=== PATIENT | male | born 1980 | race Caucasian/White ===

== ENCOUNTER → 2016-12-24 | Outpatient (REF) | payer OTHER ==
[2016-12-24 11:57] LABS: ALBUMIN 4.4 GM/DL (3.2-5.2); ALBUMIN/GLOBULIN RATIO 1.42 (1.00-1.93); ALKALINE PHOSPHATASE 85 U/L (45-117); ALT/SGPT 39 U/L (12-78); ANION GAP 9 MEQ/L (8-16); AST/SGOT 23 U/L (15-37); BILIRUBIN,TOTAL 0.4 MG/DL (0.2-1.0); BLOOD UREA NITROGEN 12 MG/DL (7-18); CALCIUM LEVEL 9.9 MG/DL (8.5-10.1); CARBON DIOXIDE LEVEL 24 MEQ/L (21-32); CHLORIDE LEVEL 108 MEQ/L (98-107); CHOLESTEROL LEVEL 161 MG/DL (<200); GLOMERULAR FILTRATION RATE > 60.0 (>60); GLUCOSE, FASTING 94 MG/DL (70-105); POTASSIUM SERUM 4.1 MEQ/L (3.5-5.1); SODIUM LEVEL 141 MEQ/L (136-145); TOTAL PROTEIN 7.5 GM/DL (6.4-8.2); TRIGLYCERIDES LEVEL 215 MG/DL (<150); URIC ACID 6.6 MG/DL (3.5-7.2)
== END ==
LOC: M SFHCPLAZ 09:52
PROVIDERS: ATTEND Family Medicine
DX: M1A.9XX0 Chronic gout, unspecified, without tophus (tophi) (principal); R55 Syncope and collapse; Z82.41 Family history of sudden cardiac death

== ENCOUNTER → 2017-03-24 | Outpatient (REF) | payer OTHER | LOC: M SFHCPLAZ 10:46 | PROVIDERS: ATTEND Family Medicine | DX: M1A.9XX0 Chronic gout, unspecified, without tophus (tophi) (principal); R42 Dizziness and giddiness ==

== ENCOUNTER → 2017-04-16 | Outpatient (CLI) | payer OTHER ==
[~2017-04-16] MED LIST: PROHANCE 279.3MG/ML 15ML VIAL (A9576) As Ordered ONE
--- NOTE | 2017-04-17 09:59 | REP ---
MRI BRAIN WITHOUT AND WITH CONTRAST: HISTORY: Vertigo. CONTRAST: ProHance 24 mL. There are no areas of abnormal signal intensity in the brain parenchyma. There is no intraparenchymal hemorrhage, infarct, mass or midline shift. There is no abnormal enhancement. 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 The ventricular system is normal in appearance. There is no extracerebral collection. There is no cerebellopontine angle mass. The inner ear structures are normal in appearance. The mastoid air cells and sinuses are clear. IMPRESSION: There is no intracranial lesion. Signed by Emiliano Cintron MD 04/17/2017 10:02 A
== END ==
LOC: M RAD 18:37
PROVIDERS: ATTEND Family Medicine
DX: R42 Dizziness and giddiness (principal)
CPT/HCPCS: 70553; A9576

== ENCOUNTER 2017-06-14 20:26 | Emergency (ER) | payer OTHER ==
[2017-06-14] MEDS: NORCO 5/325MG TABLET (BULK FOR ED) PO (21:49)
== END 2017-06-14 21:58 | disposition home or self-care (01) ==
LOC: M ED 20:26
DX: S92.001A Unspecified fracture of right calcaneus, initial encounter for closed fracture (principal); X58.XXXA Exposure to other specified factors, initial encounter; Y92.009 Unspecified place in unspecified non-institutional (private) residence as the place of occurrence of the external cause; Y93.89 Activity, other specified; Y99.8 Other external cause status; M10.9 Gout, unspecified; F17.210 Nicotine dependence, cigarettes, uncomplicated; Z79.899 Other long term (current) drug therapy; Z88.8 Allergy status to other drugs, medicaments and biological substances; Z91.048 Other nonmedicinal substance allergy status
CPT/HCPCS: 73630

== ENCOUNTER → 2017-07-25 | Outpatient (REF) | payer OTHER ==
[2017-07-25 12:46] LABS: BASO # 0.1 10^3/uL (0.0-0.2); BASO % 0.7 % (0.0-1.0); EOS # 0.3 10^3/uL (0.0-0.50); EOS % 3.1 % (0.0-3.0); HEMATOCRIT 47.8 % (42.0-52.0); HEMOGLOBIN 15.8 g/dl (14.0-18.0); IMMATURE GRANULOCYTE % 0.6 % (0-3.0); LYMPH # 3.1 10^3/uL (1.5-4.5); LYMPH % 34.1 % (24.0-44.0); MEAN CORPUSCULAR HEMOGLOBIN 27.9 pg (27.0-33.0); MEAN CORPUSCULAR HGB CONC 33.1 g/dl (32.0-36.5); MEAN CORPUSCULAR VOLUME 84.5 fl (80.0-96.0); MONO # 0.7 10^3/uL (0.0-0.8); MONO % 7.4 % (0.0-5.0); NEUTROPHILS # 4.9 10^3/uL (1.8-7.7); NEUTROPHILS % 54.1 % (36.0-66.0); PLATELET COUNT, AUTOMATED 225 10^3/uL (150-450); RED BLOOD COUNT 5.66 10^6/uL (4.30-6.10); RED CELL DISTRIBUTION WIDTH 13.1 % (11.5-14.5)
[2017-07-25 12:59] LABS: ALBUMIN 4.4 GM/DL (3.2-5.2); ALBUMIN/GLOBULIN RATIO 1.33 (1.00-1.93); ALKALINE PHOSPHATASE 82 U/L (45-117); ALT/SGPT 61 U/L (12-78); ANION GAP 9 MEQ/L (8-16); AST/SGOT 29 U/L (7-37); BILIRUBIN,TOTAL 0.6 MG/DL (0.2-1.0); BLOOD UREA NITROGEN 15 MG/DL (7-18); CALCIUM LEVEL 9.1 MG/DL (8.5-10.1); CARBON DIOXIDE LEVEL 27 MEQ/L (21-32); CHLORIDE LEVEL 106 MEQ/L (98-107); CREATININE FOR GFR 0.81 MG/DL (0.70-1.30); GLOMERULAR FILTRATION RATE > 60.0 (>60); GLUCOSE, FASTING 89 MG/DL (70-100); SODIUM LEVEL 142 MEQ/L (136-145); TOTAL PROTEIN 7.7 GM/DL (6.4-8.2)
== END ==
LOC: M LABNEURO 10:57
DX: G43.909 Migraine, unspecified, not intractable, without status migrainosus (principal)

== ENCOUNTER → 2017-12-15 | Outpatient (REF) | payer OTHER ==
[2017-12-15 16:08] LABS: ERYTHROCYTE SEDIMENTATION RATE 10 mm/hr (0-15)
[2017-12-15 16:10] LABS: C REACTIVE PROTEIN QUANTITATIV 0.96 MG/DL (0.00-0.30)
[2017-12-17 14:58] LABS: IgG P18 AB Absent (.); IgG P23 AB Absent (.); IgG P28 AB Absent (.); IgG P30 AB Absent (.); IgG P39 AB Absent (.); IgG P41 AB Absent (.); IgG P45 AB Absent (.); IgG P58 AB Absent (.); IgG P66 AB Absent (.); IgG P93 AB Absent (.); IgM P23 AB Present (.); IgM P39 AB Absent (.); IgM P41 AB Absent (.); LYME IgG WB INTERPRETATION Negative (.); LYME IgM WB INTERPRETATION Negative (.)
== END ==
LOC: M SFHCPLAZ 12:32
DX: R26.0 Ataxic gait (principal)
CPT/HCPCS: 86140

== ENCOUNTER → 2018-03-24 | Outpatient (CLI) | payer OTHER | LOC: M SLEEP HO 12:18 | DX: G47.33 Obstructive sleep apnea (adult) (pediatric) (principal) | CPT/HCPCS: G0399 ==

== ENCOUNTER → 2018-03-24 | Outpatient (CLI) | payer OTHER | LOC: M PAIN 10:00 | DX: G43.109 Migraine with aura, not intractable, without status migrainosus (principal); M50.20 Other cervical disc displacement, unspecified cervical region; M54.12 Radiculopathy, cervical region; F41.9 Anxiety disorder, unspecified; F32.9 Major depressive disorder, single episode, unspecified; F17.210 Nicotine dependence, cigarettes, uncomplicated; Z79.899 Other long term (current) drug therapy; Z91.09 Other allergy status, other than to drugs and biological substances; Z87.39 Personal history of other diseases of the musculoskeletal system and connective tissue; Z86.61 Personal history of infections of the central nervous system | CPT/HCPCS: G0463 ==

== ENCOUNTER → 2018-04-09 | Outpatient (CLI) | payer OTHER ==
[~2018-04-09] MED LIST changes: +ISOVUE-M 300 61% 15ML VIAL (Q9967) As Ordered; +LIDOCAINE 1% SDV INJ 30 ML VIAL As Ordered; -PROHANCE 279.3MG/ML 15ML VIAL (A9576) As Ordered ONE; +diazePAM 5 MG TAB As Ordered; +methylPREDNISolone SUSP 40 MG/ML (DEPO-medrol) VIAL (J1030) As Ordered; +oxyCODONE 5MG TAB As Ordered
== END ==
LOC: M PAIN 11:15
DX: G89.29 Other chronic pain (principal); M50.10 Cervical disc disorder with radiculopathy, unspecified cervical region; G43.909 Migraine, unspecified, not intractable, without status migrainosus; F32.9 Major depressive disorder, single episode, unspecified; F41.9 Anxiety disorder, unspecified; F17.210 Nicotine dependence, cigarettes, uncomplicated; Z79.899 Other long term (current) drug therapy; Z91.09 Other allergy status, other than to drugs and biological substances; Z87.39 Personal history of other diseases of the musculoskeletal system and connective tissue
CPT/HCPCS: J1030

== ENCOUNTER → 2018-05-12 | Outpatient (CLI) | payer OTHER | LOC: M PAIN 14:15 | DX: M50.20 Other cervical disc displacement, unspecified cervical region (principal); G43.909 Migraine, unspecified, not intractable, without status migrainosus; F41.9 Anxiety disorder, unspecified; F32.9 Major depressive disorder, single episode, unspecified; F17.210 Nicotine dependence, cigarettes, uncomplicated; Z91.09 Other allergy status, other than to drugs and biological substances; E66.01 Morbid (severe) obesity due to excess calories; Z68.36 Body mass index [BMI] 36.0-36.9, adult; Z79.899 Other long term (current) drug therapy; Z87.39 Personal history of other diseases of the musculoskeletal system and connective tissue; Z86.69 Personal history of other diseases of the nervous system and sense organs; Z86.61 Personal history of infections of the central nervous system | CPT/HCPCS: G0463 ==

== ENCOUNTER → 2018-06-15 | Outpatient (CLI) | payer OTHER ==
[~2018-06-15] MED LIST changes: +ALLO10TA PO; +AMIT25TA PO; +IMIT50TA PO; -ISOVUE-M 300 61% 15ML VIAL (Q9967) As Ordered; +ISOVUE-M 300 61% 15ML VIAL (Q9967) As Ordered ONE; -LIDOCAINE 1% SDV INJ 30 ML VIAL As Ordered; +LIDOCAINE 1% SDV INJ 30 ML VIAL As Ordered ONE; +NAPR1TAB86 PO; +NORCOTAB PO; +SING5CHW23 PO; -diazePAM 5 MG TAB As Ordered; +diazePAM 5 MG TAB As Ordered ONE; -methylPREDNISolone SUSP 40 MG/ML (DEPO-medrol) VIAL (J1030) As Ordered; +methylPREDNISolone SUSP 40 MG/ML (DEPO-medrol) VIAL (J1030) As Ordered ONE; -oxyCODONE 5MG TAB As Ordered; +oxyCODONE 5MG TAB As Ordered ONE
--- NOTE | 2018-06-15 11:06 | REP ---
Partial cervical spine series: Three views. History: Cervical epidural steroid injection for pain. 17 seconds of fluoroscopy time is reported. Findings: A sequence of three last image hold fluoroscopically obtained spot radiographs of the cervical thoracic junction document needle position and contrast injection associated with cervical injection procedure. Electronically Signed by Sonido Eubanks MD 06/15/2018 07:19 P
--- NOTE | 2018-07-01 01:23 | ECWPNPC ---
PATIENT NAME: ROBBY GATES : 1980 GENDER: MALE VISIT DATE: 06/15/2018 DISCHARGE DATE: 06/15/18 1051 VISIT LOCKED DATE TIME: PHYSICIAN: CINDY ESPINOSA MD RESOURCE: CINDY ESPINOSA MD REASON FOR APPOINTMENT 1. C7/T1 ZULEIMA HISTORY OF PRESENT ILLNESS HISTORY OF PRESENT ILLNESS: PAIN THE PATIENT DESCRIBES THE PAIN... FALL RISK SCREENING: SCREENING :NO FALLS IN THE PAST YEAR CURRENT MEDICATIONS TAKING IBU-200 200 MG TABLET 1 TABLET WITH FOOD OR MILK NEEDED ORALLY EVERY 6 HRS, NOTES: DAYS AGO TAKING AMITRIPTYLINE HCL 75 MG TABLET 1 TABLET ORALLY ONCE A DAY, NOTES: 06/14/182299 TAKING SINGULAIR 10 MG TABLET 1 TABLET IN THE EVENING ORALLY ONCE A DAY, NOTES: 06/14/182299 TAKING NASACORT ALLERGY 24HR 55 MCG/ACT AEROSOL 1 PUFF IN EACH NOSTRIL NASALLY ONCE A DAY, NOTES: 2 DAYS AGO TAKING TRIAMCINOLONE ACETONIDE 0.1 % CREAM 1 APPLICATION TO AFFECTED AREA EXTERNALLY TWICE A DAY, NOTES: MONTHS AGO TAKING MAY HAVE BOTOX DIRECTED TAKING VERAPAMIL HCL ER 180 MG TABLET EXTENDED RELEASE 1 TABLET ORALLY ONCE A DAY, NOTES: 06/14/182299 TAKING ALLOPURINOL 100 MG TABLETS 1/2 ORALLY DAILY, NOTES: 06/14/182299 TAKING EFFEXOR XR 37.5 MG CAPSULE EXTENDED RELEASE 24 HOUR 1 CAPSULE WITH FOOD ORALLY ONCE A DAY, NOTES: 06/14/182299 TAKING MELATONIN 3 MG TABLET 1 TABLET AT BEDTIME NEEDED WITH FOOD ORALLY ONCE A DAY, NOTES: 06/14/18 230 TAKING NAPROXEN SODIUM 220 MG TABLET 2 TABLETS WITH FOOD OR MILK NEEDED ORALLY EVERY 12 HRS, NOTES: 06/14/18 1100 NOT-TAKING MAGNESIUM OXIDE 500 MG TABLET 1 TABLET ORALLY ONCE A DAY NOT-TAKING TIZANIDINE HCL 2 MG TABLET 1 TABLET NEEDED ORALLY THREE TIMES A DAY MEDICATION LIST REVIEWED AND RECONCILED WITH THE PATIENT PAST MEDICAL HISTORY SYNCOPE ANXIETY WITH DEPRESSION GOUT NECK/SHOULDER PAIN MIGRAINES PINEAL GLAND CYST ALLERGIES METALS: RASH: ALLERGY SURGICAL HISTORY NO SURGICAL HISTORY DOCUMENTED. FAMILY HISTORY FATHER: , OF ?ANEURISM MOTHER: ALIVE, ALCOHOLISM, HEART MURMUR, KIDNEY [place] SIBLINGS: 2 HALF BROTHERS AND 1 HALF SISTER ON PATERNAL SIDE; , NO KNOWN MEDICAL PROBLEMS PATERNAL GRAND FATHER: , IN LATE 30S OR EARLY 40S FROM [place] SOCIAL HISTORY GENERAL: TOBACCO USE ARE YOU A:CURRENT SMOKER ARE YOU INTERESTED IN QUITTING?THINKING ABOUT QUITTING HAS TRIED CUTTING BACK PREVIOUS QUIT ATTEMPTS?YES, MORE THAN 6 MONTHS AGO. COUNSELED THE PATIENT ON SMOKING CESSATION, EDUCATION [id number]/07/2019 HOW MANY CIGARETTES A DAY DO YOU SMOKE?11-20 HOW SOON AFTER YOU WAKE UP DO YOU SMOKE YOUR FIRST CIGARETTE?6-30 MIN HOW OFTEN DO YOU SMOKE CIGARETTES?EVERY DAY PATIENT COUNSELED ON THE DANGERS OF TOBACCO USE AND URGED TO QUIT:06/15/2018 SMOKING CESSATION INFORMATION GIVEN05/20/2018 BMI CARE GOAL FOLLOW-UP ABOVE NORMAL BMI FOLLOW-UPWEIGHT MONITORING ALCOHOL SCREENING DID YOU HAVE A DRINK CONTAINING ALCOHOL IN THE PAST YEAR?YES HOW OFTEN DID YOU HAVE SIX OR MORE DRINKS ON ONE OCCASION IN THE PAST YEAR?NEVER (0 POINTS) HOW MANY DRINKS DID YOU HAVE ON A TYPICAL DAY WHEN YOU WERE DRINKING IN THE PAST YEAR?1 OR 2 (0 POINTS) HOW OFTEN DID YOU HAVE A DRINK CONTAINING ALCOHOL IN THE PAST YEAR?MONTHLY OR LESS (1 POINT) POINTS1 INTERPRETATIONNEGATIVE RECREATIONAL DRUG USE DRUG USE?NO CAFFEINE CAFFEINE USE?YES 1 POT COFFEE/ DAY 1-2 [place]/ DAY SEXUAL HX HAD SEX IN THE LAST 12 MONTHS (VAGINAL, ORAL, OR ANAL)?YES WITHWOMEN ONLY PREVENTION STRATEGIES DISCUSSED:OTHER USE PROTECTION?NO HAVE YOU EVER HAD AN STD?NO HIV / HEP-C SCREENING HIV TEST OFFERED TO PATIENT:YES DATE OFFERED:12/23/2016 TEST ACCEPTED:YES HOAHAOISM HOAHAOISM NO SIKHISM BELIEFS THAT WOULD IMPACT HEALTH CARE. LANGUAGE LANGUAGES SPOKEN:[place] EDUCATION LEVEL OF EDUCATION:NOT FINISHED COLLEGE LEARNING BARRIERS / SPECIAL NEEDS CHANGE FROM LAST VISIT?NO BARRIERS TO LEARNING?NO HEARING IMPAIRED?NO VISION IMPAIRED?YES COGNITIVELY IMPAIRED?NO :CORRECTIVE LENSES READINESS TO LEARN?YES LEARNING PREFERENCES?YES :BOOKLETS, HANDOUTS LEARNING CAPABILITIES PRESENT?YES EMOTIONAL BARRIERS?NO SPECIAL DEVICES?NO SALES SUPPORT CONSULTANT NEEDED?NO DOMESTIC VIOLENCE DO YOU FEEL SAFE IN YOUR ENVIRONMENT?YES OCCUPATION: [employer], WILL BE WORKING FOR [employer] . DIET: REGULAR. EXERCISE: NO REGULAR EXERCISE. MARITAL STATUS: SINGLE. OTHERS AT HOME: 6 KIDS, GIRLFRIEND . PAIN CLINIC PFS, CLERGY, PUBLIC HEALTH REFERRALS HAS THE PATIENT BEEN EDUCATED REGARDING HIS/HER PLAN OF CARE?YES HAS THE PATIENT BEEN EDUCATED REGARDING PAIN, THE RISK FOR PAIN, THE IMPORTANCE OF EFFECTIVE PAIN MANAGEMENT, AND THE PAIN ASSESSMENT PROCESS?YES ADVANCE DIRECTIVE ADVANCE DIRECTIVE DISCUSSED WITH PATIENT:YES DECLINED HCP INFORMATION. REVIEWED WITH PATIENT 03/24/18 1022 JSREVIEWED WITH PATIENT 06/15/18 0949 JS. HOSPITALIZATION/MAJOR DIAGNOSTIC PROCEDURE VIRAL MENINGITIS AGE 15 REVIEW OF SYSTEMS REVIEWED BY: PROVIDER: . CONSTITUTIONAL: ANY CHANGE IN YOUR MEDICAL CONDITION? NO . CHILLS NO . FEVER NO . INFECTION: DO YOU HAVE NEW INFECTIONS? NO . DO YOU HAVE HISTORY OF MRSA? NO . MUSCULOSKELETAL: ANY NEW PATTERNS OF PAIN OR NUMBNESS? YES, STATES NEW OCCASSIONAL NUMBNESS TO FINGERS AND TOES . GASTROENTEROLOGY: ANY NEW CHANGE IN BOWEL CONTROL? NO . GENITOURINARY: ANY NEW CHANGE IN BLADDER CONTROL? NO . IS THERE A CHANCE YOU COULD BE ? NO . HEMATOLOGY/LYMPH: DO YOU TAKE ANY BLOOD THINNERS? (FOR EXAMPLE- COUMADIN, PLAVIX, AGGRENOX, PLATEL, PRADAXA, OR XARELTO) NO . WHEN WAS YOUR LAST DOSE? DATE: TIME: . NEUROLOGY: HAVE YOU FALLEN IN THE PAST 6 MONTHS? NO . ANY NEW EXTREMITY NUMBNESS OR WEAKNESS? YES, NEW OCCASSIONAL NUMBNESS TO FINGERS AND TOES . CARDIOLOGY: DO YOU HAVE A PACEMAKER OR DEFIBRILLATOR? NO . RESPIRATORY: HAVE YOU BEEN SICK IN THE PAST WEEK? NO . FEVER NO . FLU LIKE SYMPTOMS? NO . COUGH NO . INTEGUMENTARY: DO YOU HAVE ANY RASHES OR OPEN SORES? NO . ALLERGIC/IMMUNO: ARE YOU ALLERGIC TO SHELLFISH OR IV DYE? NO . ANY NEW ALLERGIES? NO . PSYCHIATRIC: DO YOU HAVE THOUGHTS OF HURTING YOURSELF OR SOMEONE ELSE? NO . ARE YOU ABUSED, NEGLECTED, OR IN AN UNSAFE ENVIRONMENT? NO . ENDOCRINOLOGY: ARE YOU DIABETIC? NO . OTHER: DO YOU NEED ANY PRESCRIPTIONS? NO . IF YES, PLEASE LIST: ____ . ANY NEW PROBLEMS WITH YOUR MEDICATIONS? NO . WHEN DID YOU LAST EAT? ____06/14/18 2200 . WHEN DID YOU LAST DRINK? ____06/15/18 0600 . WHAT DID YOU LAST DRINK? ____WATER . NAME OF PERSON DRIVING YOU HOME? ____BRITTANY . DO YOU HAVE ANY OTHER QUESTIONS OR CONCERNS NO . VITAL SIGNS WT 285 LBS, HT 74 IN, BMI 36.59 INDEX, BP 147/84 MM HG, HR 87 /MIN, RR 18 /MIN, TEMP 97.4 F, OXYGEN SAT % 96%, SAFE IN ENV? (Y/N) YES, NA INITIALS AW 0900, REVIEWED BY: JS. ASSESSMENTS CERVICAL DISC DISORDER WITH RADICULOPATHY OF CERVICAL REGION - M50.10 (PRIMARY) PROCEDURES PN CERVICAL EPIDURAL PRE PROCEDURE DIAGNOSIS CERVICAL DISC DISORDER WITH RADICULOPATHY POST PROCEDURE DIAGNOSIS CERVICAL DISC DISORDER WITH RADICULOPATHY PROCEDURE CERVICAL EPIDURAL STEROID INJECTION UNDER FLUOROSCOPIC GUIDANCE SURGEON DR. CINDY ESPINOSA SLOT SHIFT SUPERVISOR NONE ANESTHESIA LOCAL PRE PROCEDURE NOTE THE PATIENT HAS A HISTORY OF CHRONIC CERVICAL PAIN. I EVALUATE THE PATIENT AND REVIEWED THE CHART. I WENT OVER THE RISKS, ALTERNATIVES, AND BENEFITS ASSOCIATED WITH THIS PROCEDURE. THE PATIENT WOULD LIKE TO PROCEED AND GIVE CONSENT TO PERFORMED THE PROCEDURE. THE PATIENT DENIES UNEXPLAINABLE WEIGHT LOSS, FEVER, CHILLS, OR NEW CHANGES IN URINARY OR BOWEL CONTROL DESCRIPTION OF PROCEDURE THE PATIENT WAS BROUGHT TO THE PROCEDURE ROOM AND PLACED IN THE PRONE POSITION. THE CERVICOTHORACIC AREA WAS CLEANED WITH BETADINE SOLUTION AND DRAPED ASEPTICALLY. THE PROCEDURE WAS DONE UNDER STERILE CONDITIONS. I CHECKED LATERALITY AND THE LEVEL WHERE THE PROCEDURE WAS GOING TO BE PERFORMED WITH THE PATIENT AND THE SUPPORTING STAFF AT THE MOMENT OF THE TIME OUT IN THE PROCEDURE ROOM. UNDER FLUOROSCOPIC GUIDANCE, THE TARGET WAS SELECTED AT THE INTERLAMINAR LEVEL OF C7-T1. LIDOCAINE WAS USED TO NUMB THE SKIN AND THE SUBCUTANEOUS TISSUE BELOW IT. EPIDURAL TUOHY NEEDLE 17-GAUGE WAS ADVANCED UNDER FLUOROSCOPIC GUIDANCE AND FOLLOWING PATIENT FEEDBACK UNTIL THE EPIDURAL SPACE WAS REACHED 6 CM DEEP INTO THE SKIN BY THE LOSS OF RESISTANCE TECHNIQUE. ISOVUE M DYE 30%, 0.25 ML, WAS INJECTED SHOWING ADEQUATE SPREAD OF THE DYE. THEN, A SOLUTION OF 3 ML OF NORMAL SALINE WITH DEPO-MEDROL 60 MG WAS INJECTED SLOWLY FOLLOWING PATIENT FEEDBACK. THERE WAS NO EVIDENCE OF BLOOD, PARESTHESIA OR CEREBROSPINAL FLUID DURING THE PROCEDURE. THE PATIENT WAS SENT TO THE RECOVERY ROOM. THE PATIENT WAS MOVING THE EXTREMITIES AND DOING WELL. THERE WAS NO COMPLICATION DURING THE PROCEDURE. FLUOROSCOPY TIME WAS 17 SECONDS POST PROCEDURE NOTE THE PATIENT WILL BE SEEN IN A FOLLOW UP IN THE NEXT FEW WEEKS. INSTRUCTIONS WERE GIVEN, QUESTIONS WERE ANSWERED, AND THE PATIENT EXPRESSED UNDERSTANDING AND AGREES WITH THE PLAN. I, KANDY HARPER, DOCUMENTED THE ABOVE INFORMATION ACTING A SCRIBE FOR DR. ESPINOSA. I HAVE REVIEWED THE ABOVE DOCUMENT, WRITTEN BY KANDY HARPER SCRIBE AND I VERIFY THAT IT IS ACCURATE. DIAGNOSTIC IMAGING [facility] [place] GUIDE SPINE INJECTION (PAIN)[id number] PROCEDURE CODES 6045F RADXPS IN END [id number] PXD [id number] CERVICAL/THORACIC W/ IMAGING DISPOSITION & COMMUNICATION FOLLOW UP 3 WEEKS ELECTRONICALLY SIGNED BY CINDY ESPINOSA MD, MD ON 06/30/2018 AT 01:00 PM EST DISCLAIMER : THIS IS A VISIT SUMMARY EXTRACTED FROM THE [facility] CHART. IT IS NOT A COPY OF THE [facility] PROGRESS NOTE. MTDD
== END ==
LOC: M PAIN 08:45
PROVIDERS: ATTEND Anesthesiology
DX: G89.29 Other chronic pain (principal); M50.10 Cervical disc disorder with radiculopathy, unspecified cervical region; F41.8 Other specified anxiety disorders; G43.909 Migraine, unspecified, not intractable, without status migrainosus; F17.210 Nicotine dependence, cigarettes, uncomplicated; Z91.09 Other allergy status, other than to drugs and biological substances; E66.01 Morbid (severe) obesity due to excess calories; Z68.36 Body mass index [BMI] 36.0-36.9, adult; Z79.899 Other long term (current) drug therapy; Z86.69 Personal history of other diseases of the nervous system and sense organs; Z87.39 Personal history of other diseases of the musculoskeletal system and connective tissue; Z86.61 Personal history of infections of the central nervous system
CPT/HCPCS: 62321; J1030; Q9967

== ENCOUNTER → 2018-07-31 | Outpatient (CLI) | payer OTHER ==
[~2018-07-31] MED LIST changes: -ISOVUE-M 300 61% 15ML VIAL (Q9967) As Ordered ONE; -LIDOCAINE 1% SDV INJ 30 ML VIAL As Ordered ONE; -diazePAM 5 MG TAB As Ordered ONE; -methylPREDNISolone SUSP 40 MG/ML (DEPO-medrol) VIAL (J1030) As Ordered ONE; -oxyCODONE 5MG TAB As Ordered ONE
--- NOTE | 2018-08-15 23:35 | ECWPNPC ---
PATIENT NAME: ROBBY GATES : 1980 GENDER: MALE VISIT DATE: 07/31/2018 DISCHARGE DATE: 07/31/18 0951 VISIT LOCKED DATE TIME: PHYSICIAN: BHAVIK QUACH RESOURCE: BHAVIK QUACH REASON FOR APPOINTMENT 1. POST PROC HISTORY OF PRESENT ILLNESS HISTORY OF PRESENT ILLNESS: HERE FORPOST PROCEDURE F/U.HAD ZULEIMA ON 06/15/18.REPORTING NO IMPROVEMENT IN PAIN POST PROCEDURE.RATING NECK AND UPPER BACK PAIN 6/10 VAS. PAIN THE PATIENT DESCRIBES THE PAIN... FALL RISK SCREENING: SCREENING : NO FALLS IN THE PAST YEAR. CURRENT MEDICATIONS TAKING IBU-200 200 MG TABLET 1 TABLET WITH FOOD OR MILK NEEDED ORALLY EVERY 6 HRS TAKING AMITRIPTYLINE HCL 75 MG TABLET 1 TABLET ORALLY ONCE A DAY TAKING SINGULAIR 10 MG TABLET 1 TABLET IN THE EVENING ORALLY ONCE A DAY TAKING NASACORT ALLERGY 24HR 55 MCG/ACT AEROSOL 1 PUFF IN EACH NOSTRIL NASALLY ONCE A DAY TAKING MELATONIN 3 MG TABLET 1 TABLET AT BEDTIME NEEDED WITH FOOD ORALLY ONCE A DAY TAKING NAPROXEN SODIUM 220 MG TABLET 2 TABLETS WITH FOOD OR MILK NEEDED ORALLY EVERY 12 HRS TAKING EFFEXOR XR 37.5 MG CAPSULE EXTENDED RELEASE 24 HOUR 1 CAPSULE WITH FOOD ORALLY ONCE A DAY NOT-TAKING TRIAMCINOLONE ACETONIDE 0.1 % CREAM 1 APPLICATION TO AFFECTED AREA EXTERNALLY TWICE A DAY NOT-TAKING MAY HAVE BOTOX DIRECTED NOT-TAKING VERAPAMIL HCL ER 180 MG TABLET EXTENDED RELEASE 1 TABLET ORALLY ONCE A DAY NOT-TAKING ALLOPURINOL 100 MG TABLETS 1/2 ORALLY DAILY NOT-TAKING MAGNESIUM OXIDE 500 MG TABLET 1 TABLET ORALLY ONCE A DAY NOT-TAKING TIZANIDINE HCL 2 MG TABLET 1 TABLET NEEDED ORALLY THREE TIMES A DAY MEDICATION LIST REVIEWED AND RECONCILED WITH THE PATIENT PAST MEDICAL HISTORY SYNCOPE ANXIETY WITH DEPRESSION GOUT NECK/SHOULDER PAIN MIGRAINES PINEAL GLAND CYST ALLERGIES METALS: RASH: ALLERGY SURGICAL HISTORY NO SURGICAL HISTORY DOCUMENTED. FAMILY HISTORY FATHER: , OF ?ANEURISM MOTHER: ALIVE, ALCOHOLISM, HEART MURMUR, KIDNEY [place] SIBLINGS: 2 HALF BROTHERS AND 1 HALF SISTER ON PATERNAL SIDE; , NO KNOWN MEDICAL PROBLEMS PATERNAL GRAND FATHER: , IN LATE 30S OR EARLY 40S FROM [place] SOCIAL HISTORY GENERAL: TOBACCO USE ARE YOU A:CURRENT SMOKER ARE YOU INTERESTED IN QUITTING?THINKING ABOUT QUITTING HAS TRIED CUTTING BACK PREVIOUS QUIT ATTEMPTS?YES, MORE THAN 6 MONTHS AGO. COUNSELED THE PATIENT ON SMOKING CESSATION, EDUCATION [id number]/22/2019 HOW MANY CIGARETTES A DAY DO YOU SMOKE?11-20 HOW SOON AFTER YOU WAKE UP DO YOU SMOKE YOUR FIRST CIGARETTE?6-30 MIN HOW OFTEN DO YOU SMOKE CIGARETTES?EVERY DAY PATIENT COUNSELED ON THE DANGERS OF TOBACCO USE AND URGED TO QUIT:07/31/2018 SMOKING CESSATION INFORMATION GIVEN05/20/2018 BMI CARE GOAL FOLLOW-UP ABOVE NORMAL BMI FOLLOW-UPWEIGHT MONITORING ALCOHOL SCREENING DID YOU HAVE A DRINK CONTAINING ALCOHOL IN THE PAST YEAR?YES HOW OFTEN DID YOU HAVE SIX OR MORE DRINKS ON ONE OCCASION IN THE PAST YEAR?NEVER (0 POINTS) HOW MANY DRINKS DID YOU HAVE ON A TYPICAL DAY WHEN YOU WERE DRINKING IN THE PAST YEAR?1 OR 2 (0 POINTS) HOW OFTEN DID YOU HAVE A DRINK CONTAINING ALCOHOL IN THE PAST YEAR?MONTHLY OR LESS (1 POINT) POINTS1 INTERPRETATIONNEGATIVE RECREATIONAL DRUG USE DRUG USE?NO CAFFEINE CAFFEINE USE?YES 1 POT COFFEE/ DAY 1-2 [place]W/ DAY SEXUAL HX HAD SEX IN THE LAST 12 MONTHS (VAGINAL, ORAL, OR ANAL)?YES WITHWOMEN ONLY PREVENTION STRATEGIES DISCUSSED:OTHER USE PROTECTION?NO HAVE YOU EVER HAD AN STD?NO HIV / HEP-C SCREENING HIV TEST OFFERED TO PATIENT:YES DATE OFFERED:12/23/2016 TEST ACCEPTED:YES ISLAM ISLAM NO YAZIDI BELIEFS THAT WOULD IMPACT HEALTH CARE. LANGUAGE LANGUAGES SPOKEN:THAI EDUCATION LEVEL OF EDUCATION:NOT FINISHED COLLEGE LEARNING BARRIERS / SPECIAL NEEDS CHANGE FROM LAST VISIT?NO BARRIERS TO LEARNING?NO HEARING IMPAIRED?NO VISION IMPAIRED?YES COGNITIVELY IMPAIRED?NO :CORRECTIVE LENSES READINESS TO LEARN?YES LEARNING PREFERENCES?YES :BOOKLETS, HANDOUTS LEARNING CAPABILITIES PRESENT?YES EMOTIONAL BARRIERS?NO SPECIAL DEVICES?NO ELEMENTARY PRINCIPAL NEEDED?NO DOMESTIC VIOLENCE DO YOU FEEL SAFE IN YOUR ENVIRONMENT?YES OCCUPATION: [employer], WILL BE WORKING FOR [employer] . DIET: REGULAR. EXERCISE: NO REGULAR EXERCISE. MARITAL STATUS: SINGLE. OTHERS AT HOME: 6 KIDS, GIRLFRIEND . PAIN CLINIC PFS, CLERGY, PUBLIC HEALTH REFERRALS HAS THE PATIENT BEEN EDUCATED REGARDING HIS/HER PLAN OF CARE?YES HAS THE PATIENT BEEN EDUCATED REGARDING PAIN, THE RISK FOR PAIN, THE IMPORTANCE OF EFFECTIVE PAIN MANAGEMENT, AND THE PAIN ASSESSMENT PROCESS?YES ADVANCE DIRECTIVE ADVANCE DIRECTIVE DISCUSSED WITH PATIENT:YES DECLINED HCP INFORMATION. REVIEWED WITH PATIENT 03/24/18 1022 JSREVIEWED WITH PATIENT 06/15/18 0924 JS. HOSPITALIZATION/MAJOR DIAGNOSTIC PROCEDURE VIRAL MENINGITIS AGE 15 REVIEW OF SYSTEMS REVIEWED BY: PROVIDER: BHAVIK SHORE . CONSTITUTIONAL: ANY CHANGE IN YOUR MEDICAL CONDITION? NO . CHILLS NO . FEVER NO . INFECTION: DO YOU HAVE NEW INFECTIONS? NO . DO YOU HAVE HISTORY OF MRSA? NO . MUSCULOSKELETAL: ANY NEW PATTERNS OF PAIN OR NUMBNESS? YES, BILAT FOOT AND LEG PAIN X MONTHS S/P FALL 03/2018 . GASTROENTEROLOGY: ANY NEW CHANGE IN BOWEL CONTROL? NO . GENITOURINARY: ANY NEW CHANGE IN BLADDER CONTROL? YES, DIFFICULTY URINATING, PT STATES HE IS GOING TO SEE PCP FOR THIS . IS THERE A CHANCE YOU COULD BE ? NO . HEMATOLOGY/LYMPH: DO YOU TAKE ANY BLOOD THINNERS? (FOR EXAMPLE- COUMADIN, PLAVIX, AGGRENOX, PLATEL, PRADAXA, OR XARELTO) NO . WHEN WAS YOUR LAST DOSE? DATE: TIME: . NEUROLOGY: HAVE YOU FALLEN IN THE PAST 12 MONTHS? NO . ANY NEW EXTREMITY NUMBNESS OR WEAKNESS? YES, RIGHT LEG NUMBNESS . CARDIOLOGY: DO YOU HAVE A PACEMAKER OR DEFIBRILLATOR? NO . RESPIRATORY: HAVE YOU BEEN SICK IN THE PAST WEEK? YES, URI RESOLVING . FEVER NO . FLU LIKE SYMPTOMS? NO . COUGH YES, CLEAR MUCOUS . INTEGUMENTARY: DO YOU HAVE ANY RASHES OR OPEN SORES? YES, RASHES TO ARMS . ALLERGIC/IMMUNO: ARE YOU ALLERGIC TO IV DYE? NO . ANY NEW ALLERGIES? NO . PSYCHIATRIC: DO YOU HAVE THOUGHTS OF HURTING YOURSELF OR SOMEONE ELSE? NO . ARE YOU ABUSED, NEGLECTED, OR IN AN UNSAFE ENVIRONMENT? NO . ENDOCRINOLOGY: ARE YOU DIABETIC? NO . OTHER: DO YOU NEED ANY PRESCRIPTIONS? NO . IF YES, PLEASE LIST: ____ . ANY NEW PROBLEMS WITH YOUR MEDICATIONS? YES, WAS PRESCRIBED MELOXICAM BY NECK SURGEON, DIDN'T HELP, PT STOPPED, ALLEVE HELPS MORE . WHEN DID YOU LAST EAT? ____ . WHEN DID YOU LAST DRINK? ____ . WHAT DID YOU LAST DRINK? ____ . NAME OF PERSON DRIVING YOU HOME? ____ . DO YOU HAVE ANY OTHER QUESTIONS OR CONCERNS NO . VITAL SIGNS WT 285.2 LBS, HT 74 IN, BMI 36.61 INDEX, BP 158/91 MM HG, HR 88 /MIN, RR 18 /MIN, TEMP 98.2 F, OXYGEN SAT % 96%, NA INITIALS AW 0909, REVIEWED BY: EM. EXAMINATION GENERAL EXAMINATION: GENERAL APPEARANCE:AWAKE,ALERT ,PLEAASANT . PSYCHAFFECT NORMAL . LUNGS:LUNG KENT ARE CLEAR TO AUSCULTATION BILATERALLY. GOOD MOVEMENT OF AIR . HEART:S1, S2 IN A REGULAR RATE AND RHYTHM. NO SIGNIFICANT MURMURS, RUBS OR GALLOPS NOTED . CERVICALTRIGGER POINTS: CERVICAL AND TRAPEZIUS BILAT..PAIN IS AGGREVATED WITH ROJM NECK . ASSESSMENTS MYALGIA - M79.10 (PRIMARY) TREATMENT MYALGIA NOTES: TPI NECK/RHOMBOID/TRAP. PROCEDURE CODES FA211 ESTABILISHED PATIENT [facility] CHARGE DISPOSITION & COMMUNICATION FOLLOW UP POST (REASON: TPI NECK/RHOMBOID/TRAP) ELECTRONICALLY SIGNED BY MONE DOHERTY ON 08/14/2018 AT 04:05 PM EST DISCLAIMER : THIS IS A VISIT SUMMARY EXTRACTED FROM THE [employer] CHART. IT IS NOT A COPY OF THE [employer] PROGRESS NOTE. HEATHER
== END ==
LOC: M PAIN 09:00
PROVIDERS: ATTEND Nurse Practitioner Family
DX: M79.10 Myalgia, unspecified site (principal); G43.909 Migraine, unspecified, not intractable, without status migrainosus; F41.9 Anxiety disorder, unspecified; F32.9 Major depressive disorder, single episode, unspecified; F17.210 Nicotine dependence, cigarettes, uncomplicated; Z79.899 Other long term (current) drug therapy; Z91.09 Other allergy status, other than to drugs and biological substances; Z86.69 Personal history of other diseases of the nervous system and sense organs; Z87.39 Personal history of other diseases of the musculoskeletal system and connective tissue

== ENCOUNTER → 2018-08-07 | Outpatient (CLI) | payer OTHER ==
--- NOTE | 2018-08-07 18:35 | REP ---
Clinical: Lower back pain. Technique: AP, lateral, bilateral oblique and coned-down views of the lumbosacral spine. Findings: Evidence for bilateral L5 spondylolysis without spondylolisthesis. Alignment and lordosis is maintained. No acute fracture / compression injury or subluxation. The disc spaces and planes are relatively normal for age. Impression: 1. Chronic L5 spondylolysis without spondylolisthesis. 2. Otherwise normal age appropriate examination Electronically Signed by Bogdan Aranda MD 08/07/2018 06:26 P
--- NOTE | 2018-08-07 18:44 | REP ---
Clinical: Right hip pain. Technique: Neutral and frog lateral views of the right hip. Findings: No acute fracture dislocation. Skeletal structures, joint spaces, and surrounding soft tissues are relatively normal for age. Impression: Essentially age-appropriate right hip radiographs. Electronically Signed by Bogdan Aranda MD 08/07/2018 06:35 P
--- NOTE | 2018-08-07 20:59 | REP ---
Clinical: Urinary leak. Dribbling. Technique: Real time pepper scale ultrasound examination using curved array transducer. Findings: The bladder was under distended and wall thickening cannot be properly evaluated. No obvious bladder mass lesion is appreciated. Ureteral jets were not identified during examination. Prevoid bladder with the patient feeling full measured 6.2 x 5.8 x 3.1 cm (58 ml). Postvoid bladder measures 4.6 x 5.4 x 1.5 cm (19 ml). Postvoid residual equals 33%. A homogeneous structure is identified posterior to the bladder measuring 5.4 x 3.3 x 5.6 cm and may represent prostate gland. Impression: 1. Essentially incomplete evaluation due to under distension despite the patient feeling full. Electronically Signed by Bogdan Aranda MD 08/07/2018 08:51 P
== END ==
LOC: M RAD 17:23
PROVIDERS: ATTEND Nurse Practitioner Family
DX: N39.43 Post-void dribbling (principal); M47.896 Other spondylosis, lumbar region

== ENCOUNTER → 2018-08-18 | Outpatient (CLI) | payer OTHER ==
[~2018-08-18] MED LIST changes: +BUPIVACAINE HCL 0.25% 10 ML VIAL As Ordered ONE; +BUPIVACAINE HCL 0.25% 30 ML VIAL As Ordered ONE; +TRIAMCINOLONE ACETONIDE SUSP 40 MG/ML VIAL (J3301) As Ordered ONE; +diazePAM 5 MG TAB As Ordered ONE; +oxyCODONE 5MG TAB As Ordered ONE
--- NOTE | 2018-09-01 02:37 | ECWPNPC ---
PATIENT NAME: ROBBY GATES : 1980 GENDER: MALE VISIT DATE: 08/18/2018 DISCHARGE DATE: 08/18/18 1423 VISIT LOCKED DATE TIME: PHYSICIAN: CINDY ESPINOSA MD RESOURCE: CINDY ESPINOSA MD REASON FOR APPOINTMENT 1. TPI NECK/RHOMBOID/TRAP HISTORY OF PRESENT ILLNESS HISTORY OF PRESENT ILLNESS: PAIN THE PATIENT DESCRIBES THE PAIN... FALL RISK SCREENING: SCREENING : NO FALLS IN THE PAST YEAR. CURRENT MEDICATIONS TAKING IBU-200 200 MG TABLET 1 TABLET WITH FOOD OR MILK NEEDED ORALLY EVERY 6 HRS, NOTES: NONE LATELY TAKING SINGULAIR 10 MG TABLET 1 TABLET IN THE EVENING ORALLY ONCE A DAY, NOTES: NONE LATELY TAKING NASACORT ALLERGY 24HR 55 MCG/ACT AEROSOL 1 PUFF IN EACH NOSTRIL NASALLY ONCE A DAY, NOTES: NONE LATELY TAKING MELATONIN 3 MG TABLET 1 TABLET AT BEDTIME NEEDED WITH FOOD ORALLY ONCE A DAY, NOTES: 08/17/18 TAKING NAPROXEN SODIUM 220 MG TABLET 2 TABLETS WITH FOOD OR MILK NEEDED ORALLY EVERY 12 HRS, NOTES: 08/17/18 TAKING EFFEXOR XR 37.5 MG CAPSULE EXTENDED RELEASE 24 HOUR 1 CAPSULE WITH FOOD ORALLY ONCE A DAY, NOTES: 08/17/18 TAKING TART BUCKNER ADVANCED - CAPSULE 1 CAP ORALLY DAILY, NOTES: 08/17/18 TAKING IBUPROFEN 600 MG TABLET 1 TABLET WITH FOOD OR MILK NEEDED ORALLY BID NEEDED, NOTES: NONE LATELY NOT-TAKING AUGMENTIN 875-125 MG TABLET 1 TABLET ORALLY EVERY 12 HRS MEDICATION LIST REVIEWED AND RECONCILED WITH THE PATIENT PAST MEDICAL HISTORY SYNCOPE ANXIETY WITH DEPRESSION GOUT NECK/SHOULDER PAIN MIGRAINES PINEAL GLAND CYST ALLERGIES METALS: RASH - ALLERGY SURGICAL HISTORY DENIES PAST SURGICAL HISTORY FAMILY HISTORY FATHER: , OF ?ANEURISM MOTHER: ALIVE, ALCOHOLISM, HEART MURMUR, KIDNEY [place] SIBLINGS: 2 HALF BROTHERS AND 1 HALF SISTER ON PATERNAL SIDE; , NO KNOWN MEDICAL PROBLEMS PATERNAL GRAND FATHER: , IN LATE 30S OR EARLY 40S FROM [place] SOCIAL HISTORY GENERAL: TOBACCO USE ARE YOU A:CURRENT SMOKER ARE YOU INTERESTED IN QUITTING?THINKING ABOUT QUITTING HAS TRIED CUTTING BACK PREVIOUS QUIT ATTEMPTS?YES, MORE THAN 6 MONTHS AGO. COUNSELED THE PATIENT ON SMOKING CESSATION, EDUCATION [id number]/12/2019 HOW MANY CIGARETTES A DAY DO YOU SMOKE?31 OR MORE HOW SOON AFTER YOU WAKE UP DO YOU SMOKE YOUR FIRST CIGARETTE?6-30 MIN HOW OFTEN DO YOU SMOKE CIGARETTES?EVERY DAY PATIENT COUNSELED ON THE DANGERS OF TOBACCO USE AND URGED TO QUIT:08/05/2018 SMOKING CESSATION INFORMATION GIVEN08/05/2018 LATEX QUESTIONNAIRE LATEX ALLERGY : HAVE YOU EVER DEVELOPED ANY TYPE OF REACTION AFTER HANDLING LATEX PRODUCTS SUCH RUBBER GLOVES, CONDOMS, DIAPHRAGMS, BALLOONS, SOCKS, OR UNDERWEAR?NO DATE ASKED : 08/05/2018 BMI CARE GOAL FOLLOW-UP ABOVE NORMAL BMI FOLLOW-UPWEIGHT MONITORING ALCOHOL SCREENING DID YOU HAVE A DRINK CONTAINING ALCOHOL IN THE PAST YEAR?YES HOW OFTEN DID YOU HAVE SIX OR MORE DRINKS ON ONE OCCASION IN THE PAST YEAR?NEVER (0 POINTS) HOW MANY DRINKS DID YOU HAVE ON A TYPICAL DAY WHEN YOU WERE DRINKING IN THE PAST YEAR?1 OR 2 (0 POINTS) HOW OFTEN DID YOU HAVE A DRINK CONTAINING ALCOHOL IN THE PAST YEAR?MONTHLY OR LESS (1 POINT) POINTS1 INTERPRETATIONNEGATIVE RECREATIONAL DRUG USE DRUG USE?NO CAFFEINE CAFFEINE USE?YES 1 POT COFFEE/ DAY 1-2 [place]W/ DAY SEXUAL HX HAD SEX IN THE LAST 12 MONTHS (VAGINAL, ORAL, OR ANAL)?YES WITHWOMEN ONLY PREVENTION STRATEGIES DISCUSSED:OTHER USE PROTECTION?NO HAVE YOU EVER HAD AN STD?NO HIV / HEP-C SCREENING HIV TEST OFFERED TO PATIENT:YES DATE OFFERED:12/23/2016 TEST ACCEPTED:YES ORIENTAL ORTHODOX ORIENTAL ORTHODOX NO DRUZE BELIEFS THAT WOULD IMPACT HEALTH CARE. LANGUAGE LANGUAGES SPOKEN:INDONESIAN EDUCATION LEVEL OF EDUCATION:NOT FINISHED COLLEGE LEARNING BARRIERS / SPECIAL NEEDS CHANGE FROM LAST VISIT?NO BARRIERS TO LEARNING?NO HEARING IMPAIRED?NO VISION IMPAIRED?YES COGNITIVELY IMPAIRED?NO :CORRECTIVE LENSES READINESS TO LEARN?YES LEARNING PREFERENCES?YES :BOOKLETS, HANDOUTS LEARNING CAPABILITIES PRESENT?YES EMOTIONAL BARRIERS?NO SPECIAL DEVICES?NO POLICE RADIO DISPATCHER NEEDED?NO DOMESTIC VIOLENCE DO YOU FEEL SAFE IN YOUR ENVIRONMENT?YES OCCUPATION: [employer], WILL BE WORKING FOR [employer] . DIET: REGULAR. EXERCISE: NO REGULAR EXERCISE. MARITAL STATUS: SINGLE. OTHERS AT HOME: 6 KIDS, GIRLFRIEND . PAIN CLINIC PFS, CLERGY, PUBLIC HEALTH REFERRALS HAS THE PATIENT BEEN EDUCATED REGARDING HIS/HER PLAN OF CARE?YES HAS THE PATIENT BEEN EDUCATED REGARDING PAIN, THE RISK FOR PAIN, THE IMPORTANCE OF EFFECTIVE PAIN MANAGEMENT, AND THE PAIN ASSESSMENT PROCESS?YES ADVANCE DIRECTIVE ADVANCE DIRECTIVE DISCUSSED WITH PATIENT:YES DECLINED HCP INFORMATION. REVIEWED WITH PATIENT 03/24/18 1022 JSREVIEWED WITH PATIENT 06/15/18 4846 JS. HOSPITALIZATION/MAJOR DIAGNOSTIC PROCEDURE VIRAL MENINGITIS AGE 15 REVIEW OF SYSTEMS REVIEWED BY: PROVIDER: . CONSTITUTIONAL: ANY CHANGE IN YOUR MEDICAL CONDITION? NO . CHILLS NO . FEVER NO . INFECTION: DO YOU HAVE NEW INFECTIONS? NO . DO YOU HAVE HISTORY OF MRSA? NO . MUSCULOSKELETAL: ANY NEW PATTERNS OF PAIN OR NUMBNESS? YES, FOOT NUMBNESS . GASTROENTEROLOGY: ANY NEW CHANGE IN BOWEL CONTROL? NO . GENITOURINARY: ANY NEW CHANGE IN BLADDER CONTROL? YES, DIFFICULTY URINATING X 1 MONTH, PT SEEING PCP FOR THIS . IS THERE A CHANCE YOU COULD BE ? NO . HEMATOLOGY/LYMPH: DO YOU TAKE ANY BLOOD THINNERS? (FOR EXAMPLE- COUMADIN, PLAVIX, AGGRENOX, PLATEL, PRADAXA, OR XARELTO) NO . WHEN WAS YOUR LAST DOSE? DATE: TIME: . NEUROLOGY: HAVE YOU FALLEN IN THE PAST 12 MONTHS? YES, PT STATES HE FALLS DAILY FROM LOSS OF BALANCE . ANY NEW EXTREMITY NUMBNESS OR WEAKNESS? YES, RIGHT LEG . CARDIOLOGY: DO YOU HAVE A PACEMAKER OR DEFIBRILLATOR? NO . RESPIRATORY: HAVE YOU BEEN SICK IN THE PAST WEEK? NO . FEVER NO . FLU LIKE SYMPTOMS? NO . COUGH NO . INTEGUMENTARY: DO YOU HAVE ANY RASHES OR OPEN SORES? NO . ALLERGIC/IMMUNO: ARE YOU ALLERGIC TO IV DYE? NO . ANY NEW ALLERGIES? NO . PSYCHIATRIC: DO YOU HAVE THOUGHTS OF HURTING YOURSELF OR SOMEONE ELSE? NO . ARE YOU ABUSED, NEGLECTED, OR IN AN UNSAFE ENVIRONMENT? NO . ENDOCRINOLOGY: ARE YOU DIABETIC? NO . OTHER: DO YOU NEED ANY PRESCRIPTIONS? NO . IF YES, PLEASE LIST: ____ . ANY NEW PROBLEMS WITH YOUR MEDICATIONS? NO . WHEN DID YOU LAST EAT? 08/17/18 1800 . WHEN DID YOU LAST DRINK? 08/18/18 0500 . WHAT DID YOU LAST DRINK? BLACK COFFEE . NAME OF PERSON DRIVING YOU HOME? FATHER . DO YOU HAVE ANY OTHER QUESTIONS OR CONCERNS YES, PT STATES HE FEELS LIKE BUGS ARE CRAWLING ON HIM AT NIGHT X 2 MOS, PT HAS TOLD PCP FOR THIS . VITAL SIGNS WT 285 LBS, HT 74 IN, BMI 36.59 INDEX, BP 139/96 MM HG, HR 92 /MIN, RR 20 /MIN, TEMP 98.5 F, OXYGEN SAT % 95%, NA INITIALS SC 12:44, REVIEWED BY: EM. ASSESSMENTS MYALGIA, OTHER SITE - M79.18 (PRIMARY) PROCEDURES PN TRIGGER POINT INJECTION WITH STEROIDS PRE PROCEDURE DIAGNOSIS 1. MYALGIA 2. PAIN AT BILATERAL NECK AREA AND BILATERAL SHOULDER AREA POST PROCEDURE DIAGNOSIS 1. MYALGIA 2. PAIN AT BILATERAL NECK AREA AND BILATERAL SHOULDER AREA PROCEDURE TRIGGER POINT INJECTION AT BILATERAL NECK AREA AND BILATERAL SHOULDER AREA SURGEON DR. CINDY ESPINOSA ENDLESS STEAMER TENDER NONE ANESTHESIA LOCAL PRE PROCEDURE NOTE THE PATIENT HAS A HISTORY OF CHRONIC PAIN AT THE RIGHT AND LEFT NECK AREA AND RIGHT AND LEFT SHOULDER AREA. I EVALUATE THE PATIENT AND REVIEWED THE CHART. THERE IS EVIDENCE OF BANDS OF TISSUE WITH RESTRICTION OF MOVEMENT AND PRESENCE OF TRIGGER POINT AT THE AFFECTED AREA. I WENT OVER THE RISKS, ALTERNATIVES, AND BENEFITS ASSOCIATED WITH THIS PROCEDURE. THE PATIENT WOULD LIKE TO PROCEED AND GIVE CONSENT TO PERFORMED THE PROCEDURE. THE PATIENT DENIES UNEXPLAINABLE WEIGHT LOSS, FEVER, CHILLS, OR NEW CHANGES IN URINARY OR BOWEL CONTROL DESCRIPTION OF PROCEDURE THE PATIENT WAS BROUGHT TO THE PROCEDURE ROOM AND PLACED IN THE SITTING POSITION. THE AREA WAS CLEANED WITH ALCOHOL. THE PROCEDURE WAS DONE USING ASEPTIC STERILE TECHNIQUE. I CHECKED LATERALITY AND THE LEVEL WHERE THE PROCEDURE WAS GOING TO BE PERFORMED WITH THE PATIENT AND THE SUPPORTING STAFF AT THE MOMENT OF THE TIME OUT IN THE PROCEDURE ROOM. USING A 25-GAUGE NEEDLE, TRIGGER POINTS WERE INJECTED AT THE RIGHT AND LEFT NECK AREA AND RIGHT AND LEFT SHOULDER AREA WITH A TOTAL OF 40 ML OF BUPIVACAINE 0.25% AND KENALOG 40 MG. THERE WAS NO EVIDENCE OF BLOOD, PARESTHESIA OR CEREBROSPINAL FLUID DURING THE PROCEDURE. THE PATIENT WAS SENT TO THE RECOVERY ROOM. THE PATIENT WAS MOVING THE EXTREMITIES AND DOING WELL. THERE WAS NO COMPLICATION DURING THE PROCEDURE POST PROCEDURE NOTE THE PATIENT WILL BE SEEN IN A FOLLOW UP IN THE NEXT FEW WEEKS. INSTRUCTIONS WERE GIVEN, QUESTIONS WERE ANSWERED, AND THE PATIENT EXPRESSED UNDERSTANDING AND AGREES WITH THE PLAN. I, KANDY HARPER, DOCUMENTED THE ABOVE INFORMATION ACTING A SCRIBE FOR DR. ESPINOSA. I HAVE REVIEWED THE ABOVE DOCUMENT, WRITTEN BY KANDY CRYSTAL AND I VERIFY THAT IT IS ACCURATE. PROCEDURE CODES 48753 INJECT TRIGGER POINTS 3/> DISPOSITION & COMMUNICATION FOLLOW UP 3 WEEKS ELECTRONICALLY SIGNED BY CINDY ESPINOSA MD, MD ON 08/31/2018 AT 06:31 PM EDT DISCLAIMER : THIS IS A VISIT SUMMARY EXTRACTED FROM THE [employer] CHART. IT IS NOT A COPY OF THE [employer] PROGRESS NOTE. HEATHER
== END ==
LOC: M PAIN 12:00
PROVIDERS: ATTEND Anesthesiology
DX: M79.18 Myalgia, other site (principal); F41.9 Anxiety disorder, unspecified; F32.9 Major depressive disorder, single episode, unspecified; M10.9 Gout, unspecified; M54.2 Cervicalgia; G43.909 Migraine, unspecified, not intractable, without status migrainosus; F17.210 Nicotine dependence, cigarettes, uncomplicated; Z79.899 Other long term (current) drug therapy; Z91.048 Other nonmedicinal substance allergy status
CPT/HCPCS: 20553; J3301

== ENCOUNTER 2018-09-18 13:51 | Emergency (ER) | payer OTHER ==
[~2018-09-18] VITALS: Ht 190.5 cm; Wt 125.0 kg
[~2018-09-18 13:51] MED LIST changes: -BACL10TA2; -GABA-843; -LISI10TA4; -VENL75CA47
[2018-09-18 14:01] VITALS: BP 142/101
[2018-09-18] MEDS ORDERED: LISI10TA4 (14:06)
[2018-09-18] MEDS ORDERED: BACL10TA2 (14:06)
[2018-09-18] MEDS ORDERED: VENL75CA47 (14:06)
[2018-09-18] MEDS ORDERED: GABA-843 (14:06)
== END 2018-09-18 15:04 | disposition left against medical advice (07) ==
LOC: M ED 13:51
DX: Z53.21 Procedure and treatment not carried out due to patient leaving prior to being seen by health care provider (principal)

== ENCOUNTER → 2018-09-18 | Outpatient (CLI) | payer OTHER ==
[~2018-09-18] MED LIST changes: +BACL10TA2; -BUPIVACAINE HCL 0.25% 10 ML VIAL As Ordered ONE; -BUPIVACAINE HCL 0.25% 30 ML VIAL As Ordered ONE; +GABA-843; +HYDR-3715 PO; +LISI10TA4; -NORCOTAB PO; -TRIAMCINOLONE ACETONIDE SUSP 40 MG/ML VIAL (J3301) As Ordered ONE; +VENL75CA47; -diazePAM 5 MG TAB As Ordered ONE; -oxyCODONE 5MG TAB As Ordered ONE
--- NOTE | 2018-09-18 23:04 | ECWPNPC ---
PATIENT NAME: ROBBY GATES : 1980 GENDER: MALE VISIT DATE: 09/18/2018 DISCHARGE DATE: 09/18/18914 VISIT LOCKED DATE TIME: PHYSICIAN: BHAVIK QUACH RESOURCE: BHAVIK QUACH REASON FOR APPOINTMENT 1. INCREASED PAIN PER LB HISTORY OF PRESENT ILLNESS HISTORY OF PRESENT ILLNESS: 38 Y/O MALE BEING SEEN ON AN URGENT BASIS FOR EVALUATION OF SEVERE ONSET OF NECK,HEAD AND NEW ONSET OF SEVERE LEFT ARM PAIN ,WEAKNESS AND NUMBNESS.LEFT ARM BEGAN 10 DAYS AGO.DENIES INJURY.PATIENT IS IN SEVERE DISCOMFORT.RATING PAIN VAS 8/10.HAD TPI NECK /TRAPEZIUS BILATERALLY ON 08/18/18.REPORTS MARKED REDUCTION IN HEADACHE AND PAIN FOR ONE MONTH POST PROCEDURE.ALSO ATTENDING PT AND FINDS THIS EXTREMELY HELPFUL AT REDUCING PAIN.HAS NEUROLOGY EVALUATION NEXT WEEK IN [facility] [place].HISTORY OF CHRONIC VERTIGO AND HEADACHES AND IS HAVING A FLARE UP OF THESE SYMPTOMS TODAY.VERY PHOTO SENSITIVE.DUE TO NEW ONSET OF SEVERE LEFT ARM PAIN AND NUMBNESS YAHAIRA RECOMMENDED ER EVALUATION TODAY.HE IS AGREEABLE ONLY TO SEE URGENT CARE. PAIN THE PATIENT DESCRIBES THE PAIN... FALL RISK SCREENING: SCREENING :NO FALLS REPORTED IN THE LAST YEAR CURRENT MEDICATIONS TAKING IBU-200 200 MG TABLET 1 TABLET WITH FOOD OR MILK NEEDED ORALLY EVERY 6 HRS TAKING SINGULAIR 10 MG TABLET 1 TABLET IN THE EVENING ORALLY ONCE A DAY TAKING MELATONIN 3 MG TABLET 1 TABLET AT BEDTIME NEEDED WITH FOOD ORALLY ONCE A DAY TAKING NAPROXEN SODIUM 220 MG TABLET 2 TABLETS WITH FOOD OR MILK NEEDED ORALLY EVERY 12 HRS TAKING TART BUCKNER ADVANCED - CAPSULE 1 CAP ORALLY DAILY TAKING LISINOPRIL 10 MG TABLET 1 TABLET ORALLY ONCE A DAY TAKING EFFEXOR XR 75 MG CAPSULE EXTENDED RELEASE 24 HOUR 1 CAPSULE WITH FOOD ORALLY ONCE A DAY TAKING NASACORT ALLERGY 24HR 55 MCG/ACT AEROSOL 1 PUFF IN EACH NOSTRIL NASALLY ONCE A DAY, NOTES: NONE LATELY NOT-TAKING CIPROFLOXACIN HCL 500 MG TABLET 1 TABLET ORALLY EVERY 12 HRS NOT-TAKING IBUPROFEN 600 MG TABLET 1 TABLET WITH FOOD OR MILK NEEDED ORALLY BID NEEDED, NOTES: NONE LATELY NOT-TAKING AUGMENTIN 875-125 MG TABLET 1 TABLET ORALLY EVERY 12 HRS MEDICATION LIST REVIEWED AND RECONCILED WITH THE PATIENT PAST MEDICAL HISTORY SYNCOPE ANXIETY WITH DEPRESSION GOUT NECK/SHOULDER PAIN MIGRAINES PINEAL GLAND CYST ALLERGIES METALS: RASH - ALLERGY SURGICAL HISTORY DENIES PAST SURGICAL HISTORY FAMILY HISTORY FATHER: , OF ?ANEURISM MOTHER: ALIVE, ALCOHOLISM, HEART MURMUR, KIDNEY [place] SIBLINGS: 2 HALF BROTHERS AND 1 HALF SISTER ON PATERNAL SIDE; , NO KNOWN MEDICAL PROBLEMS PATERNAL GRAND FATHER: , IN LATE 30S OR EARLY 40S FROM [place] SOCIAL HISTORY GENERAL: TOBACCO USE ARE YOU A:CURRENT SMOKER ARE YOU INTERESTED IN QUITTING?THINKING ABOUT QUITTING HAS TRIED CUTTING BACK PREVIOUS QUIT ATTEMPTS?YES, MORE THAN 6 MONTHS AGO. COUNSELED THE PATIENT ON SMOKING CESSATION, EDUCATION [id number]/12/2019 HOW MANY CIGARETTES A DAY DO YOU SMOKE?31 OR MORE HOW SOON AFTER YOU WAKE UP DO YOU SMOKE YOUR FIRST CIGARETTE?6-30 MIN HOW OFTEN DO YOU SMOKE CIGARETTES?EVERY DAY PATIENT COUNSELED ON THE DANGERS OF TOBACCO USE AND URGED TO QUIT:08/05/2018 SMOKING CESSATION INFORMATION GIVEN08/05/2018 LATEX QUESTIONNAIRE LATEX ALLERGY : HAVE YOU EVER DEVELOPED ANY TYPE OF REACTION AFTER HANDLING LATEX PRODUCTS SUCH RUBBER GLOVES, CONDOMS, DIAPHRAGMS, BALLOONS, SOCKS, OR UNDERWEAR?NO DATE ASKED : 08/05/2018 BMI CARE GOAL FOLLOW-UP ABOVE NORMAL BMI FOLLOW-UPWEIGHT MONITORING ALCOHOL SCREENING DID YOU HAVE A DRINK CONTAINING ALCOHOL IN THE PAST YEAR?YES HOW OFTEN DID YOU HAVE SIX OR MORE DRINKS ON ONE OCCASION IN THE PAST YEAR?NEVER (0 POINTS) HOW MANY DRINKS DID YOU HAVE ON A TYPICAL DAY WHEN YOU WERE DRINKING IN THE PAST YEAR?1 OR 2 (0 POINTS) HOW OFTEN DID YOU HAVE A DRINK CONTAINING ALCOHOL IN THE PAST YEAR?MONTHLY OR LESS (1 POINT) POINTS1 INTERPRETATIONNEGATIVE RECREATIONAL DRUG USE DRUG USE?NO CAFFEINE CAFFEINE USE?YES 1 POT COFFEE/ DAY 1-2 [place] DEW/ DAY SEXUAL HX HAD SEX IN THE LAST 12 MONTHS (VAGINAL, ORAL, OR ANAL)?YES WITHWOMEN ONLY PREVENTION STRATEGIES DISCUSSED:OTHER USE PROTECTION?NO HAVE YOU EVER HAD AN STD?NO HIV / HEP-C SCREENING HIV TEST OFFERED TO PATIENT:YES DATE OFFERED:12/23/2016 TEST ACCEPTED:YES UATSDIN UATSDIN NO BUDDHISM BELIEFS THAT WOULD IMPACT HEALTH CARE. LANGUAGE LANGUAGES SPOKEN:ANGUILLAN EDUCATION LEVEL OF EDUCATION:NOT FINISHED COLLEGE LEARNING BARRIERS / SPECIAL NEEDS CHANGE FROM LAST VISIT?NO BARRIERS TO LEARNING?NO HEARING IMPAIRED?NO VISION IMPAIRED?YES COGNITIVELY IMPAIRED?NO :CORRECTIVE LENSES READINESS TO LEARN?YES LEARNING PREFERENCES?YES :BOOKLETS, HANDOUTS LEARNING CAPABILITIES PRESENT?YES EMOTIONAL BARRIERS?NO SPECIAL DEVICES?NO STONER HAND NEEDED?NO DOMESTIC VIOLENCE DO YOU FEEL SAFE IN YOUR ENVIRONMENT?YES OCCUPATION: [employer], WILL BE WORKING FOR [employer] . DIET: REGULAR. EXERCISE: NO REGULAR EXERCISE. MARITAL STATUS: SINGLE. OTHERS AT HOME: 6 KIDS, GIRLFRIEND . PAIN CLINIC PFS, CLERGY, PUBLIC HEALTH REFERRALS HAS THE PATIENT BEEN EDUCATED REGARDING HIS/HER PLAN OF CARE?YES HAS THE PATIENT BEEN EDUCATED REGARDING PAIN, THE RISK FOR PAIN, THE IMPORTANCE OF EFFECTIVE PAIN MANAGEMENT, AND THE PAIN ASSESSMENT PROCESS?YES ADVANCE DIRECTIVE ADVANCE DIRECTIVE DISCUSSED WITH PATIENT:YES DECLINED HCP INFORMATION. REVIEWED WITH PATIENT 03/24/18 1022 JSREVIEWED WITH PATIENT 06/15/18 0924 JS. HOSPITALIZATION/MAJOR DIAGNOSTIC PROCEDURE VIRAL MENINGITIS AGE 15 REVIEW OF SYSTEMS REVIEWED BY: PROVIDER: BHAVIK SHORE . CONSTITUTIONAL: ANY CHANGE IN YOUR MEDICAL CONDITION? NO, TODAY PT C/O DIZZINESS, NAUSEA, HEADACHES HAVE IMPROVED, SPASMING TO BACK MUSCLES, NUMBNESS TO LEFT SIDE AND SEVERE LEFT SHOULDER PAIN . CHILLS NO . FEVER NO . INFECTION: DO YOU HAVE NEW INFECTIONS? NO . DO YOU HAVE HISTORY OF MRSA? NO . MUSCULOSKELETAL: ANY NEW PATTERNS OF PAIN OR NUMBNESS? YES, NUMBNESS LEFT HAND X 1 WEEK . GASTROENTEROLOGY: ANY NEW CHANGE IN BOWEL CONTROL? NO . GENITOURINARY: ANY NEW CHANGE IN BLADDER CONTROL? YES, DIFFICULTY IN STARTING TO URINATE X 2 WEEKS, PT SEES PCP FOR THIS WORK UP FOR PROSTATE BEING DONE . IS THERE A CHANCE YOU COULD BE ? NO . HEMATOLOGY/LYMPH: DO YOU TAKE ANY BLOOD THINNERS? (FOR EXAMPLE- COUMADIN, PLAVIX, AGGRENOX, PLATEL, PRADAXA, OR XARELTO) NO . WHEN WAS YOUR LAST DOSE? DATE: TIME: . NEUROLOGY: HAVE YOU FALLEN IN THE PAST 12 MONTHS? YES, FELL THIS AM FROM PAIN WEAKNESS AND LOSS OF BALANCE. PT STATES HE FALLS EVERY DAY . ANY NEW EXTREMITY NUMBNESS OR WEAKNESS? YES, LEFT ARM PAIN AND LEFT HAND WEAKNESS . CARDIOLOGY: DO YOU HAVE A PACEMAKER OR DEFIBRILLATOR? NO . RESPIRATORY: HAVE YOU BEEN SICK IN THE PAST WEEK? NO . FEVER NO . FLU LIKE SYMPTOMS? NO . COUGH NO . INTEGUMENTARY: DO YOU HAVE ANY RASHES OR OPEN SORES? NO . ALLERGIC/IMMUNO: ARE YOU ALLERGIC TO IV DYE? NO . ANY NEW ALLERGIES? NO . PSYCHIATRIC: DO YOU HAVE THOUGHTS OF HURTING YOURSELF OR SOMEONE ELSE? NO . ARE YOU ABUSED, NEGLECTED, OR IN AN UNSAFE ENVIRONMENT? NO . ENDOCRINOLOGY: ARE YOU DIABETIC? NO . OTHER: DO YOU NEED ANY PRESCRIPTIONS? NO . IF YES, PLEASE LIST: ____ . ANY NEW PROBLEMS WITH YOUR MEDICATIONS? NO . WHEN DID YOU LAST EAT? ____ . WHEN DID YOU LAST DRINK? ____ . WHAT DID YOU LAST DRINK? ____ . NAME OF PERSON DRIVING YOU HOME? ____ . DO YOU HAVE ANY OTHER QUESTIONS OR CONCERNS YES, LEFT SHOULDER AND BACK PAIN SEVERE . VITAL SIGNS WT 283.6 LBS, HT 74 IN, BMI 36.41 INDEX, BP 116/66 MM HG, HR 71 /MIN, RR 16 /MIN, TEMP 98.5 F, OXYGEN SAT % 96, REVIEWED BY: RUBIO. EXAMINATION GENERAL EXAMINATION: GENERAL APPEARANCE: AWAKE,ALERT ,PLEAASANT . PSYCH AFFECT NORMAL . LUNGS: LUNG KENT ARE CLEAR TO AUSCULTATION BILATERALLY. GOOD MOVEMENT OF AIR . HEART: S1, S2 IN A REGULAR RATE AND RHYTHM. NO SIGNIFICANT MURMURS, RUBS OR GALLOPS NOTED . MUSCULOSKELETAL: MUSCLE STRENGTH WEAK OVER LEFT ARM. CERVICAL TRIGGER POINTS: CERVICAL AND TRAPEZIUS BILAT..PAIN IS AGGREVATED WITH ROJM NECK . EXTREMITIES:LIMITED RANGE OF MOTION LEFT ARM DUE TO PAIN.. NEUROLOGIC EXAM: CN'S II-XII GROSSLY INTACT. DIAGNOSTIC TESTS REVIEWED MRI C SPINE-01/25/18. ASSESSMENTS CERVICAL DISC DISPLACEMENT - M50.20 CERVICAL RADICULOPATHY - M54.12 TREATMENT OTHERS START GABAPENTIN CAPSULE, 300 MG, 1 TO 2 CAPSULES, ORALLY, Q8H, 30 DAY(S), 180, REFILLS 2 START BACLOFEN TABLET, 10 MG, 1 TABLET WITH FOOD OR MILK, ORALLY, THREE TIMES A DAY, 30 DAY(S), 90, REFILLS 2 PROCEDURE CODES FA211 ESTABILISHED PATIENT [facility] CHARGE DISPOSITION & COMMUNICATION FOLLOW UP 2 WEEKS W ME 30 MINUTE ELECTRONICALLY SIGNED BY MONE DOHERTY ON 09/18/2018 AT 01:25 PM EDT DISCLAIMER : THIS IS A VISIT SUMMARY EXTRACTED FROM THE [email or web address] CHART. IT IS NOT A COPY OF THE [email or web address] PROGRESS NOTE. MTDD
== END ==
LOC: M PAIN 08:30
PROVIDERS: ATTEND Nurse Practitioner Family
DX: M50.20 Other cervical disc displacement, unspecified cervical region (principal); M54.12 Radiculopathy, cervical region; Z86.59 Personal history of other mental and behavioral disorders; Z86.79 Personal history of other diseases of the circulatory system; G43.909 Migraine, unspecified, not intractable, without status migrainosus; F17.210 Nicotine dependence, cigarettes, uncomplicated; Z91.048 Other nonmedicinal substance allergy status; Z91.81 History of falling; Z79.899 Other long term (current) drug therapy

== ENCOUNTER → 2018-09-21 | Outpatient (REF) | payer OTHER ==
[~2018-09-21] MED LIST changes: +BACL10TA2; +GABA-843; +LISI10TA4; +VENL75CA47
[2018-09-21 16:49] LABS: BLOOD UREA NITROGEN 13 MG/DL (7-18); C REACTIVE PROTEIN QUANTITATIV 0.61 MG/DL (0.00-0.30); CALCIUM LEVEL 9.7 MG/DL (8.5-10.1); CARBON DIOXIDE LEVEL 26 MEQ/L (21-32); CHLORIDE LEVEL 110 MEQ/L (98-107); CREATININE FOR GFR 0.86 MG/DL (0.70-1.30); GLOMERULAR FILTRATION RATE > 60.0 (>60); GLUCOSE, FASTING 72 MG/DL (70-100); POTASSIUM SERUM 4.1 MEQ/L (3.5-5.1); SODIUM LEVEL 141 MEQ/L (136-145); URIC ACID 6.1 MG/DL (3.5-7.2)
[2018-09-21 17:39] LABS: HIV 1&2 SCREEN CENTAUR NEGATIVE (NEGATIVE)
[2018-09-23 08:06] LABS: HSV TYPE I IgG SPECIFIC 3.75 index (0.00-0.90); HSV TYPE II IgG SPECIFIC <0.91 index (0.00-0.90)
== END ==
LOC: M SFHCPLAZ 12:53
PROVIDERS: ATTEND Family Medicine
DX: M25.551 Pain in right hip (principal); N41.1 Chronic prostatitis; I10 Essential (primary) hypertension

== ENCOUNTER → 2018-09-25 | Outpatient (REF) | payer OTHER ==
[2018-09-25 13:15] LABS: CHLAMYDIA DNA AMPLIFICATION NEGATIVE (NEGATIVE); GC DNA AMPLIFICATION NEGATIVE (NEGATIVE)
[2018-09-25 13:29] LABS: MALB URINE SIEMENS 11.2 MG/L; MAU/CREAT RATIO 6.7 MCG/MG (0.0-30.0)
== END ==
LOC: M LAB REF 11:17
PROVIDERS: ATTEND Family Medicine
DX: I10 Essential (primary) hypertension (principal); N41.1 Chronic prostatitis; M25.551 Pain in right hip

== ENCOUNTER → 2018-09-30 | Outpatient (CLI) | payer OTHER ==
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
== END ==
LOC: M PAIN 11:15
PROVIDERS: ATTEND Nurse Practitioner Family
DX: M50.10 Cervical disc disorder with radiculopathy, unspecified cervical region (principal); M79.18 Myalgia, other site; Z86.59 Personal history of other mental and behavioral disorders; Z86.39 Personal history of other endocrine, nutritional and metabolic disease; G43.909 Migraine, unspecified, not intractable, without status migrainosus; F17.210 Nicotine dependence, cigarettes, uncomplicated; Z91.048 Other nonmedicinal substance allergy status; Z91.81 History of falling; Z79.899 Other long term (current) drug therapy

== ENCOUNTER → 2018-10-08 | Outpatient (CLI) | payer OTHER ==
[2018-10-11 00:06] LABS: ANTINUCLEAR ANTIBODIES DIRECT Negative (Negative); Lyme Disease IgG/IgM Antibodie <0.91 ISR (0.00-0.90); Lyme Disease IgM Ab Quantitati <0.80 index (0.00-0.79)
== END ==
LOC: M LAB 17:12
PROVIDERS: ATTEND Psychiatry & Neurology Neurology
DX: G44.89 Other headache syndrome (principal)

== ENCOUNTER → 2018-10-08 | Outpatient (CLI) | payer OTHER ==
[~2018-10-08] MED LIST changes: +PROHANCE 279.3MG/ML 15ML VIAL (A9576) As Ordered ONE; +PROHANCE 279.3MG/ML 5ML VIAL (A9576) As Ordered ONE
--- NOTE | 2018-10-08 17:06 | REP ---
MR BRAIN WITHOUT AND WITH CONTRAST: HISTORY: Pineal cyst. CONTRAST: ProHance 20 mL COMPARISON: 04/16/2017. There are no areas of abnormal signal intensity in the brain parenchyma. There is no intraparenchymal hemorrhage, infarct, mass or midline shift. There is no abnormal enhancement. 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 This is an incidental finding. The ventricular system is normal in appearance. There is no extracerebral collection. Minimal mucosal thickening is present in the left maxillary sinus. IMPRESSION: There is no intracranial lesion. Electronically Signed by Emiliano Cintron MD 10/08/2018 05:09 P
== END ==
LOC: M RAD 15:55
PROVIDERS: ATTEND Family Medicine
DX: E34.8 Other specified endocrine disorders (principal)
CPT/HCPCS: 70553; A9576

== ENCOUNTER → 2018-11-11 | Outpatient (CLI) | payer OTHER ==
[~2018-11-11] MED LIST changes: +BUPIVACAINE HCL 0.25% 10 ML VIAL As Ordered ONE; +BUPIVACAINE HCL 0.25% 30 ML VIAL As Ordered ONE; -PROHANCE 279.3MG/ML 15ML VIAL (A9576) As Ordered ONE; -PROHANCE 279.3MG/ML 5ML VIAL (A9576) As Ordered ONE; +TRIAMCINOLONE ACETONIDE SUSP 40 MG/ML VIAL (J3301) As Ordered ONE; +diazePAM 5 MG TAB As Ordered ONE; +oxyCODONE 5MG TAB As Ordered ONE
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
== END ==
LOC: M PAIN 10:00
PROVIDERS: ATTEND Anesthesiology
DX: M79.18 Myalgia, other site (principal); F34.1 Dysthymic disorder; M10.9 Gout, unspecified; M54.2 Cervicalgia; G43.909 Migraine, unspecified, not intractable, without status migrainosus; Z79.899 Other long term (current) drug therapy; F17.210 Nicotine dependence, cigarettes, uncomplicated; Z91.018 Allergy to other foods
CPT/HCPCS: 20553; J3301

== ENCOUNTER 2018-12-02 18:42 | Emergency (ER) | payer OTHER ==
[~2018-12-02] VITALS: Ht 190.5 cm; Wt 122.9 kg
[~2018-12-02 18:42] MED LIST changes: -BUPIVACAINE HCL 0.25% 10 ML VIAL As Ordered ONE; -BUPIVACAINE HCL 0.25% 30 ML VIAL As Ordered ONE; -TRIAMCINOLONE ACETONIDE SUSP 40 MG/ML VIAL (J3301) As Ordered ONE; -diazePAM 5 MG TAB As Ordered ONE; -oxyCODONE 5MG TAB As Ordered ONE
[2018-12-02 18:43] VITALS: BP 133/80
[2018-12-02] MEDS ORDERED: MONT10TA2 (18:53)
[2018-12-02] MEDS ORDERED: VENL150C43 (18:53)
[2018-12-02] MEDS ORDERED: GABA600T4 (18:53)
== END 2018-12-02 20:12 | disposition left against medical advice (07) ==
LOC: M ED 18:42
DX: G40.909 Epilepsy, unspecified, not intractable, without status epilepticus (principal); G89.29 Other chronic pain; M54.2 Cervicalgia; Z72.0 Tobacco use; Z79.899 Other long term (current) drug therapy; Z91.89 Other specified personal risk factors, not elsewhere classified; Z88.8 Allergy status to other drugs, medicaments and biological substances

== ENCOUNTER → 2019-01-19 | Outpatient (CLI) | payer OTHER ==
[~2019-01-19] MED LIST changes: +GABA600T4; +MONT10TA2; +VENL150C43
--- NOTE | 2019-01-21 00:44 | ECWPNPC ---
PATIENT NAME: ROBBY GATES : 1980 GENDER: MALE VISIT DATE: 01/19/2019 DISCHARGE DATE: 01/19/19 1225 VISIT LOCKED DATE TIME: PHYSICIAN: AGATHA RENEE RESOURCE: AGATHA RENEE REASON FOR APPOINTMENT 1. POST PROC HISTORY OF PRESENT ILLNESS HISTORY OF PRESENT ILLNESS: PAIN THE PATIENT DESCRIBES THE PAIN... 39 YEAR OLD MALE IN FOR TPI FOLLOW UP. HE FEELS THE PROCEDURE WORKED WELL AND LASTED OVER A MONTH. HE RATES HIS PAIN AT A 6/10 CURRENTLY AND DESCRIBES IT ACHING, BURNING, AND SORE. HE WOULD LIKE TO DISCUSS A REPEAT TPI. FALL RISK SCREENING: SCREENING :NO FALLS REPORTED IN THE LAST YEAR CURRENT MEDICATIONS TAKING IBU-200 200 MG TABLET 1 TABLET WITH FOOD OR MILK NEEDED ORALLY EVERY 6 HRS TAKING NAPROXEN SODIUM 220 MG TABLET 2 TABLETS WITH FOOD OR MILK NEEDED ORALLY EVERY 12 HRS TAKING TART BUCKNER ADVANCED - CAPSULE 1 CAP ORALLY DAILY TAKING NASACORT ALLERGY 24HR 55 MCG/ACT AEROSOL 1 PUFF IN EACH NOSTRIL NASALLY ONCE A DAY TAKING SINGULAIR 10 MG TABLET 1 TABLET IN THE EVENING ORALLY ONCE A DAY TAKING MAY HAVE - - PLEASE DISPENSE FOUR-POST CANE DAILY WITH AMBULATION TAKING VITAMIN D3 5000 UNIT CAPSULE DIRECTED ORALLY TAKING GABAPENTIN 600 MG TABLET 1 TABLET ORALLY THREE TIMES DAILY TAKING BACLOFEN 10 MG TABLET 0.5 TABLET WITH FOOD OR MILK ORALLY THREE TIMES A DAY TAKING VENLAFAXINE HCL ER 225 MG TABLET EXTENDED RELEASE 24 HOUR 1 TABLET WITH FOOD ORALLY ONCE A DAY TAKING DIVALPROEX SODIUM 250 MG TABLET DELAYED RELEASE 1 TABLET ORALLY TWICE A DAY DISCONTINUED MELATONIN 5 MG TABLET 1 TABLET AT BEDTIME NEEDED WITH FOOD ORALLY ONCE A DAY DISCONTINUED EFFEXOR XR 150 MG CAPSULE EXTENDED RELEASE 24 HOUR 1 CAPSULE WITH FOOD ORALLY ONCE A DAY DISCONTINUED DIAZEPAM 5 MG TABLET 1 TABLET NEEDED ORALLY TWICE DAILY NEEDED FOR TRAVEL ANXIETY. MDD 2 DISCONTINUED VENLAFAXINE HCL ER 75 MG CAPSULE EXTENDED RELEASE 24 HOUR 1 CAPSULE WITH FOOD ORALLY ONCE A DAY. TAKE WITH 150 MG CAP FOR TOTAL OF 225 MG DAILY MEDICATION LIST REVIEWED AND RECONCILED WITH THE PATIENT PAST MEDICAL HISTORY SYNCOPE; POSSIBLY ORTHOSTATIC HYPOTENSION; RESOLVED OFF OF BP MEDS ANXIETY WITH DEPRESSION GOUT NECK/SHOULDER PAIN MIGRAINES PINEAL GLAND CYST ALLERGIES METALS: RASH - ALLERGY SURGICAL HISTORY DENIES PAST SURGICAL HISTORY FAMILY HISTORY FATHER: , OF ?ANEURISM MOTHER: ALIVE, ALCOHOLISM, HEART MURMUR, KIDNEY [place] SIBLINGS: 2 HALF BROTHERS AND 1 HALF SISTER ON PATERNAL SIDE; , NO KNOWN MEDICAL PROBLEMS PATERNAL GRAND FATHER: , IN LATE 30S OR EARLY 40S FROM [place] SOCIAL HISTORY GENERAL: TOBACCO USE ARE YOU A:CURRENT SMOKER ARE YOU INTERESTED IN QUITTING?THINKING ABOUT QUITTING HAS TRIED CUTTING BACK PREVIOUS QUIT ATTEMPTS?YES, MORE THAN 6 MONTHS AGO. COUNSELED THE PATIENT ON SMOKING CESSATION, EDUCATION BXGYAGES87/13/2019 HOW MANY CIGARETTES A DAY DO YOU SMOKE?31 OR MORE HOW SOON AFTER YOU WAKE UP DO YOU SMOKE YOUR FIRST CIGARETTE?6-30 MIN HOW OFTEN DO YOU SMOKE CIGARETTES?EVERY DAY PATIENT COUNSELED ON THE DANGERS OF TOBACCO USE AND URGED TO QUIT:11/11/2018 SMOKING CESSATION INFORMATION GIVEN08/05/2018 HIV / HEP-C SCREENING HIV TEST OFFERED TO PATIENT:YES DATE OFFERED:12/23/2016 TEST ACCEPTED:YES OTHERS AT HOME: 6 KIDS, GIRLFRIEND. EDUCATION LEVEL OF EDUCATION:NOT FINISHED COLLEGE DIET: REGULAR. LANGUAGE LANGUAGES SPOKEN:[place] DOMESTIC VIOLENCE DO YOU FEEL SAFE IN YOUR ENVIRONMENT?YES BMI CARE GOAL FOLLOW-UP ABOVE NORMAL BMI FOLLOW-UPWEIGHT MONITORING RECREATIONAL DRUG USE DRUG USE?NO EXERCISE: NO REGULAR EXERCISE. LEARNING BARRIERS / SPECIAL NEEDS CHANGE FROM LAST VISIT?NO BARRIERS TO LEARNING?NO HEARING IMPAIRED?NO VISION IMPAIRED?YES COGNITIVELY IMPAIRED?NO :CORRECTIVE LENSES READINESS TO LEARN?YES LEARNING PREFERENCES?YES :BOOKLETS, HANDOUTS LEARNING CAPABILITIES PRESENT?YES EMOTIONAL BARRIERS?NO SPECIAL DEVICES?NO PRESSER COTTON GINNING NEEDED?NO PAIN CLINIC PFS, CLERGY, PUBLIC HEALTH REFERRALS WAS THE PROVIDER NOTIFIED OF ANY PERTINENT INFO?YES HAS THE PATIENT BEEN EDUCATED REGARDING HIS/HER PLAN OF CARE?YES HAS THE PATIENT BEEN EDUCATED REGARDING PAIN, THE RISK FOR PAIN, THE IMPORTANCE OF EFFECTIVE PAIN MANAGEMENT, AND THE PAIN ASSESSMENT PROCESS?YES LATEX QUESTIONNAIRE LATEX ALLERGY : HAVE YOU EVER DEVELOPED ANY TYPE OF REACTION AFTER HANDLING LATEX PRODUCTS SUCH RUBBER GLOVES, CONDOMS, DIAPHRAGMS, BALLOONS, SOCKS, OR UNDERWEAR?NO DATE ASKED : 09/30/2018 CAFFEINE CAFFEINE USE?YES 1 POT COFFEE/ DAY 1-2 [place]/ DAY ADVANCE DIRECTIVE ADVANCE DIRECTIVE DISCUSSED WITH PATIENT:YES DECLINED HCP INFORMATION AND DECLINES ASSISTANCE WITH PAPERWORK. NONDENOMINATIONAL NONDENOMINATIONAL NO LATTER DAY BELIEFS THAT WOULD IMPACT HEALTH CARE. MARITAL STATUS: SINGLE. ALCOHOL SCREENING DID YOU HAVE A DRINK CONTAINING ALCOHOL IN THE PAST YEAR?YES HOW OFTEN DID YOU HAVE SIX OR MORE DRINKS ON ONE OCCASION IN THE PAST YEAR?NEVER (0 POINTS) HOW MANY DRINKS DID YOU HAVE ON A TYPICAL DAY WHEN YOU WERE DRINKING IN THE PAST YEAR?1 OR 2 (0 POINTS) HOW OFTEN DID YOU HAVE A DRINK CONTAINING ALCOHOL IN THE PAST YEAR?MONTHLY OR LESS (1 POINT) POINTS1 INTERPRETATIONNEGATIVE OCCUPATION: [employer], WILL BE WORKING FOR [employer]. SEXUAL HX HAD SEX IN THE LAST 12 MONTHS (VAGINAL, ORAL, OR ANAL)?YES WITHWOMEN ONLY PREVENTION STRATEGIES DISCUSSED:OTHER USE PROTECTION?NO HAVE YOU EVER HAD AN STD?NO REVIEWED WITH PATIENT 03/24/18 1022 JSREVIEWED WITH PATIENT 06/15/18 0924 JS. HOSPITALIZATION/MAJOR DIAGNOSTIC PROCEDURE VIRAL MENINGITIS AGE 15 REVIEW OF SYSTEMS REVIEWED BY: PROVIDER: [employer] . CONSTITUTIONAL: ANY CHANGE IN YOUR MEDICAL CONDITION? NO . CHILLS NO . FEVER NO . INFECTION: DO YOU HAVE NEW INFECTIONS? YES, STAPH AT BUTTOCKS, RESOLVING ON ABX . DO YOU HAVE HISTORY OF MRSA? NO . MUSCULOSKELETAL: ANY NEW PATTERNS OF PAIN OR NUMBNESS? NO . GASTROENTEROLOGY: ANY NEW CHANGE IN BOWEL CONTROL? NO . GENITOURINARY: ANY NEW CHANGE IN BLADDER CONTROL? YESHARD TO URINATE W/O BACLOFEN . IS THERE A CHANCE YOU COULD BE ? NO . HEMATOLOGY/LYMPH: DO YOU TAKE ANY BLOOD THINNERS? (FOR EXAMPLE- COUMADIN, PLAVIX, AGGRENOX, PLATEL, PRADAXA, OR XARELTO) NO . WHEN WAS YOUR LAST DOSE? DATE: TIME: . NEUROLOGY: HAVE YOU FALLEN IN THE PAST 12 MONTHS? YES, FELL YESTERDAY FROM LOSS OF BALACE AND WEAKNESS . ANY NEW EXTREMITY NUMBNESS OR WEAKNESS? NO . CARDIOLOGY: DO YOU HAVE A PACEMAKER OR DEFIBRILLATOR? NO . RESPIRATORY: HAVE YOU BEEN SICK IN THE PAST WEEK? YES, STAPH INFECTION TO BUTTOCKS . FEVER NO . FLU LIKE SYMPTOMS? NO . COUGH NO . INTEGUMENTARY: DO YOU HAVE ANY RASHES OR OPEN SORES? NO . ALLERGIC/IMMUNO: ARE YOU ALLERGIC TO IV DYE? NO . ANY NEW ALLERGIES? NO . PSYCHIATRIC: DO YOU HAVE THOUGHTS OF HURTING YOURSELF OR SOMEONE ELSE? NO . ARE YOU ABUSED, NEGLECTED, OR IN AN UNSAFE ENVIRONMENT? NO . ENDOCRINOLOGY: ARE YOU DIABETIC? NO . OTHER: DO YOU NEED ANY PRESCRIPTIONS? NO . IF YES, PLEASE LIST: ____ . ANY NEW PROBLEMS WITH YOUR MEDICATIONS? NO . WHEN DID YOU LAST EAT? ____ . WHEN DID YOU LAST DRINK? ____ . WHAT DID YOU LAST DRINK? ____ . NAME OF PERSON DRIVING YOU HOME? ____ . DO YOU HAVE ANY OTHER QUESTIONS OR CONCERNS NO . VITAL SIGNS WT 283.6 LBS, HT 74 IN, BMI 36.41 INDEX, BP 140/100 MANUAL, HR 105 /MIN, RR 18 /MIN, TEMP 97.0 F, OXYGEN SAT % 97%, NA INITIALS AW 1205, REVIEWED BY: EM. EXAMINATION GENERAL EXAMINATION: GENERALNO ACUTE DISTRESS, WELL NOURISHED AND HYDRATED. PSYCHAPPROPRIATE MOOD AND AFFECT . NECK:POINT TENDER BILATERAL NECK AND ACROSS THE TOP OF THE TRAPEZIUS. SKIN SHOWS NO ERYTHEMA, INCREASED WARMTH, ECCHYMOSIS, AND/OR SKIN ERUPTIONS. . LUNGS:CLEAR TO AUSCULTATION BILATERALLY, NO WHEEZES, RHONCHI, RALES. HEART:NO MURMURS, REGULAR RATE AND RHYTHM. ASSESSMENTS MYALGIA, OTHER SITE - M79.18 (PRIMARY) TREATMENT MYALGIA, OTHER SITE NOTES: TPI BILATERAL NECK AND SHOULDER. CLINICAL NOTES: 39 YEAR OLD MALE IN FOR POST TPI FOLLOW UP. WE DID DISCUSS POTENTIALLY STARTING PATIENT ON DICLOFENAC AND HE WOULD LIKE TO HOLD OFF FOR NOW. GIVEN PRESENTING SYMPTOMS AND RESULTS OF PHYSICAL EXAMINATION RECOMMENDED REPEAT TPI WITH FOLLOW UP. PATIENT HAS EXPRESSED UNDERSTANDING OF AND WAS IN AGREEMENT WITH TREATMENT PLAN. GIVEN TIME TO ASK QUESTIONS AND EXPRESS CONCERNS. PROCEDURE CODES FA211 ESTABILISHED PATIENT [facility] CHARGE DISPOSITION & COMMUNICATION FOLLOW UP POST PROCEDURE (REASON: TPI BILATERAL NECK AND SHOULDER) ELECTRONICALLY SIGNED BY MONE ABDI ON 01/20/2019 AT 01:06 PM EDT DISCLAIMER : THIS IS A VISIT SUMMARY EXTRACTED FROM THE [employer] CHART. IT IS NOT A COPY OF THE [employer] PROGRESS NOTE. HEATHER
== END ==
LOC: M PAIN 11:45
PROVIDERS: ATTEND Family Medicine
DX: M79.18 Myalgia, other site (principal); Z86.59 Personal history of other mental and behavioral disorders; G43.909 Migraine, unspecified, not intractable, without status migrainosus; M10.9 Gout, unspecified; F17.210 Nicotine dependence, cigarettes, uncomplicated; Z91.09 Other allergy status, other than to drugs and biological substances; Z86.19 Personal history of other infectious and parasitic diseases; Z79.899 Other long term (current) drug therapy

== ENCOUNTER → 2019-01-29 | Outpatient (CLI) | payer OTHER ==
[~2019-01-29] MED LIST changes: +BUPIVACAINE HCL 0.25% 10 ML VIAL As Ordered ONE; +BUPIVACAINE HCL 0.25% 30 ML VIAL As Ordered ONE; +TRIAMCINOLONE ACETONIDE SUSP 40 MG/ML VIAL (J3301) As Ordered ONE; +diazePAM 5 MG TAB As Ordered ONE; +oxyCODONE 5MG TAB As Ordered ONE
--- NOTE | 2019-02-04 23:28 | ECWPNPC ---
PATIENT NAME: ROBBY GATES : 1980 GENDER: MALE VISIT DATE: 01/29/2019 DISCHARGE DATE: 01/29/19 1109 VISIT LOCKED DATE TIME: PHYSICIAN: CINDY ESPINOSA MD RESOURCE: CINDY ESPINOSA MD REASON FOR APPOINTMENT 1. TPI BILATERAL NECK, SHOULDER, AND THORACIC HISTORY OF PRESENT ILLNESS HISTORY OF PRESENT ILLNESS: PAIN THE PATIENT DESCRIBES THE PAIN... FALL RISK SCREENING: SCREENING :NO FALLS REPORTED IN THE LAST YEAR CURRENT MEDICATIONS TAKING IBU-200 200 MG TABLET 1 TABLET WITH FOOD OR MILK NEEDED ORALLY EVERY 6 HRS TAKING NAPROXEN SODIUM 220 MG TABLET 2 TABLETS WITH FOOD OR MILK NEEDED ORALLY EVERY 12 HRS TAKING TART BUCKNER ADVANCED - CAPSULE 1 CAP ORALLY DAILY TAKING NASACORT ALLERGY 24HR 55 MCG/ACT AEROSOL 1 PUFF IN EACH NOSTRIL NASALLY ONCE A DAY TAKING SINGULAIR 10 MG TABLET 1 TABLET IN THE EVENING ORALLY ONCE A DAY TAKING MAY HAVE - - PLEASE DISPENSE FOUR-POST CANE DAILY WITH AMBULATION TAKING VITAMIN D3 5000 UNIT CAPSULE DIRECTED ORALLY TAKING GABAPENTIN 600 MG TABLET 1 TABLET ORALLY THREE TIMES DAILY TAKING BACLOFEN 10 MG TABLET 0.5 TABLET WITH FOOD OR MILK ORALLY THREE TIMES A DAY TAKING VENLAFAXINE HCL ER 225 MG TABLET EXTENDED RELEASE 24 HOUR 1 TABLET WITH FOOD ORALLY ONCE A DAY TAKING DIVALPROEX SODIUM 250 MG TABLET DELAYED RELEASE 1 TABLET ORALLY TWICE A DAY MEDICATION LIST REVIEWED AND RECONCILED WITH THE PATIENT PAST MEDICAL HISTORY SYNCOPE; POSSIBLY ORTHOSTATIC HYPOTENSION; RESOLVED OFF OF BP MEDS ANXIETY WITH DEPRESSION GOUT NECK/SHOULDER PAIN MIGRAINES PINEAL GLAND CYST ALLERGIES METALS: RASH - ALLERGY SURGICAL HISTORY DENIES PAST SURGICAL HISTORY FAMILY HISTORY FATHER: , OF ?ANEURISM MOTHER: ALIVE, ALCOHOLISM, HEART MURMUR, KIDNEY [place] SIBLINGS: 2 HALF BROTHERS AND 1 HALF SISTER ON PATERNAL SIDE; , NO KNOWN MEDICAL PROBLEMS PATERNAL GRAND FATHER: , IN LATE 30S OR EARLY 40S FROM [place] SOCIAL HISTORY GENERAL: TOBACCO USE ARE YOU A:CURRENT SMOKER ARE YOU INTERESTED IN QUITTING?THINKING ABOUT QUITTING PLANNING ON QUITTING NEXT WEEK-WEEK OF 02/01/19 PREVIOUS QUIT ATTEMPTS?YES, MORE THAN 6 MONTHS AGO. COUNSELED THE PATIENT ON SMOKING CESSATION, EDUCATION [id number]/23/2019 HOW MANY CIGARETTES A DAY DO YOU SMOKE?31 OR MORE HOW SOON AFTER YOU WAKE UP DO YOU SMOKE YOUR FIRST CIGARETTE?6-30 MIN HOW OFTEN DO YOU SMOKE CIGARETTES?EVERY DAY PATIENT COUNSELED ON THE DANGERS OF TOBACCO USE AND URGED TO QUIT:11/11/2018 SMOKING CESSATION INFORMATION GIVEN08/05/2018 HIV / HEP-C SCREENING HIV TEST OFFERED TO PATIENT:YES DATE OFFERED:12/23/2016 TEST ACCEPTED:YES OTHERS AT HOME: 6 KIDS, GIRLFRIEND. EDUCATION LEVEL OF EDUCATION:NOT FINISHED COLLEGE DIET: REGULAR. LANGUAGE LANGUAGES SPOKEN:[place] DOMESTIC VIOLENCE DO YOU FEEL SAFE IN YOUR ENVIRONMENT?YES BMI CARE GOAL FOLLOW-UP ABOVE NORMAL BMI FOLLOW-UPWEIGHT MONITORING RECREATIONAL DRUG USE DRUG USE?NO EXERCISE: NO REGULAR EXERCISE. LEARNING BARRIERS / SPECIAL NEEDS CHANGE FROM LAST VISIT?NO BARRIERS TO LEARNING?NO HEARING IMPAIRED?NO VISION IMPAIRED?YES COGNITIVELY IMPAIRED?NO :CORRECTIVE LENSES READINESS TO LEARN?YES LEARNING PREFERENCES?YES :BOOKLETS, HANDOUTS LEARNING CAPABILITIES PRESENT?YES EMOTIONAL BARRIERS?NO SPECIAL DEVICES?NO STOCKROOM ASSOCIATE NEEDED?NO PAIN CLINIC PFS, CLERGY, PUBLIC HEALTH REFERRALS WAS THE PROVIDER NOTIFIED OF ANY PERTINENT INFO?YES HAS THE PATIENT BEEN EDUCATED REGARDING HIS/HER PLAN OF CARE?YES HAS THE PATIENT BEEN EDUCATED REGARDING PAIN, THE RISK FOR PAIN, THE IMPORTANCE OF EFFECTIVE PAIN MANAGEMENT, AND THE PAIN ASSESSMENT PROCESS?YES LATEX QUESTIONNAIRE LATEX ALLERGY : HAVE YOU EVER DEVELOPED ANY TYPE OF REACTION AFTER HANDLING LATEX PRODUCTS SUCH RUBBER GLOVES, CONDOMS, DIAPHRAGMS, BALLOONS, SOCKS, OR UNDERWEAR?NO DATE ASKED : 09/30/2018 CAFFEINE CAFFEINE USE?YES 1 POT COFFEE/ DAY 1-2 [place]W/ DAY ADVANCE DIRECTIVE ADVANCE DIRECTIVE DISCUSSED WITH PATIENT:YES DECLINED HCP INFORMATION AND DECLINES ASSISTANCE WITH PAPERWORK. EPISCOPALIAN EPISCOPALIAN NO JAIN BELIEFS THAT WOULD IMPACT HEALTH CARE. MARITAL STATUS: SINGLE. ALCOHOL SCREENING DID YOU HAVE A DRINK CONTAINING ALCOHOL IN THE PAST YEAR?YES HOW OFTEN DID YOU HAVE SIX OR MORE DRINKS ON ONE OCCASION IN THE PAST YEAR?NEVER (0 POINTS) HOW MANY DRINKS DID YOU HAVE ON A TYPICAL DAY WHEN YOU WERE DRINKING IN THE PAST YEAR?1 OR 2 (0 POINTS) HOW OFTEN DID YOU HAVE A DRINK CONTAINING ALCOHOL IN THE PAST YEAR?MONTHLY OR LESS (1 POINT) POINTS1 INTERPRETATIONNEGATIVE OCCUPATION: [employer], WILL BE WORKING FOR [employer]. SEXUAL HX HAD SEX IN THE LAST 12 MONTHS (VAGINAL, ORAL, OR ANAL)?YES WITHWOMEN ONLY PREVENTION STRATEGIES DISCUSSED:OTHER USE PROTECTION?NO HAVE YOU EVER HAD AN STD?NO REVIEWED WITH PATIENT 03/24/18 1022 JSREVIEWED WITH PATIENT 06/15/18 0924 JS. HOSPITALIZATION/MAJOR DIAGNOSTIC PROCEDURE VIRAL MENINGITIS AGE 15 REVIEW OF SYSTEMS REVIEWED BY: PROVIDER: . CONSTITUTIONAL: ANY CHANGE IN YOUR MEDICAL CONDITION? NO . CHILLS NO . FEVER NO . INFECTION: DO YOU HAVE NEW INFECTIONS? NO . DO YOU HAVE HISTORY OF MRSA? NO . MUSCULOSKELETAL: ANY NEW PATTERNS OF PAIN OR NUMBNESS? NO . GASTROENTEROLOGY: ANY NEW CHANGE IN BOWEL CONTROL? NO . GENITOURINARY: ANY NEW CHANGE IN BLADDER CONTROL? NO . IS THERE A CHANCE YOU COULD BE ? NO . HEMATOLOGY/LYMPH: DO YOU TAKE ANY BLOOD THINNERS? (FOR EXAMPLE- COUMADIN, PLAVIX, AGGRENOX, PLATEL, PRADAXA, OR XARELTO) NO . WHEN WAS YOUR LAST DOSE? DATE: TIME: . NEUROLOGY: HAVE YOU FALLEN IN THE PAST 12 MONTHS? YES, PRIOR TO LAST VISIT . ANY NEW EXTREMITY NUMBNESS OR WEAKNESS? NO . CARDIOLOGY: DO YOU HAVE A PACEMAKER OR DEFIBRILLATOR? NO . RESPIRATORY: HAVE YOU BEEN SICK IN THE PAST WEEK? NO . FEVER NO . FLU LIKE SYMPTOMS? NO . COUGH NO . INTEGUMENTARY: DO YOU HAVE ANY RASHES OR OPEN SORES? NO . ALLERGIC/IMMUNO: ARE YOU ALLERGIC TO IV DYE? NO . ANY NEW ALLERGIES? NO . PSYCHIATRIC: DO YOU HAVE THOUGHTS OF HURTING YOURSELF OR SOMEONE ELSE? NO . ARE YOU ABUSED, NEGLECTED, OR IN AN UNSAFE ENVIRONMENT? NO . ENDOCRINOLOGY: ARE YOU DIABETIC? NO . OTHER: DO YOU NEED ANY PRESCRIPTIONS? NO . IF YES, PLEASE LIST: ____ . ANY NEW PROBLEMS WITH YOUR MEDICATIONS? NO . WHEN DID YOU LAST EAT? 01/28/19 2230 . WHEN DID YOU LAST DRINK? 01/29/19 0830 . WHAT DID YOU LAST DRINK? WATER . NAME OF PERSON DRIVING YOU HOME? AVANI . DO YOU HAVE ANY OTHER QUESTIONS OR CONCERNS NO . VITAL SIGNS WT 283.6 LBS, HT 74 IN, BMI 36.41 INDEX, BP 161/98 MM HG, HR 84 /MIN, RR 18 /MIN, TEMP 96.3 F, OXYGEN SAT % 97%, NA INITIALS AW 0953, REVIEWED BY: EM. ASSESSMENTS MYALGIA, OTHER SITE - M79.18 (PRIMARY) PROCEDURES PN TRIGGER POINT INJECTION WITH STEROIDS PRE PROCEDURE DIAGNOSIS 1. MYALGIA 2. PAIN AT BILATERAL NECK, SHOULDER, AND THORACIC AREA POST PROCEDURE DIAGNOSIS 1. MYALGIA 2. PAIN AT BILATERAL NECK, SHOULDER, AND THORACIC AREA PROCEDURE TRIGGER POINT INJECTION AT RIGHT AND LEFT NECK, RIGHT AND LEFT SHOULDER, AND RIGHT AND LEFT THORACIC AREAS SURGEON DR. CINDY ESPINOSA I O PSYCHOLOGIST NONE ANESTHESIA LOCAL PRE PROCEDURE NOTE THE PATIENT HAS A HISTORY OF CHRONIC PAIN AT THE RIGHT AND LEFT NECK, RIGHT AND LEFT SHOULDER, AND RIGHT AND LEFT THORACIC AREAS. I EVALUATED THE PATIENT AND REVIEWED THE CHART. THERE IS EVIDENCE OF BANDS OF TISSUE WITH RESTRICTION OF MOVEMENT AND PRESENCE OF TRIGGER POINT AT THE AFFECTED AREA. I WENT OVER THE RISKS, ALTERNATIVES, AND BENEFITS ASSOCIATED WITH THIS PROCEDURE. THE PATIENT WOULD LIKE TO PROCEED AND GIVE CONSENT TO PERFORMED THE PROCEDURE. THE PATIENT DENIES UNEXPLAINABLE WEIGHT LOSS, FEVER, CHILLS, OR NEW CHANGES IN URINARY OR BOWEL CONTROL DESCRIPTION OF PROCEDURE THE PATIENT WAS BROUGHT TO THE PROCEDURE ROOM AND PLACED IN THE SITTING POSITION. THE AREA WAS CLEANED WITH ALCOHOL. THE PROCEDURE WAS DONE USING ASEPTIC STERILE TECHNIQUE. I CHECKED LATERALITY AND THE LEVEL WHERE THE PROCEDURE WAS GOING TO BE PERFORMED WITH THE PATIENT AND THE SUPPORTING STAFF AT THE MOMENT OF THE TIME OUT IN THE PROCEDURE ROOM. USING A 25-GAUGE NEEDLE, TRIGGER POINTS WERE INJECTED AT THE RIGHT AND LEFT NECK, RIGHT AND LEFT SHOULDER, AND RIGHT AND LEFT THORACIC AREAS WITH A TOTAL OF 40 ML OF BUPIVACAINE 0.25% AND KENALOG 40 MG. THERE WAS NO EVIDENCE OF BLOOD, PARESTHESIA OR CEREBROSPINAL FLUID DURING THE PROCEDURE. THE PATIENT WAS SENT TO THE RECOVERY ROOM. THE PATIENT WAS MOVING THE EXTREMITIES AND DOING WELL. THERE WAS NO COMPLICATION DURING THE PROCEDURE POST PROCEDURE NOTE THE PATIENT WILL BE SEEN IN A FOLLOW UP IN THE NEXT FEW WEEKS. INSTRUCTIONS WERE GIVEN, QUESTIONS WERE ANSWERED, AND THE PATIENT EXPRESSED UNDERSTANDING AND AGREES WITH THE PLAN. I, MARILUZ MILLER, DOCUMENTED THE ABOVE INFORMATION ACTING A SCRIBE FOR DR. ESPINOSA. I HAVE REVIEWED THE ABOVE DOCUMENT, WRITTEN BY MARILUZ CRYSTAL AND I VERIFY THAT IT IS ACCURATE. PROCEDURE CODES 63336 INJECT TRIGGER POINTS 3/> DISPOSITION & COMMUNICATION FOLLOW UP 3 WEEKS ELECTRONICALLY SIGNED BY CINDY ESPINOSA MD, MD ON 02/04/2019 AT 01:29 PM EDT DISCLAIMER : THIS IS A VISIT SUMMARY EXTRACTED FROM THE [employer] CHART. IT IS NOT A COPY OF THE [employer] PROGRESS NOTE. MTDD
== END ==
LOC: M PAIN 09:45
PROVIDERS: ATTEND Anesthesiology
DX: G89.29 Other chronic pain (principal); M79.18 Myalgia, other site; M54.5 Low back pain; M25.511 Pain in right shoulder; M25.512 Pain in left shoulder; M54.6 Pain in thoracic spine; Z79.899 Other long term (current) drug therapy; F17.210 Nicotine dependence, cigarettes, uncomplicated; Z91.048 Other nonmedicinal substance allergy status
CPT/HCPCS: 20553; J3301

== ENCOUNTER → 2019-02-12 | Outpatient (CLI) | payer OTHER ==
[~2019-02-12] MED LIST changes: -BUPIVACAINE HCL 0.25% 10 ML VIAL As Ordered ONE; -BUPIVACAINE HCL 0.25% 30 ML VIAL As Ordered ONE; -TRIAMCINOLONE ACETONIDE SUSP 40 MG/ML VIAL (J3301) As Ordered ONE; -diazePAM 5 MG TAB As Ordered ONE; -oxyCODONE 5MG TAB As Ordered ONE
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
== END ==
LOC: M PAIN 14:30
PROVIDERS: ATTEND Family Medicine
DX: M79.18 Myalgia, other site (principal); Z86.59 Personal history of other mental and behavioral disorders; G43.909 Migraine, unspecified, not intractable, without status migrainosus; F17.210 Nicotine dependence, cigarettes, uncomplicated; Z91.09 Other allergy status, other than to drugs and biological substances; Z79.899 Other long term (current) drug therapy

== ENCOUNTER → 2019-04-07 | Outpatient (CLI) | payer OTHER ==
[~2019-04-07] MED LIST changes: +BUPIVACAINE HCL 0.25% 10 ML VIAL As Ordered ONE; +BUPIVACAINE HCL 0.25% 30 ML VIAL As Ordered ONE; +TRIAMCINOLONE ACETONIDE SUSP 40 MG/ML VIAL (J3301) As Ordered ONE; +diazePAM 5 MG TAB As Ordered ONE; +oxyCODONE 5MG TAB As Ordered ONE
--- NOTE | 2019-04-27 06:40 | ECWPNPC ---
PATIENT NAME: ROBBY GATES : 1980 GENDER: MALE VISIT DATE: 04/07/2019 DISCHARGE DATE: 04/07/19 1430 VISIT LOCKED DATE TIME: PHYSICIAN: CINDY ESPINOSA MD RESOURCE: CINDY ESPINOSA MD REASON FOR APPOINTMENT 1. BILATERAL NECK, SHOULDER, AND THORACIC TPI HISTORY OF PRESENT ILLNESS HISTORY OF PRESENT ILLNESS: PAIN THE PATIENT DESCRIBES THE PAIN... FALL RISK SCREENING: SCREENING :NO FALLS REPORTED IN THE LAST YEAR CURRENT MEDICATIONS TAKING IBU-200 200 MG TABLET 1 TABLET WITH FOOD OR MILK NEEDED ORALLY EVERY 6 HRS, NOTES: NONE RECENT TAKING NAPROXEN SODIUM 220 MG TABLET 2 TABLETS WITH FOOD OR MILK NEEDED ORALLY EVERY 12 HRS, NOTES: NONE RECENT TAKING TART BUCKNER ADVANCED - CAPSULE 1 CAP ORALLY DAILY, NOTES: 04/06 2200 TAKING SINGULAIR 10 MG TABLET 1 TABLET IN THE EVENING ORALLY ONCE A DAY, NOTES: 04/06 2200 TAKING MAY HAVE - - PLEASE DISPENSE FOUR-POST CANE DAILY WITH AMBULATION TAKING VITAMIN D3 5000 UNIT CAPSULE DIRECTED ORALLY , NOTES: 04/06 2200 TAKING GABAPENTIN 600 MG TABLET 1 TABLET ORALLY THREE TIMES DAILY, NOTES: TAKES NEEDED -NONE RECENT TAKING BACLOFEN 10 MG TABLET 0.5 TABLET WITH FOOD OR MILK ORALLY THREE TIMES A DAY, NOTES: TAKES NEEDED-NONE RECENT TAKING VENLAFAXINE HCL ER 225 MG TABLET EXTENDED RELEASE 24 HOUR 1 TABLET WITH FOOD ORALLY ONCE A DAY, NOTES: 04/06 2200 TAKING DIVALPROEX SODIUM 250 MG TABLET DELAYED RELEASE 1 TABLET ORALLY THREE TIMES DAILY, NOTES: 04/07 900 TAKING PROPRANOLOL HCL 20 MG TABLET 1 TABLET ON AN EMPTY STOMACH ORALLY ONCE A DAY, NOTES: 04/07 900 TAKING HYDROCHLOROTHIAZIDE 12.5 MG CAPSULE 1 CAPSULE IN THE MORNING ORALLY ONCE A DAY, NOTES: 04/06 2200 TAKING NICORETTE 4 MG GUM 1 PIECE NEEDED MOUTH/THROAT 24 TIME(S) A DAY, NOTES: NONE RECENT TAKING TRAZODONE HCL 50 MG TABLET 1 TABLET AT BEDTIME NEEDED ORALLY ONCE A DAY, NOTES: NONE RECENT TAKING NASACORT ALLERGY 24HR 55 MCG/ACT AEROSOL 1 PUFF IN EACH NOSTRIL NASALLY ONCE A DAY, NOTES: 04/06 2200 TAKING BUSPIRONE HCL 10 MG TABLET 1 TABLET ORALLY THREE TIMES DAILY, NOTES: 10/30 0900 MEDICATION LIST REVIEWED AND RECONCILED WITH THE PATIENT PAST MEDICAL HISTORY SYNCOPE; POSSIBLY ORTHOSTATIC HYPOTENSION; RESOLVED OFF OF BP MEDS ANXIETY WITH DEPRESSION GOUT NECK/SHOULDER PAIN MIGRAINES PINEAL GLAND CYST PT REPORTS UNTREATED CONCUSSION, PTSD DX ROCH PT REPORTS RUPTURED RIGHT EAR DRUM DX [employer] BACK PAIN ALLERGIES METALS: RASH - ALLERGY SURGICAL HISTORY NO SURGICAL HISTORY DOCUMENTED. FAMILY HISTORY FATHER: , OF ?ANEURISM MOTHER: ALIVE, ALCOHOLISM, HEART MURMUR, KIDNEY [place] SIBLINGS: 2 HALF BROTHERS AND 1 HALF SISTER ON PATERNAL SIDE; , NO KNOWN MEDICAL PROBLEMS PATERNAL GRAND FATHER: , IN LATE 30S OR EARLY 40S FROM [place] SOCIAL HISTORY GENERAL: TOBACCO USE ARE YOU A:CURRENT SMOKER ARE YOU INTERESTED IN QUITTING?THINKING ABOUT QUITTING PLANNING ON QUITTING NEXT WEEK-WEEK OF 02/01/19 PREVIOUS QUIT ATTEMPTS?YES, MORE THAN 6 MONTHS AGO. COUNSELED THE PATIENT ON SMOKING CESSATION, EDUCATION [id number]/30/2019 HOW MANY CIGARETTES A DAY DO YOU SMOKE?31 OR MORE HOW SOON AFTER YOU WAKE UP DO YOU SMOKE YOUR FIRST CIGARETTE?6-30 MIN HOW OFTEN DO YOU SMOKE CIGARETTES?EVERY DAY PATIENT COUNSELED ON THE DANGERS OF TOBACCO USE AND URGED TO QUIT:04/07/2019 SMOKING CESSATION INFORMATION GIVEN08/05/2018 HIV / HEP-C SCREENING HIV TEST OFFERED TO PATIENT:YES DATE OFFERED:12/23/2016 TEST ACCEPTED:YES OTHERS AT HOME: 6 KIDS, GIRLFRIEND. EDUCATION LEVEL OF EDUCATION:NOT FINISHED COLLEGE DIET: REGULAR. LANGUAGE LANGUAGES SPOKEN:CROATIAN DOMESTIC VIOLENCE DO YOU FEEL SAFE IN YOUR ENVIRONMENT?YES BMI CARE GOAL FOLLOW-UP ABOVE NORMAL BMI FOLLOW-UPWEIGHT MONITORING RECREATIONAL DRUG USE DRUG USE?NO EXERCISE: NO REGULAR EXERCISE. LEARNING BARRIERS / SPECIAL NEEDS CHANGE FROM LAST VISIT?NO BARRIERS TO LEARNING?NO HEARING IMPAIRED?NO VISION IMPAIRED?YES COGNITIVELY IMPAIRED?NO :CORRECTIVE LENSES READINESS TO LEARN?YES LEARNING PREFERENCES?YES :BOOKLETS, HANDOUTS LEARNING CAPABILITIES PRESENT?YES EMOTIONAL BARRIERS?NO SPECIAL DEVICES?NO PROCESS PLANT OPERATOR NEEDED?NO PAIN CLINIC PFS, CLERGY, PUBLIC HEALTH REFERRALS WAS THE PROVIDER NOTIFIED OF ANY PERTINENT INFO? N/A HAS THE PATIENT BEEN EDUCATED REGARDING HIS/HER PLAN OF CARE?YES HAS THE PATIENT BEEN EDUCATED REGARDING PAIN, THE RISK FOR PAIN, THE IMPORTANCE OF EFFECTIVE PAIN MANAGEMENT, AND THE PAIN ASSESSMENT PROCESS?YES LATEX QUESTIONNAIRE LATEX ALLERGY : HAVE YOU EVER DEVELOPED ANY TYPE OF REACTION AFTER HANDLING LATEX PRODUCTS SUCH RUBBER GLOVES, CONDOMS, DIAPHRAGMS, BALLOONS, SOCKS, OR UNDERWEAR?NO DATE ASKED : 09/30/2018 CAFFEINE CAFFEINE USE?YES 1 POT COFFEE/ DAY 1-2 [place] [employer]/ DAY ADVANCE DIRECTIVE ADVANCE DIRECTIVE DISCUSSED WITH PATIENT:YES 04/07/19 PT DOES NOT HAVE ANY ADVANCED DIRECTIVES AND HE DECLINES INFORMATION ON HCP AT THIS TIME. AD [employer] NO JUDAISM BELIEFS THAT WOULD IMPACT HEALTH CARE. MARITAL STATUS: SINGLE. ALCOHOL SCREENING DID YOU HAVE A DRINK CONTAINING ALCOHOL IN THE PAST YEAR?YES HOW OFTEN DID YOU HAVE SIX OR MORE DRINKS ON ONE OCCASION IN THE PAST YEAR?NEVER (0 POINTS) HOW MANY DRINKS DID YOU HAVE ON A TYPICAL DAY WHEN YOU WERE DRINKING IN THE PAST YEAR?1 OR 2 (0 POINTS) HOW OFTEN DID YOU HAVE A DRINK CONTAINING ALCOHOL IN THE PAST YEAR?MONTHLY OR LESS (1 POINT) POINTS1 INTERPRETATIONNEGATIVE OCCUPATION: [employer], WILL BE WORKING FOR [employer]. SEXUAL HX HAD SEX IN THE LAST 12 MONTHS (VAGINAL, ORAL, OR ANAL)?YES WITHWOMEN ONLY PREVENTION STRATEGIES DISCUSSED:OTHER USE PROTECTION?NO HAVE YOU EVER HAD AN STD?NO REVIEWED WITH PATIENT 03/24/18 1022 JSREVIEWED WITH PATIENT 06/15/18 0924 JSREVIEWED WITH PATIENT 02/12/19 1505 BV. HOSPITALIZATION/MAJOR DIAGNOSTIC PROCEDURE VIRAL MENINGITIS AGE 15 BETH X3 DAYS 02/01/19, EPILECTAL STUDY 02/01/19 REVIEW OF SYSTEMS REVIEWED BY: PROVIDER: . CONSTITUTIONAL: ANY CHANGE IN YOUR MEDICAL CONDITION? NO . CHILLS NO . FEVER NO . INFECTION: DO YOU HAVE NEW INFECTIONS? NO . DO YOU HAVE HISTORY OF MRSA? NO . MUSCULOSKELETAL: ANY NEW PATTERNS OF PAIN OR NUMBNESS? YES, HAS HAD AN INCREASE IN PAIN-TODAY WORSE IN EYES, NECK AND SHOULDERS . GASTROENTEROLOGY: ANY NEW CHANGE IN BOWEL CONTROL? NO . GENITOURINARY: ANY NEW CHANGE IN BLADDER CONTROL? NO . IS THERE A CHANCE YOU COULD BE ? NO . HEMATOLOGY/LYMPH: DO YOU TAKE ANY BLOOD THINNERS? (FOR EXAMPLE- COUMADIN, PLAVIX, AGGRENOX, PLATEL, PRADAXA, OR XARELTO) NO . WHEN WAS YOUR LAST DOSE? DATE: TIME: . NEUROLOGY: HAVE YOU FALLEN IN THE PAST 12 MONTHS? YES, FREQUENTLY, STATES DUE TO "WORLD SPINNING" - IS BEING WORKED UP FOR THIS. HAS NOT FALLEN SINCE JAN. . ANY NEW EXTREMITY NUMBNESS OR WEAKNESS? YES, LEFT ELBOW NUMB AND WEAK SINCE JUL. STATES TRIGGER POINT INJECTIONS HELP THIS . CARDIOLOGY: DO YOU HAVE A PACEMAKER OR DEFIBRILLATOR? NO . RESPIRATORY: HAVE YOU BEEN SICK IN THE PAST WEEK? NO . FEVER NO . FLU LIKE SYMPTOMS? NO . COUGH YES, STATES IT'S BEEN CHRONIC SINCE PNEUMONIA IN FEB. STATES HE OCCASSIONALLY RAISES YELLOW MUCUS. DENIES FEVER ORCHILLS . INTEGUMENTARY: DO YOU HAVE ANY RASHES OR OPEN SORES? NO . ALLERGIC/IMMUNO: ARE YOU ALLERGIC TO IV DYE? NO . ANY NEW ALLERGIES? NO . PSYCHIATRIC: DO YOU HAVE THOUGHTS OF HURTING YOURSELF OR SOMEONE ELSE? NO . ARE YOU ABUSED, NEGLECTED, OR IN AN UNSAFE ENVIRONMENT? NO . ENDOCRINOLOGY: ARE YOU DIABETIC? NO . OTHER: DO YOU NEED ANY PRESCRIPTIONS? NO . IF YES, PLEASE LIST: ____ . ANY NEW PROBLEMS WITH YOUR MEDICATIONS? NO . WHEN DID YOU LAST EAT? 04/06 2100 . WHEN DID YOU LAST DRINK? 04/07 0500 . WHAT DID YOU LAST DRINK? BLACK COFFEE . NAME OF PERSON DRIVING YOU HOME? AVANI HUNTER . DO YOU HAVE ANY OTHER QUESTIONS OR CONCERNS NO PLANS ON GETTING THE FLU VACCINE DEVONTE. SUGGESTED TIME FRAME FROM GETTING TRIGGER POINT INJECTION DISCUSSED WITH PT AND HE VERBALIZED UNDERSTANDING. AD . VITAL SIGNS WT 285.2 LBS, HT 74 IN, BMI 36.61 INDEX, BP 144/80 MM HG, HR 82 /MIN, RR 18 /MIN, TEMP 96.3 F, OXYGEN SAT % 96%, SAFE IN ENV? (Y/N) Y, NA INITIALS OH 11:57, REVIEWED BY: AD. ASSESSMENTS MYALGIA, OTHER SITE - M79.18 (PRIMARY) PROCEDURES PN TRIGGER POINT INJECTION WITH STEROIDS PRE PROCEDURE DIAGNOSIS 1. MYALGIA 2. PAIN AT BILATERAL NECK AREA, BILATERAL SHOULDER AREA, AND BILATERAL THORACIC AREA. POST PROCEDURE DIAGNOSIS 1. MYALGIA 2. PAIN AT BILATERAL NECK AREA, BILATERAL SHOULDER AREA, AND BILATERAL THORACIC AREA. PROCEDURE TRIGGER POINT INJECTION AT RIGHT AND LEFT NECK AREA, RIGHT AND LEFT SHOULDER AREA, AND RIGHT AND LEFT THORACIC AREA. SURGEON DR. CINDY ESPINOSA OFFICE MACHINE SERVICER APPRENTICE NONE ANESTHESIA LOCAL PRE PROCEDURE NOTE THE PATIENT HAS A HISTORY OF CHRONIC PAIN AT THE RIGHT AND LEFT NECK AREA, RIGHT AND LEFT SHOULDER AREA, AND RIGHT AND LEFT THORACIC AREA. I EVALUATED THE PATIENT AND REVIEWED THE CHART. THERE IS EVIDENCE OF BANDS OF TISSUE WITH RESTRICTION OF MOVEMENT AND PRESENCE OF TRIGGER POINT AT THE AFFECTED AREA. I WENT OVER THE RISKS, ALTERNATIVES, AND BENEFITS ASSOCIATED WITH THIS PROCEDURE. THE PATIENT WOULD LIKE TO PROCEED AND GIVES CONSENT TO PERFORM THE PROCEDURE. THE PATIENT DENIES UNEXPLAINABLE WEIGHT LOSS, FEVER, CHILLS, OR NEW CHANGES IN URINARY OR BOWEL CONTROL DESCRIPTION OF PROCEDURE THE PATIENT WAS BROUGHT TO THE PROCEDURE ROOM AND PLACED IN THE SITTING POSITION. THE AREA WAS CLEANED WITH ALCOHOL. THE PROCEDURE WAS DONE USING ASEPTIC STERILE TECHNIQUE. I CHECKED LATERALITY AND THE LEVEL WHERE THE PROCEDURE WAS GOING TO BE PERFORMED WITH THE PATIENT AND THE SUPPORTING STAFF AT THE MOMENT OF THE TIME OUT IN THE PROCEDURE ROOM. USING A 25-GAUGE NEEDLE, TRIGGER POINTS WERE INJECTED AT THE RIGHT AND LEFT NECK AREA, RIGHT AND LEFT SHOULDER AREA, AND RIGHT AND LEFT THORACIC AREA WITH A TOTAL OF 40 ML OF BUPIVACAINE 0.25% AND KENALOG 40 MG. THERE WAS NO EVIDENCE OF BLOOD, PARESTHESIA OR CEREBROSPINAL FLUID DURING THE PROCEDURE. THE PATIENT WAS SENT TO THE RECOVERY ROOM. THE PATIENT WAS MOVING THE EXTREMITIES AND DOING WELL. THERE WAS NO COMPLICATION DURING THE PROCEDURE POST PROCEDURE NOTE I WILL REQUEST FOR REDUCED MEDICATION TO BE USED FOR THE NEXT PROCEDURE, DUE TO THE PATIENT BEING VERY SEDATED FOR THIS PROCEDURE. THE PATIENT WILL BE SEEN IN A FOLLOW UP IN THE NEXT FEW WEEKS. INSTRUCTIONS WERE GIVEN, QUESTIONS WERE ANSWERED, AND THE PATIENT EXPRESSED UNDERSTANDING AND AGREES WITH THE PLAN. I, MIGUEL BOWERS, DOCUMENTED THE ABOVE INFORMATION ACTING A SCRIBE FOR DR. ESPINOSA. I HAVE REVIEWED THE ABOVE DOCUMENT, WRITTEN BY MIGUEL CRYSTAL AND I VERIFY THAT IT IS ACCURATE. PROCEDURE CODES 21436 INJECT TRIGGER POINTS 3/> DISPOSITION & COMMUNICATION FOLLOW UP 3 WEEKS ELECTRONICALLY SIGNED BY CINDY ESPINOSA MD, MD ON 04/26/2019 AT 04:47 PM EST DISCLAIMER : THIS IS A VISIT SUMMARY EXTRACTED FROM THE [employer] CHART. IT IS NOT A COPY OF THE [employer] PROGRESS NOTE. HEATHER
== END ==
LOC: M PAIN 11:45
PROVIDERS: ATTEND Anesthesiology
DX: M79.18 Myalgia, other site (principal); F17.210 Nicotine dependence, cigarettes, uncomplicated; Z79.899 Other long term (current) drug therapy; Z91.048 Other nonmedicinal substance allergy status
CPT/HCPCS: 20553; J3301

== ENCOUNTER → 2019-04-23 | Outpatient (CLI) | payer OTHER ==
[~2019-04-23] MED LIST changes: -BUPIVACAINE HCL 0.25% 10 ML VIAL As Ordered ONE; -BUPIVACAINE HCL 0.25% 30 ML VIAL As Ordered ONE; -TRIAMCINOLONE ACETONIDE SUSP 40 MG/ML VIAL (J3301) As Ordered ONE; -diazePAM 5 MG TAB As Ordered ONE; -oxyCODONE 5MG TAB As Ordered ONE
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
== END ==
LOC: M PAIN 13:00
PROVIDERS: ATTEND Family Medicine
DX: M50.10 Cervical disc disorder with radiculopathy, unspecified cervical region (principal); F17.210 Nicotine dependence, cigarettes, uncomplicated; Z79.891 Long term (current) use of opiate analgesic; Z79.899 Other long term (current) drug therapy; Z91.048 Other nonmedicinal substance allergy status

== ENCOUNTER → 2019-05-21 | Outpatient (CLI) | payer OTHER ==
--- NOTE | 2019-05-25 02:19 | ECWPNPC ---
PATIENT NAME: ROBBY GATES : 1980 GENDER: MALE VISIT DATE: 05/21/2019 DISCHARGE DATE: 05/21/19 1350 VISIT LOCKED DATE TIME: PHYSICIAN: AGATHA RENEE RESOURCE: AGATHA RENEE REASON FOR APPOINTMENT 1. [facility] HISTORY OF PRESENT ILLNESS HISTORY OF PRESENT ILLNESS: PAIN THE PATIENT DESCRIBES THE PAIN... 39-YEAR-OLD MALE IN FOR CHRONIC PAIN FOLLOW-UP. HE RATES PAIN CURRENTLY AT A 7 OUT OF 10 AND DESCRIBES IT ACHING, BURNING, AND CRAMPS. HE HAS BEEN PRESCRIBED BACLOFEN HOWEVER HE ADMITS THAT HE HAS NOT BEEN TAKING IT HE DOES NOT LIKE THE WAY IT MAKES HIM FEEL. FALL RISK SCREENING: SCREENING :NO FALLS REPORTED IN THE LAST YEAR CURRENT MEDICATIONS TAKING TART BUCKNER ADVANCED - CAPSULE 1 CAP ORALLY DAILY TAKING SINGULAIR 10 MG TABLET 1 TABLET IN THE EVENING ORALLY ONCE A DAY TAKING MAY HAVE - - PLEASE DISPENSE FOUR-POST CANE DAILY WITH AMBULATION TAKING VENLAFAXINE HCL ER 75 MG CAPSULE EXTENDED RELEASE 24 HOUR 1 TABLET WITH FOOD ORALLY ONCE A DAY TAKING DIVALPROEX SODIUM 250 MG TABLET DELAYED RELEASE 1 TABLET ORALLY 500MG @ NIGHT TAKING NASACORT ALLERGY 24HR 55 MCG/ACT AEROSOL 1 PUFF IN EACH NOSTRIL NASALLY ONCE A DAY TAKING DICLOFENAC SODIUM 50 MG TABLET DELAYED RELEASE 1 TABLET WITH FOOD OR MILK ORALLY THREE TIMES A DAY TAKING LISINOPRIL 20 MG TABLET 1 TABLET ORALLY ONCE A DAY TAKING PROPRANOLOL HCL 20 MG TABLET 1 TABLET ON AN EMPTY STOMACH ORALLY ONCE A DAY TAKING PROMETHAZINE HCL 25 MG TABLET 1 TABLET NEEDED ORALLY EVERY 12 HRS NOT-TAKING VITAMIN D3 5000 UNIT CAPSULE DIRECTED ORALLY NOT-TAKING BACLOFEN 10 MG TABLET 0.5 TABLET WITH FOOD OR MILK ORALLY THREE TIMES A DAY, NOTES: TAKES NEEDED DISCONTINUED BUSPIRONE HCL 10 MG TABLET 1 TABLET ORALLY THREE TIMES DAILY DISCONTINUED HYDROCHLOROTHIAZIDE 12.5 MG TABLET 1 TABLET IN THE MORNING ORALLY ONCE A DAY MEDICATION LIST REVIEWED AND RECONCILED WITH THE PATIENT PAST MEDICAL HISTORY SYNCOPE; POSSIBLY ORTHOSTATIC HYPOTENSION; RESOLVED OFF OF BP MEDS ANXIETY WITH DEPRESSION GOUT NECK/SHOULDER PAIN MIGRAINES PINEAL GLAND CYST PT REPORTS UNTREATED CONCUSSION, PTSD DX ROCH PT REPORTS RUPTURED RIGHT EAR DRUM DX [employer] BACK PAIN ANXIETY ALLERGIES METALS: RASH - ALLERGY SURGICAL HISTORY DENIES PAST SURGICAL HISTORY FAMILY HISTORY FATHER: , OF ?ANEURISM MOTHER: ALIVE, ALCOHOLISM, HEART MURMUR, KIDNEY [place] SIBLINGS: 2 HALF BROTHERS AND 1 HALF SISTER ON PATERNAL SIDE; , NO KNOWN MEDICAL PROBLEMS PATERNAL GRAND FATHER: , IN LATE 30S OR EARLY 40S FROM [place] SOCIAL HISTORY GENERAL: TOBACCO USE ARE YOU A:CURRENT SMOKER ARE YOU INTERESTED IN QUITTING?THINKING ABOUT QUITTING PLANNING ON QUITTING SOON - HAS THE SUPPLIES TO QUIT PREVIOUS QUIT ATTEMPTS?YES, MORE THAN 6 MONTHS AGO. COUNSELED THE PATIENT ON SMOKING CESSATION, EDUCATION [id number]/13/2019 HOW MANY CIGARETTES A DAY DO YOU SMOKE?31 OR MORE HOW SOON AFTER YOU WAKE UP DO YOU SMOKE YOUR FIRST CIGARETTE?6-30 MIN HOW OFTEN DO YOU SMOKE CIGARETTES?EVERY DAY PATIENT COUNSELED ON THE DANGERS OF TOBACCO USE AND URGED TO QUIT:04/28/2019 SMOKING CESSATION INFORMATION GIVEN04/28/2019 HIV / HEP-C SCREENING HIV TEST OFFERED TO PATIENT:YES DATE OFFERED:12/23/2016 TEST ACCEPTED:YES OTHERS AT HOME: 6 KIDS, GIRLFRIEND. EDUCATION LEVEL OF EDUCATION:NOT FINISHED COLLEGE DIET: REGULAR. LANGUAGE LANGUAGES SPOKEN:KHMER DOMESTIC VIOLENCE DO YOU FEEL SAFE IN YOUR ENVIRONMENT?YES BMI CARE GOAL FOLLOW-UP ABOVE NORMAL BMI FOLLOW-UPWEIGHT MONITORING RECREATIONAL DRUG USE DRUG USE?NO EXERCISE: NO REGULAR EXERCISE. LEARNING BARRIERS / SPECIAL NEEDS CHANGE FROM LAST VISIT?NO BARRIERS TO LEARNING?NO HEARING IMPAIRED?NO VISION IMPAIRED?YES COGNITIVELY IMPAIRED?NO :CORRECTIVE LENSES READINESS TO LEARN?YES LEARNING PREFERENCES?YES :BOOKLETS, HANDOUTS LEARNING CAPABILITIES PRESENT?YES EMOTIONAL BARRIERS?NO SPECIAL DEVICES?NO TILER'S ASSISTANT NEEDED?NO PAIN CLINIC PFS, CLERGY, PUBLIC HEALTH REFERRALS WAS THE PROVIDER NOTIFIED OF ANY PERTINENT INFO? N/A HAS THE PATIENT BEEN EDUCATED REGARDING HIS/HER PLAN OF CARE?YES HAS THE PATIENT BEEN EDUCATED REGARDING PAIN, THE RISK FOR PAIN, THE IMPORTANCE OF EFFECTIVE PAIN MANAGEMENT, AND THE PAIN ASSESSMENT PROCESS?YES LATEX QUESTIONNAIRE LATEX ALLERGY : HAVE YOU EVER DEVELOPED ANY TYPE OF REACTION AFTER HANDLING LATEX PRODUCTS SUCH RUBBER GLOVES, CONDOMS, DIAPHRAGMS, BALLOONS, SOCKS, OR UNDERWEAR?NO LATEX ALLERGY : HAVE YOU EVER DEVELOPED ANY TYPE OF REACTION DURING OR AFTER DENTAL APPOINTMENT, VAGINAL/RECTAL EXAMINATION, SURGICAL PROCEDURE, OR ANY OTHER EXPOSURE?NO DATE ASKED : 09/30/2018 LATEX RISK : HAVE YOU EVER HAD ANY DIFFICULTY BREATHING OR HIVES AFTER EATING OR HANDLING ANY FRUITS, OR VEGETABLES; SUCH KIWI, BANANAS, STONE FRUITS, OR CHESTNUTSNO LATEX RISK : DO YOU HAVE A PREVIOUS PERSONAL HISTORY OF MORE THAN NINE SURGERIES, SPINA BIFIDA, OR REPEATED CATHERIZATIONS? NO LATEX RISK : ARE YOU FREQUENTLY EXPOSED TO LATEX PRODUCTS IN YOUR OCCUPATION?NO CAFFEINE CAFFEINE USE?YES 1 POT COFFEE/ DAY 1-2 [place] [employer]/ DAY ADVANCE DIRECTIVE ADVANCE DIRECTIVE DISCUSSED WITH PATIENT:YES PT DOES NOT HAVE ANY ADVANCED DIRECTIVES AND HE DECLINES INFORMATION ON HCP AT THIS TIME. YARSANISM YARSANISM NO FAITH BELIEFS THAT WOULD IMPACT HEALTH CARE. MARITAL STATUS: SINGLE. ALCOHOL SCREENING DID YOU HAVE A DRINK CONTAINING ALCOHOL IN THE PAST YEAR?YES HOW OFTEN DID YOU HAVE SIX OR MORE DRINKS ON ONE OCCASION IN THE PAST YEAR?NEVER (0 POINTS) HOW MANY DRINKS DID YOU HAVE ON A TYPICAL DAY WHEN YOU WERE DRINKING IN THE PAST YEAR?1 OR 2 (0 POINTS) HOW OFTEN DID YOU HAVE A DRINK CONTAINING ALCOHOL IN THE PAST YEAR?MONTHLY OR LESS (1 POINT) POINTS1 INTERPRETATIONNEGATIVE OCCUPATION: [employer], WILL BE WORKING FOR [employer]. SEXUAL HX HAD SEX IN THE LAST 12 MONTHS (VAGINAL, ORAL, OR ANAL)?YES WITHWOMEN ONLY PREVENTION STRATEGIES DISCUSSED:OTHER USE PROTECTION?NO HAVE YOU EVER HAD AN STD?NO REVIEWED WITH PATIENT 03/24/18 1022 JSREVIEWED WITH PATIENT 06/15/18 0924 JSREVIEWED WITH PATIENT 02/12/19 1505 BVREVIEWED WITH PATIENT 04/23/19 1316 JS. HOSPITALIZATION/MAJOR DIAGNOSTIC PROCEDURE VIRAL MENINGITIS AGE 15 BETH X3 DAYS 02/01/19, EPILECTAL STUDY 02/01/19 REVIEW OF SYSTEMS REVIEWED BY: PROVIDER: LOBITO LANDEROS . CONSTITUTIONAL: ANY CHANGE IN YOUR MEDICAL CONDITION? NO . CHILLS NO . FEVER NO . INFECTION: DO YOU HAVE NEW INFECTIONS? NO . DO YOU HAVE HISTORY OF MRSA? NO . MUSCULOSKELETAL: ANY NEW PATTERNS OF PAIN OR NUMBNESS? NO . GASTROENTEROLOGY: ANY NEW CHANGE IN BOWEL CONTROL? NO . GENITOURINARY: ANY NEW CHANGE IN BLADDER CONTROL? NO . IS THERE A CHANCE YOU COULD BE ? NO . HEMATOLOGY/LYMPH: DO YOU TAKE ANY BLOOD THINNERS? (FOR EXAMPLE- COUMADIN, PLAVIX, AGGRENOX, PLATEL, PRADAXA, OR XARELTO) NO . WHEN WAS YOUR LAST DOSE? DATE: TIME: . NEUROLOGY: HAVE YOU FALLEN IN THE PAST 12 MONTHS? YES, LAST WEEK FELL AT WORK FROM LOSS OF BALANCE, PT DENIES INJURIES . ANY NEW EXTREMITY NUMBNESS OR WEAKNESS? NO . CARDIOLOGY: DO YOU HAVE A PACEMAKER OR DEFIBRILLATOR? NO . RESPIRATORY: HAVE YOU BEEN SICK IN THE PAST WEEK? YES, COLD S/S . FEVER NO . FLU LIKE SYMPTOMS? NO . COUGH YES, GREEN MUCOUS HAS CHANGED TO CLEAR MUCOUS . INTEGUMENTARY: DO YOU HAVE ANY RASHES OR OPEN SORES? NO . ALLERGIC/IMMUNO: ARE YOU ALLERGIC TO IV DYE? NO . ANY NEW ALLERGIES? NO . PSYCHIATRIC: DO YOU HAVE THOUGHTS OF HURTING YOURSELF OR SOMEONE ELSE? NO . ARE YOU ABUSED, NEGLECTED, OR IN AN UNSAFE ENVIRONMENT? NO . ENDOCRINOLOGY: ARE YOU DIABETIC? NO . OTHER: DO YOU NEED ANY PRESCRIPTIONS? NO . IF YES, PLEASE LIST: ____ . ANY NEW PROBLEMS WITH YOUR MEDICATIONS? NO . WHEN DID YOU LAST EAT? ____ . WHEN DID YOU LAST DRINK? ____ . WHAT DID YOU LAST DRINK? ____ . NAME OF PERSON DRIVING YOU HOME? ____ . DO YOU HAVE ANY OTHER QUESTIONS OR CONCERNS I'M STILL IN PAIN . VITAL SIGNS WT 286.8 LBS, HT 74 IN, BMI 36.82 INDEX, BP 142/71 MM HG, HR 71 /MIN, RR 18 /MIN, TEMP 96.0 F, OXYGEN SAT % 97%, NA INITIALS AW 1320, REVIEWED BY: EM. EXAMINATION GENERAL EXAMINATION: GENERALNO ACUTE DISTRESS, WELL NOURISHED AND HYDRATED. PSYCHAPPROPRIATE MOOD AND AFFECT . LUNGS:CLEAR TO AUSCULTATION BILATERALLY, NO WHEEZES, RHONCHI, RALES. HEART:NO MURMURS, REGULAR RATE AND RHYTHM. ASSESSMENTS CERVICAL DISC DISORDER WITH RADICULOPATHY - M50.10 (PRIMARY) TREATMENT CERVICAL DISC DISORDER WITH RADICULOPATHY STOP BACLOFEN TABLET, 10 MG, 0.5 TABLET WITH FOOD OR MILK, ORALLY, THREE TIMES A DAY, NOTES: TAKES NEEDED START CYCLOBENZAPRINE HCL TABLET, 10 MG, 1 TABLET NEEDED, ORALLY, THREE TIMES A DAY, 30 DAY(S), 90 TABLET CLINICAL NOTES: 39-YEAR-OLD MALE IN FOR CHRONIC PAIN FOLLOW-UP. GIVEN PRESENTING SYMPTOMS AND RESULTS OF PHYSICAL EXAMINATION RECOMMENDED DISCONTINUING BACLOFEN AND STARTING FLEXERIL 10 MG 3 TIMES A DAY NEEDED WITH FOLLOW-UP IN 2 MONTHS TO DETERMINE EFFICACY OF TREATMENT. POTENTIAL SIDE EFFECTS OF MEDICAITON DISCUSSED WITH PATIENT TO INCLUDE SYMPTOMS OF SERETONIN SYNDROME. PATIENT HAS EXPRESSED UNDERSTANDING OF AND WAS IN AGREEMENT WITH TREATMENT PLAN. GIVEN TIME TO ASK QUESTIONS AND EXPRESS CONCERNS. PROCEDURE CODES FA211 ESTABILISHED PATIENT [facility] CHARGE DISPOSITION & COMMUNICATION FOLLOW UP 2 MONTHS (REASON: NECK PAIN) ELECTRONICALLY SIGNED BY MONE ABDI ON 05/24/2019 AT 09:12 AM EST DISCLAIMER : THIS IS A VISIT SUMMARY EXTRACTED FROM THE [employer] CHART. IT IS NOT A COPY OF THE [employer] PROGRESS NOTE. MTDD
== END ==
LOC: M PAIN 13:15
PROVIDERS: ATTEND Family Medicine
DX: M50.10 Cervical disc disorder with radiculopathy, unspecified cervical region (principal); G89.29 Other chronic pain; Z86.59 Personal history of other mental and behavioral disorders; G43.909 Migraine, unspecified, not intractable, without status migrainosus; F17.210 Nicotine dependence, cigarettes, uncomplicated; Z79.899 Other long term (current) drug therapy

== ENCOUNTER → 2019-07-22 | Outpatient (CLI) | payer OTHER ==
[~2019-07-22] MED LIST changes: -MONT10TA2; +MONT10TA4
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
== END ==
LOC: M PAIN 09:45
PROVIDERS: ATTEND Family Medicine
DX: M79.18 Myalgia, other site (principal)

== ENCOUNTER → 2019-08-19 | Outpatient (REF) | payer OTHER ==
[2019-08-19 17:54] LABS: HEMATOCRIT 48.1 % (42.0-52.0); HEMOGLOBIN 15.9 g/dl (13.5-17.5); MEAN CORPUSCULAR HEMOGLOBIN 29.1 pg (27.0-33.0); MEAN CORPUSCULAR HGB CONC 33.1 g/dl (32.0-36.5); MEAN CORPUSCULAR VOLUME 88.1 fl (80.0-96.0); PLATELET COUNT, AUTOMATED 204 10^3/uL (150-450); RED BLOOD COUNT 5.46 10^6/uL (4.30-6.10); WHITE BLOOD COUNT 10.9 10^3/uL (4.0-10.0)
== END ==
LOC: M SFHCPLAZ 15:50
DX: K92.1 Melena (principal)

== ENCOUNTER → 2019-09-01 | Outpatient (CLI) | payer OTHER ==
[~2019-09-01] MED LIST changes: +BUPIVACAINE HCL 0.25% 30ML VIAL As Ordered ONE; +TRIAMCINOLONE ACETONIDE SUSP 40 MG/ML VIAL (J3301) As Ordered ONE; +diazePAM 5 MG TAB As Ordered ONE; +oxyCODONE 5MG TAB As Ordered ONE
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
== END ==
LOC: M PAIN 09:00
PROVIDERS: ATTEND Anesthesiology
DX: M79.18 Myalgia, other site (principal); F17.210 Nicotine dependence, cigarettes, uncomplicated; Z79.899 Other long term (current) drug therapy; Z91.048 Other nonmedicinal substance allergy status
CPT/HCPCS: 20553; J3301

== ENCOUNTER → 2019-09-15 | Outpatient (CLI) | payer OTHER ==
[~2019-09-15] MED LIST changes: -BUPIVACAINE HCL 0.25% 30ML VIAL As Ordered ONE; -TRIAMCINOLONE ACETONIDE SUSP 40 MG/ML VIAL (J3301) As Ordered ONE; -diazePAM 5 MG TAB As Ordered ONE; -oxyCODONE 5MG TAB As Ordered ONE
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
== END ==
LOC: M PAIN 11:45 → M TMPAIN 11:45
PROVIDERS: ATTEND Family Medicine
DX: M54.2 Cervicalgia (principal); M79.18 Myalgia, other site; Z86.59 Personal history of other mental and behavioral disorders; G43.909 Migraine, unspecified, not intractable, without status migrainosus; Z91.09 Other allergy status, other than to drugs and biological substances; Z79.899 Other long term (current) drug therapy

== ENCOUNTER → 2019-10-19 | Outpatient (REF) | payer OTHER ==
[2019-10-19 14:40] LABS: URIC ACID 6.3 MG/DL (3.5-7.2)
== END ==
LOC: M PLALAB 13:18
PROVIDERS: ATTEND Family Medicine
DX: R33.9 Retention of urine, unspecified (principal); M1A.9XX0 Chronic gout, unspecified, without tophus (tophi)

== ENCOUNTER 2019-12-31 10:15 | Outpatient (RCR) | payer OTHER | END 2020-01-07 | LOC: M PT 10:15 | PROVIDERS: ATTEND Orthopaedic Surgery Orthopaedic Surgery of the Spine | DX: Z98.890 Other specified postprocedural states (principal) ==

== ENCOUNTER 2020-01-21 15:15 | Outpatient (RCR) | payer OTHER, MEDICAID | END 2020-02-07 | LOC: M PT 15:15 | PROVIDERS: ATTEND Orthopaedic Surgery Orthopaedic Surgery of the Spine | DX: Z98.890 Other specified postprocedural states (principal) ==

== ENCOUNTER → 2020-01-26 | Outpatient (CLI) | payer OTHER, MEDICAID | LOC: M PAIN 11:00 | PROVIDERS: ATTEND Family Medicine | DX: M79.18 Myalgia, other site (principal) ==

== ENCOUNTER → 2020-02-12 | Outpatient (CLI) | payer OTHER, MEDICAID | LOC: M LABSMTC 09:28 | PROVIDERS: ATTEND Anesthesiology | DX: Z20.828 Contact with and (suspected) exposure to other viral communicable diseases (principal) | CPT/HCPCS: C9803; U0003 ==

== ENCOUNTER → 2020-02-16 | Outpatient (CLI) | payer OTHER, MEDICAID ==
[~2020-02-16] MED LIST changes: +BUPIVACAINE HCL 0.25% 10ML VIAL As Ordered ONE; +BUPIVACAINE HCL 0.25% 30ML VIAL As Ordered ONE; +TRIAMCINOLONE ACETONIDE SUSP 40 MG/ML VIAL (J3301) As Ordered ONE; +diazePAM 5 MG TAB As Ordered ONE; +oxyCODONE 5MG TAB As Ordered ONE
== END ==
LOC: M PAIN 08:38
PROVIDERS: ATTEND Anesthesiology
DX: M79.18 Myalgia, other site (principal)
CPT/HCPCS: 20553; G0463; J3301

== ENCOUNTER → 2020-03-02 | Outpatient (CLI) | payer OTHER, MEDICAID ==
[~2020-03-02] MED LIST changes: -BUPIVACAINE HCL 0.25% 10ML VIAL As Ordered ONE; -BUPIVACAINE HCL 0.25% 30ML VIAL As Ordered ONE; -TRIAMCINOLONE ACETONIDE SUSP 40 MG/ML VIAL (J3301) As Ordered ONE; -diazePAM 5 MG TAB As Ordered ONE; -oxyCODONE 5MG TAB As Ordered ONE
[2020-03-02 17:47] LABS: HEMATOCRIT 49.6 % (42.0-52.0); HEMOGLOBIN 15.9 g/dl (13.5-17.5); MEAN CORPUSCULAR HEMOGLOBIN 28.4 pg (27.0-33.0); MEAN CORPUSCULAR HGB CONC 32.1 g/dl (32.0-36.5); MEAN CORPUSCULAR VOLUME 88.7 fl (80.0-96.0); PLATELET COUNT, AUTOMATED 194 10^3/uL (150-450); RED BLOOD COUNT 5.59 10^6/uL (4.30-6.10); WHITE BLOOD COUNT 9.8 10^3/uL (4.0-10.0)
[2020-03-02 18:05] LABS: ALBUMIN 3.8 GM/DL (3.2-5.2); ALT/SGPT 50 U/L (12-78); BILIRUBIN,TOTAL 0.5 MG/DL (0.2-1.0); BLOOD UREA NITROGEN 14 MG/DL (7-18); CALCIUM LEVEL 9.4 MG/DL (8.5-10.1); CARBON DIOXIDE LEVEL 29 MEQ/L (21-32); CHLORIDE LEVEL 106 MEQ/L (98-107); CREATININE FOR GFR 1.02 MG/DL (0.70-1.30); GLOMERULAR FILTRATION RATE > 60.0 (>60); GLUCOSE, FASTING 116 MG/DL (70-100); POTASSIUM SERUM 4.1 MEQ/L (3.5-5.1); SODIUM LEVEL 141 MEQ/L (136-145); TOTAL PROTEIN 7.1 GM/DL (6.4-8.2); VALPROIC ACID (DEPAKOTE) 101.2 UG/ML (50.0-100.0)
[2020-03-02 18:06] LABS: ALBUMIN 3.7 GM/DL (3.2-5.2); ALT/SGPT 54 U/L (12-78); BILIRUBIN,DIRECT 0.1 MG/DL (0.0-0.2); BILIRUBIN,TOTAL 0.3 MG/DL (0.2-1.0); BLOOD UREA NITROGEN 14 MG/DL (7-18); CALCIUM LEVEL 9.5 MG/DL (8.5-10.1); CARBON DIOXIDE LEVEL 31 MEQ/L (21-32); CHLORIDE LEVEL 106 MEQ/L (98-107); CHOLESTEROL LEVEL 236 MG/DL (<200); CHOLESTEROL RISK RATIO 7.375 (<5); CREATININE FOR GFR 1.01 MG/DL (0.70-1.30); GLOMERULAR FILTRATION RATE > 60.0 (>60); GLUCOSE, FASTING 114 MG/DL (70-100); HDL CHOLESTEROL 32 MG/DL (>40); NON-HDL-C 204 MG/DL; POTASSIUM SERUM 4.1 MEQ/L (3.5-5.1); SODIUM LEVEL 139 MEQ/L (136-145); TOTAL PROTEIN 7.1 GM/DL (6.4-8.2); TRIGLYCERIDES LEVEL 440 MG/DL (<150); VALPROIC ACID (DEPAKOTE) 99.3 UG/ML (50.0-100.0)
== END ==
LOC: M PLALAB 14:28
PROVIDERS: ATTEND Psychiatry & Neurology Psychiatry
DX: F41.1 Generalized anxiety disorder (principal); F42.9 Obsessive-compulsive disorder, unspecified; F43.10 Post-traumatic stress disorder, unspecified; F31.81 Bipolar II disorder

== ENCOUNTER → 2020-06-21 | Outpatient (CLI) | payer OTHER ==
[~2020-06-21] MED LIST changes: -AMIT25TA PO; +AMIT25TA17 PO; +GABA-282; -GABA-843; -MONT10TA4; +MONT5TAB2
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
== END ==
LOC: M PAIN 09:00
PROVIDERS: ATTEND Family Medicine
DX: M50.10 Cervical disc disorder with radiculopathy, unspecified cervical region (principal); G89.29 Other chronic pain; G43.909 Migraine, unspecified, not intractable, without status migrainosus; F17.210 Nicotine dependence, cigarettes, uncomplicated; Z86.59 Personal history of other mental and behavioral disorders; Z91.09 Other allergy status, other than to drugs and biological substances; Z79.899 Other long term (current) drug therapy

== ENCOUNTER → 2020-08-29 | Outpatient (CLI) | payer OTHER ==
[~2020-08-29] MED LIST changes: +LISI10TA22; -LISI10TA4; +MONT10TA10; -MONT5TAB2
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
== END ==
LOC: M PAIN 14:00
PROVIDERS: ATTEND Family Medicine
DX: M50.10 Cervical disc disorder with radiculopathy, unspecified cervical region (principal); F32.9 Major depressive disorder, single episode, unspecified; F41.9 Anxiety disorder, unspecified; G43.909 Migraine, unspecified, not intractable, without status migrainosus; Z98.1 Arthrodesis status; Z79.899 Other long term (current) drug therapy; Z91.048 Other nonmedicinal substance allergy status

== ENCOUNTER → 2020-09-18 | Outpatient (REF) | payer OTHER | LOC: M SFHCPLAZ 13:41 | PROVIDERS: ATTEND Family Medicine | DX: G40.909 Epilepsy, unspecified, not intractable, without status epilepticus (principal) ==

== ENCOUNTER → 2020-09-19 | Outpatient (REF) | payer OTHER | LOC: M SFHCPLAZ 14:55 | PROVIDERS: ATTEND Family Medicine | DX: E11.9 Type 2 diabetes mellitus without complications (principal) ==

== ENCOUNTER → 2020-11-08 | Outpatient (CLI) | payer OTHER ==
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
== END ==
LOC: M PAIN 14:00
PROVIDERS: ATTEND Family Medicine
DX: M50.10 Cervical disc disorder with radiculopathy, unspecified cervical region (principal); F41.9 Anxiety disorder, unspecified; F32.9 Major depressive disorder, single episode, unspecified; M10.9 Gout, unspecified; G43.909 Migraine, unspecified, not intractable, without status migrainosus; F17.210 Nicotine dependence, cigarettes, uncomplicated; Z79.899 Other long term (current) drug therapy; Z91.048 Other nonmedicinal substance allergy status

== ENCOUNTER → 2021-01-08 | Outpatient (CLI) | payer OTHER ==
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
== END ==
LOC: M PAIN 14:15
PROVIDERS: ATTEND Family Medicine
DX: M50.10 Cervical disc disorder with radiculopathy, unspecified cervical region (principal); F32.9 Major depressive disorder, single episode, unspecified; F41.9 Anxiety disorder, unspecified; M10.9 Gout, unspecified; G43.909 Migraine, unspecified, not intractable, without status migrainosus; Z98.1 Arthrodesis status; Z91.048 Other nonmedicinal substance allergy status; Z79.899 Other long term (current) drug therapy

== ENCOUNTER → 2021-03-13 | Outpatient (REF) | payer OTHER | LOC: M SFHCPLAZ 08:55 | PROVIDERS: ATTEND Family Medicine | DX: E11.9 Type 2 diabetes mellitus without complications (principal) ==

== ENCOUNTER 2021-04-18 10:09 | Outpatient (RCR) | payer OTHER ==
[~2021-04-18 10:09] MED LIST changes: -MONT10TA10; +MONT10TA97
== END 2021-05-08 ==
LOC: M PT 10:09
PROVIDERS: ATTEND Nurse Practitioner
DX: M54.2 Cervicalgia (principal)

== ENCOUNTER → 2021-04-27 | Outpatient (CLI) | payer OTHER ==
[~2021-04-27] MED LIST changes: +MONT10TA10; -MONT10TA97
[2021-04-27 11:43] LABS: HEMOGLOBIN A1c 5.7 %
[2021-04-27 12:03] LABS: ALBUMIN 3.8 GM/DL (3.2-5.2); ALT/SGPT 48 U/L (12-78); BILIRUBIN,TOTAL 0.4 MG/DL (0.2-1.0); BLOOD UREA NITROGEN 11 MG/DL (7-18); CALCIUM LEVEL 9.4 MG/DL (8.5-10.1); CARBON DIOXIDE LEVEL 26 MEQ/L (21-32); CHLORIDE LEVEL 106 MEQ/L (98-107); CHOLESTEROL LEVEL 260 MG/DL (<200); CHOLESTEROL RISK RATIO 8.387 (<5); CREATININE FOR GFR 1.01 MG/DL (0.70-1.30); GLOMERULAR FILTRATION RATE > 60.0 (>60); GLUCOSE, FASTING 119 MG/DL (70-100); HDL CHOLESTEROL 31 MG/DL (>40); NON-HDL-C 229 MG/DL; POTASSIUM SERUM 3.9 MEQ/L (3.5-5.1); SODIUM LEVEL 140 MEQ/L (136-145); TOTAL PROTEIN 7.2 GM/DL (6.4-8.2); TRIGLYCERIDES LEVEL 418 MG/DL (<150)
== END ==
LOC: M PLALAB 08:21
PROVIDERS: ATTEND Student in an Organized Health Care Education/Training Program
DX: E11.9 Type 2 diabetes mellitus without complications (principal)

== ENCOUNTER 2021-05-31 09:27 | Outpatient (RCR) | payer OTHER | END 2021-06-08 | LOC: M PT 09:27 | PROVIDERS: ATTEND Nurse Practitioner | DX: M54.2 Cervicalgia (principal); Z98.1 Arthrodesis status ==

== ENCOUNTER 2021-07-19 10:52 | Outpatient (RCR) | payer OTHER ==
[~2021-07-19 10:52] MED LIST changes: -MONT10TA10; +MONT10TA97
== END 2021-08-06 ==
LOC: M PT 10:52
PROVIDERS: ATTEND Nurse Practitioner
DX: M54.2 Cervicalgia (principal)

== ENCOUNTER → 2021-08-16 | Outpatient (CLI) | payer OTHER | LOC: M PAIN 11:15 | PROVIDERS: ATTEND Anesthesiology | DX: M54.2 Cervicalgia (principal); M79.10 Myalgia, unspecified site; M79.18 Myalgia, other site; R56.9 Unspecified convulsions; G43.909 Migraine, unspecified, not intractable, without status migrainosus; F41.9 Anxiety disorder, unspecified; F32.A Depression, unspecified; M10.9 Gout, unspecified; Z79.899 Other long term (current) drug therapy; Z91.040 Latex allergy status; Z91.048 Other nonmedicinal substance allergy status ==

== ENCOUNTER → 2021-11-21 | Outpatient (CLI) | payer OTHER | LOC: M PLALAB 10:28 | PROVIDERS: ATTEND Student in an Organized Health Care Education/Training Program | DX: E16.2 Hypoglycemia, unspecified (principal) ==

== ENCOUNTER → 2021-11-22 | Outpatient (REF) | payer OTHER | LOC: M SFHCPLAZ 15:09 | PROVIDERS: ATTEND Family Medicine | DX: I10 Essential (primary) hypertension (principal); E16.2 Hypoglycemia, unspecified; R73.03 Prediabetes ==

== ENCOUNTER → 2021-12-27 | Outpatient (CLI) | payer OTHER, MEDICAID | LOC: M LABSMTC 09:16 | PROVIDERS: ATTEND Anesthesiology | DX: Z01.812 Encounter for preprocedural laboratory examination (principal) ==

== ENCOUNTER → 2022-01-01 | Outpatient (CLI) | payer OTHER ==
[~2022-01-01] MED LIST changes: +BUPIVACAINE HCL 0.25% 10ML VIAL As Ordered ONE; +BUPIVACAINE HCL 0.25% 30ML VIAL As Ordered ONE; +TRIAMCINOLONE ACETONIDE SUSP 40 MG/ML VIAL (J3301) As Ordered ONE; +diazePAM 5MG TABLET As Ordered ONE
== END ==
LOC: M PAIN 13:45
PROVIDERS: ATTEND Anesthesiology
DX: M79.18 Myalgia, other site (principal); M54.2 Cervicalgia; Z98.1 Arthrodesis status; R56.9 Unspecified convulsions; G43.909 Migraine, unspecified, not intractable, without status migrainosus; F34.1 Dysthymic disorder; F42.9 Obsessive-compulsive disorder, unspecified; M10.9 Gout, unspecified; F43.10 Post-traumatic stress disorder, unspecified; F17.200 Nicotine dependence, unspecified, uncomplicated; Z79.899 Other long term (current) drug therapy; Z91.040 Latex allergy status; Z91.048 Other nonmedicinal substance allergy status
CPT/HCPCS: 20553; J3301

== ENCOUNTER → 2022-04-17 | Outpatient (REF) ==
[~2022-04-17] MED LIST changes: -BUPIVACAINE HCL 0.25% 10ML VIAL As Ordered ONE; -BUPIVACAINE HCL 0.25% 30ML VIAL As Ordered ONE; -TRIAMCINOLONE ACETONIDE SUSP 40 MG/ML VIAL (J3301) As Ordered ONE; -diazePAM 5MG TABLET As Ordered ONE
== END ==
LOC: M PLALAB 11:14
PROVIDERS: ATTEND Internal Medicine
DX: Z11.52 Encounter for screening for COVID-19 (principal)

== ENCOUNTER → 2022-06-20 | Outpatient (CLI) | payer OTHER ==
[2022-06-20 11:29] LABS: BLOOD UREA NITROGEN 16 MG/DL (9-23); CARBON DIOXIDE LEVEL 29 MMOL/L (20-31); CHLORIDE LEVEL 105 MMOL/L (98-107); CREATININE FOR GFR 0.97 MG/DL (0.70-1.30); GLOMERULAR FILTRATION RATE > 60.0 (>60); GLUCOSE, FASTING 100 MG/DL (60-100); POTASSIUM SERUM 4.4 MMOL/L (3.5-5.1); SODIUM LEVEL 140 MMOL/L (136-145)
[2022-06-20 11:30] LABS: HEMOGLOBIN A1c 5.2 % (4.0-6.0)
== END ==
LOC: M PLALAB 07:31
PROVIDERS: ATTEND Student in an Organized Health Care Education/Training Program
DX: I10 Essential (primary) hypertension (principal)

== ENCOUNTER → 2022-06-27 | Outpatient (REF) | payer OTHER | LOC: M SFHCPLAZ 13:05 | PROVIDERS: ATTEND Family Medicine | DX: L81.4 Other melanin hyperpigmentation (principal) ==

== ENCOUNTER → 2022-07-08 | Outpatient (CLI) | payer OTHER | LOC: M PAIN 09:45 | PROVIDERS: ATTEND Nurse Practitioner Family | DX: M79.18 Myalgia, other site (principal); G89.29 Other chronic pain; G43.909 Migraine, unspecified, not intractable, without status migrainosus; F17.210 Nicotine dependence, cigarettes, uncomplicated; Z86.59 Personal history of other mental and behavioral disorders; Z91.040 Latex allergy status; Z91.09 Other allergy status, other than to drugs and biological substances; Z79.899 Other long term (current) drug therapy ==

== ENCOUNTER → 2022-09-24 | Outpatient (CLI) | payer OTHER ==
[~2022-09-24] MED LIST changes: +BUPIVACAINE HCL 0.25% 10ML VIAL As Ordered ONE; +BUPIVACAINE HCL 0.25% 30ML VIAL As Ordered ONE; +TRIAMCINOLONE ACETONIDE SUSP 40MG/ML 1ML VIAL As Ordered ONE; +diazePAM 5MG TABLET As Ordered ONE
== END ==
LOC: M PAIN 08:30
PROVIDERS: ATTEND Anesthesiology
DX: M79.18 Myalgia, other site (principal); M54.2 Cervicalgia; R56.9 Unspecified convulsions; G43.909 Migraine, unspecified, not intractable, without status migrainosus; F34.1 Dysthymic disorder; M10.9 Gout, unspecified; F17.210 Nicotine dependence, cigarettes, uncomplicated; Z79.899 Other long term (current) drug therapy; Z91.040 Latex allergy status; Z91.048 Other nonmedicinal substance allergy status
CPT/HCPCS: 20553; J3301; S0020

== ENCOUNTER → 2022-11-05 | Outpatient (CLI) | payer OTHER ==
[~2022-11-05] MED LIST changes: -BACL10TA2; +BACL10TA2 PO; -BUPIVACAINE HCL 0.25% 10ML VIAL As Ordered ONE; -BUPIVACAINE HCL 0.25% 30ML VIAL As Ordered ONE; +BUPR1TAB56 PO; +CELE1CAP4 PO; +CYMB60CA4 PO; +DEPA1TAB3 PO; +LATU1TAB PO; +PARO40TA2 PO; +PROP40TA62 PO; -TRIAMCINOLONE ACETONIDE SUSP 40MG/ML 1ML VIAL As Ordered ONE; -diazePAM 5MG TABLET As Ordered ONE
== END ==
LOC: M RAD 07:43
PROVIDERS: ATTEND Nurse Practitioner Family
DX: R10.11 Right upper quadrant pain (principal)

== ENCOUNTER → 2022-11-05 | Outpatient (CLI) | payer OTHER | LOC: M PAIN 09:00 | PROVIDERS: ATTEND Nurse Practitioner Family | DX: M79.18 Myalgia, other site (principal); G89.29 Other chronic pain; M54.2 Cervicalgia; G43.909 Migraine, unspecified, not intractable, without status migrainosus; R56.9 Unspecified convulsions; F41.9 Anxiety disorder, unspecified; F32.A Depression, unspecified; M10.9 Gout, unspecified; F42.9 Obsessive-compulsive disorder, unspecified; F17.210 Nicotine dependence, cigarettes, uncomplicated; Z79.899 Other long term (current) drug therapy; Z91.040 Latex allergy status; Z91.048 Other nonmedicinal substance allergy status ==

== ENCOUNTER 2022-11-19 09:46 | Day surgery (SDC) | payer OTHER ==
[~2022-11-19] VITALS: Ht 190.5 cm; Wt 118.1 kg
[~2022-11-19 09:46] MED LIST changes: +NS 1,000 ML IV ONE
[2022-11-19] MEDS ORDERED: LIDOCAINE 2% 100MG/5ML SDV (FOR ANES.) As Ordered ONE (11:27)
[2022-11-19] MEDS ORDERED: propofoL 200 MG/20 ML VIAL As Ordered ONE ×3 (11:27→11:43)
[2022-11-19] MEDS ORDERED: SIMETHICONE 40MG/0.6ML DROPS 30ML As Ordered ONE (11:44)
[2022-11-19 11:52] VITALS: TEMP 97.2
[2022-11-19 12:24] VITALS: BP 152/87; O2SAT 96
== END 2022-11-19 12:34 | disposition home or self-care (01) ==
LOC: M OPP 09:46
PROVIDERS: ATTEND Internal Medicine Gastroenterology
DX: K64.8 Other hemorrhoids (principal); Z12.11 Encounter for screening for malignant neoplasm of colon; K29.70 Gastritis, unspecified, without bleeding; R13.10 Dysphagia, unspecified; R10.13 Epigastric pain

== ENCOUNTER → 2022-12-17 | Outpatient (CLI) | payer OTHER ==
[~2022-12-17] MED LIST changes: -NS 1,000 ML IV ONE
== END ==
LOC: M PAIN 08:45
PROVIDERS: ATTEND Nurse Practitioner Family
DX: M79.12 Myalgia of auxiliary muscles, head and neck (principal); M54.2 Cervicalgia; R56.9 Unspecified convulsions; G43.909 Migraine, unspecified, not intractable, without status migrainosus; F41.9 Anxiety disorder, unspecified; F32.A Depression, unspecified; M10.9 Gout, unspecified; F42.9 Obsessive-compulsive disorder, unspecified; F17.210 Nicotine dependence, cigarettes, uncomplicated; Z79.899 Other long term (current) drug therapy; Z91.040 Latex allergy status; Z91.048 Other nonmedicinal substance allergy status

== ENCOUNTER → 2022-12-30 | Outpatient (REF) | payer OTHER | LOC: M SFHCPLAZ 16:02 | PROVIDERS: ATTEND Student in an Organized Health Care Education/Training Program | DX: Z53.9 Procedure and treatment not carried out, unspecified reason (principal) ==

== ENCOUNTER → 2022-12-31 | Outpatient (CLI) | payer OTHER ==
[2022-12-31 10:23] LABS: CREATININE, URINE 180.7 MG/DL
[2022-12-31 10:24] LABS: MAU/CREAT RATIO 2.7 MCG/MG (0.0-30.0)
[2022-12-31 10:24] LABS: VALPROIC ACID (DEPAKOTE) 70.7 UG/ML (50.0-100.0)
[2022-12-31 10:25] LABS: ALBUMIN 3.8 G/DL (3.2-5.2); ALKALINE PHOSPHATASE 94 U/L (46-116); ALT/SGPT 22 U/L (7.0-40); AST/SGOT 12 U/L (<34); BILIRUBIN,TOTAL 0.4 MG/DL (0.3-1.2); BLOOD UREA NITROGEN 13 MG/DL (9-23); CALCIUM LEVEL 9.5 MG/DL (8.5-10.1); CARBON DIOXIDE LEVEL 29 MMOL/L (20-31); CHLORIDE LEVEL 105 MMOL/L (98-107); GLOMERULAR FILTRATION RATE > 60.0 (>60); GLUCOSE, FASTING 84 MG/DL (60-100); POTASSIUM SERUM 4.2 MMOL/L (3.5-5.1); SODIUM LEVEL 142 MMOL/L (136-145); TOTAL PROTEIN 6.8 G/DL (5.7-8.2)
[2022-12-31 10:33] LABS: FREE T4 1.04 NG/DL (0.89-1.76)
[2022-12-31 10:35] LABS: THYROID STIMULATING HORMONE 1.378 uIU/ML (0.55-4.78)
== END ==
LOC: M LAB 09:02
PROVIDERS: ATTEND Student in an Organized Health Care Education/Training Program
DX: I10 Essential (primary) hypertension (principal); G40.909 Epilepsy, unspecified, not intractable, without status epilepticus; E16.1 Other hypoglycemia

== ENCOUNTER → 2023-01-15 | Outpatient (CLI) | payer OTHER ==
[~2023-01-15] MED LIST changes: -AMIT25TA17 PO; +AMIT25TA19 PO
== END ==
LOC: M RAD 07:12
PROVIDERS: ATTEND Internal Medicine Gastroenterology
DX: K82.8 Other specified diseases of gallbladder (principal); R10.11 Right upper quadrant pain
CPT/HCPCS: 78227; A9537

== ENCOUNTER → 2023-01-24 | Outpatient (CLI) | payer OTHER ==
[~2023-01-24] MED LIST changes: +TRIAMCINOLONE ACETONIDE SUSP 40MG/ML 1ML VIAL As Ordered ONE; +diazePAM 5MG TABLET As Ordered ONE
== END ==
LOC: M PAIN 09:15
PROVIDERS: ATTEND Anesthesiology
DX: M79.18 Myalgia, other site (principal); M54.2 Cervicalgia; G43.909 Migraine, unspecified, not intractable, without status migrainosus; R56.9 Unspecified convulsions; F34.1 Dysthymic disorder; F42.9 Obsessive-compulsive disorder, unspecified; M10.9 Gout, unspecified; K90.0 Celiac disease; Z79.899 Other long term (current) drug therapy; F17.210 Nicotine dependence, cigarettes, uncomplicated; Z91.040 Latex allergy status; Z91.048 Other nonmedicinal substance allergy status
CPT/HCPCS: 20553; J0665; J3301

== ENCOUNTER → 2023-01-29 | Outpatient (CLI) | payer OTHER ==
[~2023-01-29] MED LIST changes: -TRIAMCINOLONE ACETONIDE SUSP 40MG/ML 1ML VIAL As Ordered ONE; -diazePAM 5MG TABLET As Ordered ONE
== END ==
LOC: M RAD 12:42
PROVIDERS: ATTEND Student in an Organized Health Care Education/Training Program
DX: R10.31 Right lower quadrant pain (principal)

== ENCOUNTER 2023-02-24 12:07 | Emergency (ER) | payer MEDICAID, OTHER ==
[~2023-02-24] VITALS: Ht 190.5 cm; Wt 121.7 kg
[2023-02-24 15:31] VITALS: BP 140/92; TEMP 97.9; O2SAT 97
[2023-02-24] MEDS ORDERED: CEPH500C PO (15:43)
== END 2023-02-24 15:52 | disposition home or self-care (01) ==
LOC: M ED 12:07
DX: K40.90 Unilateral inguinal hernia, without obstruction or gangrene, not specified as recurrent (principal); L66.4 Folliculitis ulerythematosa reticulata; I10 Essential (primary) hypertension; F17.200 Nicotine dependence, unspecified, uncomplicated; G43.909 Migraine, unspecified, not intractable, without status migrainosus; F43.10 Post-traumatic stress disorder, unspecified; Z79.899 Other long term (current) drug therapy

== ENCOUNTER → 2023-03-19 | Outpatient (CLI) | payer OTHER ==
[~2023-03-19] MED LIST changes: +CEPH500C PO
== END ==
LOC: M RAD 11:32
PROVIDERS: ATTEND Family Medicine
DX: M54.50 Low back pain, unspecified (principal)

== ENCOUNTER → 2023-03-31 | Outpatient (CLI) | payer OTHER ==
[~2023-03-31] MED LIST changes: +LISI20TA33 PO; +OMEP40CA4 PO; +PRED10TA2 PO; +SERO1TAB PO
== END ==
LOC: M PLAIMG 07:40
PROVIDERS: ATTEND Student in an Organized Health Care Education/Training Program
DX: M54.50 Low back pain, unspecified (principal)

== ENCOUNTER → 2023-04-11 | Outpatient (REF) | payer OTHER | LOC: M SFHCPLAZ 15:08 | PROVIDERS: ATTEND Family Medicine | DX: M10.9 Gout, unspecified (principal) ==

== ENCOUNTER → 2023-04-14 | Outpatient (CLI) | payer OTHER | LOC: M PAIN 09:30 | PROVIDERS: ATTEND Nurse Practitioner Family | DX: M79.12 Myalgia of auxiliary muscles, head and neck (principal); G89.29 Other chronic pain; G43.909 Migraine, unspecified, not intractable, without status migrainosus; F41.9 Anxiety disorder, unspecified; F32.A Depression, unspecified; M10.9 Gout, unspecified; F42.9 Obsessive-compulsive disorder, unspecified; K90.0 Celiac disease; Z79.899 Other long term (current) drug therapy; F17.210 Nicotine dependence, cigarettes, uncomplicated; Z91.040 Latex allergy status; Z91.048 Other nonmedicinal substance allergy status ==

== ENCOUNTER → 2023-04-22 | Outpatient (CLI) | payer OTHER ==
[2023-04-22 15:43] LABS: BASO # 0.1 10^3/uL (0.0-0.2); BASO % 0.5 % (0.0-1.0); EOS # 0.3 10^3/uL (0.0-0.5); EOS % 1.8 % (0.0-3.0); HEMATOCRIT 42.4 % (42.0-52.0); HEMOGLOBIN 13.4 g/dl (13.5-17.5); LYMPH # 2.8 10^3/uL (1.5-5.0); LYMPH % 18.5 % (24.0-44.0); MEAN CORPUSCULAR HEMOGLOBIN 29.9 pg (27.0-33.0); MEAN CORPUSCULAR HGB CONC 31.6 g/dl (32.0-36.5); MEAN CORPUSCULAR VOLUME 94.6 fl (80.0-96.0); MONO # 1.3 10^3/uL (0.0-0.8); NEUTROPHILS # 9.6 10^3/uL (1.5-8.5); NEUTROPHILS % 64.4 % (36.0-66.0); PLATELET COUNT, AUTOMATED 195 10^3/uL (150-450); RED BLOOD COUNT 4.48 10^6/uL (4.30-6.10); WHITE BLOOD COUNT 14.8 10^3/uL (4.0-10.0)
[2023-04-22 16:15] LABS: C REACTIVE PROTEIN QUANTITATIV 1.2 MG/DL (<1.0)
== END ==
LOC: M PLALAB 14:35
PROVIDERS: ATTEND Student in an Organized Health Care Education/Training Program
DX: M10.9 Gout, unspecified (principal)

== ENCOUNTER → 2023-04-28 | Outpatient (CLI) | payer OTHER | LOC: M PLAIMG 14:45 | PROVIDERS: ATTEND Student in an Organized Health Care Education/Training Program | DX: M79.671 Pain in right foot (principal); M10.9 Gout, unspecified ==

== ENCOUNTER → 2023-06-11 | Outpatient (CLI) | payer OTHER ==
[~2023-06-11] MED LIST changes: +LITH45TASA PO
[2023-06-11 14:50] LABS: ALBUMIN 3.6 G/DL (3.2-5.2); BLOOD UREA NITROGEN 9 MG/DL (9-23); CARBON DIOXIDE LEVEL 28 MMOL/L (20-31); CHLORIDE LEVEL 108 MMOL/L (98-107); CHOLESTEROL LEVEL 253 MG/DL (<200); CHOLESTEROL RISK RATIO 7.27 (<5); CREATININE FOR GFR 0.83 MG/DL (0.70-1.30); GLOMERULAR FILTRATION RATE > 60.0 (>60); GLUCOSE, FASTING 111 MG/DL (60-100); HDL CHOLESTEROL 34.8 MG/DL (>40); LITHIUM LEVEL 0.83 MMOL/L (1.0-1.20); NON-HDL-C 218.2 MG/DL; PHOSPHORUS LEVEL 3.6 MG/DL (2.5-4.9); SODIUM LEVEL 142 MMOL/L (136-145); TRIGLYCERIDES LEVEL 622 MG/DL (<150)
[2023-06-11 15:19] LABS: HEMOGLOBIN A1c 5.9 % (4.0-6.0)
== END ==
LOC: M PLALAB 09:22
PROVIDERS: ATTEND Student in an Organized Health Care Education/Training Program
DX: I10 Essential (primary) hypertension (principal); M1A.9XX0 Chronic gout, unspecified, without tophus (tophi)

== ENCOUNTER → 2023-06-11 | Outpatient (CLI) | payer OTHER ==
[2023-06-11 14:50] LABS: BLOOD UREA NITROGEN 10 MG/DL (9-23); CARBON DIOXIDE LEVEL 28 MMOL/L (20-31); CHLORIDE LEVEL 107 MMOL/L (98-107); CREATININE FOR GFR 0.84 MG/DL (0.70-1.30); GLOMERULAR FILTRATION RATE > 60.0 (>60); GLUCOSE, FASTING 113 MG/DL (60-100); SODIUM LEVEL 142 MMOL/L (136-145)
[2023-06-11 14:51] LABS: FREE T4 0.87 NG/DL (0.89-1.76); LITHIUM LEVEL 0.81 MMOL/L (1.0-1.20); THYROID STIMULATING HORMONE 6.973 uIU/ML (0.55-4.78)
[2023-06-11 14:53] LABS: TOTAL T3 114.5 NG/DL (60.0-181.0)
== END ==
LOC: M PLALAB 09:27
PROVIDERS: ATTEND Psychiatry & Neurology Psychiatry
DX: F41.1 Generalized anxiety disorder (principal); F42.9 Obsessive-compulsive disorder, unspecified; F32.89 Other specified depressive episodes

== ENCOUNTER → 2023-06-27 | Outpatient (CLI) | payer OTHER ==
[~2023-06-27] MED LIST changes: +ISOVUE-370 76% 100ML VIAL ONE
== END ==
LOC: M PLAIMG 10:24
PROVIDERS: ATTEND Otolaryngology
DX: D37.05 Neoplasm of uncertain behavior of pharynx (principal); M43.22 Fusion of spine, cervical region
CPT/HCPCS: 70491; Q9967

== ENCOUNTER → 2023-07-03 | Outpatient (CLI) | payer OTHER, MEDICARE ==
[~2023-07-03] MED LIST changes: -ISOVUE-370 76% 100ML VIAL ONE; +TRIAMCINOLONE ACETONIDE SUSP 40MG/ML 1ML VIAL As Ordered ONE; +diazePAM 5MG TABLET As Ordered ONE
== END ==
LOC: M PAIN 12:45
PROVIDERS: ATTEND Anesthesiology
DX: M79.12 Myalgia of auxiliary muscles, head and neck (principal); K90.0 Celiac disease; G43.909 Migraine, unspecified, not intractable, without status migrainosus; F32.A Depression, unspecified; F41.9 Anxiety disorder, unspecified; F17.210 Nicotine dependence, cigarettes, uncomplicated; Z79.899 Other long term (current) drug therapy; Z91.048 Other nonmedicinal substance allergy status
CPT/HCPCS: 20553; J0665; J3301

== ENCOUNTER → 2023-09-09 | Outpatient (CLI) | payer MEDICARE, OTHER ==
[~2023-09-09] MED LIST changes: +MONT5TAB7 PO; -SING5CHW23 PO; -TRIAMCINOLONE ACETONIDE SUSP 40MG/ML 1ML VIAL As Ordered ONE; -diazePAM 5MG TABLET As Ordered ONE
== END ==
LOC: M PAIN 16:30
PROVIDERS: ATTEND Nurse Practitioner Family
DX: M79.18 Myalgia, other site (principal); G89.29 Other chronic pain; M79.12 Myalgia of auxiliary muscles, head and neck; G43.909 Migraine, unspecified, not intractable, without status migrainosus; F41.9 Anxiety disorder, unspecified; F32.A Depression, unspecified; K90.0 Celiac disease; F17.210 Nicotine dependence, cigarettes, uncomplicated; Z79.899 Other long term (current) drug therapy; Z91.040 Latex allergy status; Z91.048 Other nonmedicinal substance allergy status

== ENCOUNTER → 2023-11-27 | Outpatient (CLI) | payer MEDICARE, OTHER ==
[2023-11-27 11:55] LABS: BLOOD UREA NITROGEN 8 MG/DL (9-23); CREATININE FOR GFR 0.77 MG/DL (0.70-1.30); GLOMERULAR FILTRATION RATE > 60.0 (>60)
== END ==
LOC: M PLALAB 07:35
PROVIDERS: ATTEND Physician Assistant Medical
DX: R13.10 Dysphagia, unspecified (principal); D37.05 Neoplasm of uncertain behavior of pharynx

== ENCOUNTER → 2023-11-27 | Outpatient (CLI) | payer MEDICARE, OTHER ==
[2023-11-27 11:54] LABS: ALBUMIN 3.9 G/DL (3.2-5.2); BLOOD UREA NITROGEN 8 MG/DL (9-23); CALCIUM LEVEL 10.8 MG/DL (8.5-10.1); CARBON DIOXIDE LEVEL 28 MMOL/L (20-31); CHLORIDE LEVEL 105 MMOL/L (98-107); CHOLESTEROL LEVEL 258 MG/DL (<200); CHOLESTEROL RISK RATIO 7.93 (<5); CREATININE FOR GFR 0.78 MG/DL (0.70-1.30); GLOMERULAR FILTRATION RATE > 60.0 (>60); GLUCOSE, FASTING 124 MG/DL (60-100); HDL CHOLESTEROL 32.5 MG/DL (>40); NON-HDL-C 225.5 MG/DL; PHOSPHORUS LEVEL 5.2 MG/DL (2.5-4.9); SODIUM LEVEL 140 MMOL/L (136-145); TRIGLYCERIDES LEVEL 833 MG/DL (<150)
[2023-11-27 11:57] LABS: URIC ACID 6.1 MG/DL (3.7-9.2)
== END ==
LOC: M PLALAB 07:37
PROVIDERS: ATTEND Student in an Organized Health Care Education/Training Program
DX: M1A.9XX0 Chronic gout, unspecified, without tophus (tophi) (principal); I10 Essential (primary) hypertension; E78.2 Mixed hyperlipidemia; R13.10 Dysphagia, unspecified; D37.05 Neoplasm of uncertain behavior of pharynx

== ENCOUNTER → 2023-12-16 | Outpatient (CLI) | payer MEDICARE, OTHER ==
[~2023-12-16] MED LIST changes: +TRIAMCINOLONE ACETONIDE SUSP 40MG/ML 1ML VIAL As Ordered ONE
== END ==
LOC: M PAIN 12:30
PROVIDERS: ATTEND Anesthesiology
DX: M79.18 Myalgia, other site (principal); G89.29 Other chronic pain; G43.909 Migraine, unspecified, not intractable, without status migrainosus; F41.9 Anxiety disorder, unspecified; F32.A Depression, unspecified; M10.9 Gout, unspecified; K90.0 Celiac disease; F17.210 Nicotine dependence, cigarettes, uncomplicated; Z79.899 Other long term (current) drug therapy; Z91.040 Latex allergy status; Z91.048 Other nonmedicinal substance allergy status
CPT/HCPCS: 20552; J0665; J3301

== ENCOUNTER → 2023-12-19 | Outpatient (CLI) | payer MEDICARE, OTHER ==
[~2023-12-19] MED LIST changes: -TRIAMCINOLONE ACETONIDE SUSP 40MG/ML 1ML VIAL As Ordered ONE
== END ==
LOC: M RAD 07:38
PROVIDERS: ATTEND Nurse Practitioner Family
DX: K76.0 Fatty (change of) liver, not elsewhere classified (principal)

== ENCOUNTER 2024-03-07 20:19 | Emergency (ER) | payer MEDICAID, MEDICARE, OTHER ==
[~2024-03-07] VITALS: Ht 190.5 cm; Wt 125.0 kg
[~2024-03-07 20:19] MED LIST changes: +GABA-1172; +GABA-1490; -GABA-282; -GABA600T4; +LITH450T11 PO; -LITH45TASA PO
[2024-03-07 20:26] VITALS: TEMP 98.4
[2024-03-07 21:08] LABS: VENOUS BASE EXCESS 1.2 (-2.0-2.0); VENOUS HCO3 25.4 MMOL/L (23.0-27.0); VENOUS O2 SATURATION 95.4 % (60.0-80.0); VENOUS PARTIAL PRESSURE CO2 39.2 mmHg (38.0-50.0); VENOUS PARTIAL PRESSURE O2 71.4 mmHg (30.0-50.0); VENOUS STANDARD HCO3 25.5 MMOL/L; VENOUS TOTAL CO2 26.6 MMOL/L (24.0-28.0)
[2024-03-07 21:14] LABS: BASO # 0.1 10^3/uL (0.0-0.2); BASO % 0.7 % (0.0-1.0); EOS # 0.2 10^3/uL (0.0-0.5); EOS % 2.1 % (0.0-3.0); HEMOGLOBIN 15.6 g/dl (13.5-17.5); LYMPH # 3.1 10^3/uL (1.5-5.0); LYMPH % 27.1 % (24.0-44.0); MEAN CORPUSCULAR HEMOGLOBIN 29.3 pg (27.0-33.0); MEAN CORPUSCULAR HGB CONC 33.9 g/dl (32.0-36.5); MEAN CORPUSCULAR VOLUME 86.3 fl (80.0-96.0); MONO % 8.7 % (2.0-8.0); NEUTROPHILS % 60.3 % (36.0-66.0); PLATELET COUNT, AUTOMATED 213 10^3/uL (150-450); RED BLOOD COUNT 5.33 10^6/uL (4.30-6.10); WHITE BLOOD COUNT 11.6 10^3/uL (4.0-10.0)
[2024-03-07 21:19] LABS: LIPASE 53 U/L (12-53)
[2024-03-07 21:20] LABS: CK-MB VALUE MASS < 1.0 NG/ML (<3.6)
[2024-03-07 21:21] LABS: OSMOLALITY SERUM 309 MOSM/KG (275-295)
[2024-03-07 21:23] LABS: ACETONE/KETONE 0.41 MMOL/L (0.02-0.27)
[2024-03-07 21:28] LABS: ALKALINE PHOSPHATASE 178 U/L (46-116); ALT/SGPT 74 U/L (7.0-40); AST/SGOT 49 U/L (<34); BILIRUBIN,DIRECT 0.3 MG/DL (<0.4); BILIRUBIN,TOTAL 0.7 MG/DL (0.3-1.2); BLOOD UREA NITROGEN 13 MG/DL (9-23); CARBON DIOXIDE LEVEL 27 MMOL/L (20-31); CHLORIDE LEVEL 96 MMOL/L (98-107); CPK CREATINE PHOSPHOKINASE 104 U/L (46-171); CREATININE FOR GFR 0.87 MG/DL (0.70-1.30); GLOMERULAR FILTRATION RATE > 60.0 (>60); GLUCOSE, FASTING 554 MG/DL (60-100); MAGNESIUM LEVEL 2.2 MG/DL (1.8-2.4); MB/CK RELATIVE INDEX 0.96 (< OR =4); POTASSIUM SERUM 3.7 MMOL/L (3.5-5.1); SODIUM LEVEL 129 MMOL/L (136-145); TOTAL PROTEIN 7.4 G/DL (5.7-8.2)
[2024-03-07] MEDS: NS 1,000 ML IV ONE (21:41)
[2024-03-07 21:43] VITALS: BP 144/89
[2024-03-07] MEDS: hydrALAZINE 20MG/ML 1ML VIAL IV STA (21:43)
[2024-03-07] MEDS: HumuLIN R (REGULAR) INSULIN (NovoLIN R) **100U/ML** PER UNIT IV ONE (21:43)
[2024-03-07 21:44] LABS: HEMOGLOBIN A1c 11.2 % (4.0-6.0)
[2024-03-07] MEDS ORDERED: INSU100I48 SQ (23:38)
[2024-03-07] MEDS ORDERED: METF-877 PO (23:38)
[2024-03-07] MEDS ORDERED: PEN-308 SC (23:38)
[2024-03-08] MEDS: LEVEMIR (INSULIN DETEMIR) 1 UNITS/0.01ML SC ONE
[2024-03-08] MEDS: NS 1,000 ML IV ONE (00:01)
[2024-03-08] MEDS ORDERED: LIPI20TA PO (00:23)
[2024-03-08 00:31] VITALS: BP 155/84; O2SAT 96
== END 2024-03-08 00:54 | disposition home or self-care (01) ==
LOC: M ED 20:19
DX: E11.65 Type 2 diabetes mellitus with hyperglycemia (principal); I16.0 Hypertensive urgency; K21.9 Gastro-esophageal reflux disease without esophagitis; F43.10 Post-traumatic stress disorder, unspecified; F31.9 Bipolar disorder, unspecified; Z91.018 Allergy to other foods; Z91.040 Latex allergy status; Z79.4 Long term (current) use of insulin; Z79.84 Long term (current) use of oral hypoglycemic drugs; Z79.899 Other long term (current) drug therapy
CPT/HCPCS: 70450; 71045; 80047; 80048; 80076; 81001; 82010; 82550; 82553; 82803; 83036; 83690; 83735; 83930; 84484; 85025; 87486; 87581; 87633; 87798; 93005; 93041; 94760; 96361; 96372; 96374; 99285; J0360; J1815

== ENCOUNTER → 2024-03-11 | Outpatient (CLI) | payer MEDICARE, MEDICAID ==
[~2024-03-11] MED LIST changes: +INSU100I48 SQ; +LIPI20TA PO; +METF-877 PO; +PEN-308 SC
== END ==
LOC: M PAIN 15:30
PROVIDERS: ATTEND Nurse Practitioner Family
DX: G89.29 Other chronic pain (principal); M79.10 Myalgia, unspecified site; G43.909 Migraine, unspecified, not intractable, without status migrainosus; F41.9 Anxiety disorder, unspecified; K90.0 Celiac disease; E11.9 Type 2 diabetes mellitus without complications; F17.210 Nicotine dependence, cigarettes, uncomplicated; Z79.4 Long term (current) use of insulin; Z79.899 Other long term (current) drug therapy; Z91.040 Latex allergy status; Z91.048 Other nonmedicinal substance allergy status

== ENCOUNTER → 2024-03-18 | Outpatient (CLI) | payer MEDICARE, OTHER ==
[2024-03-18 13:36] LABS: ALBUMIN 3.8 G/DL (3.2-5.2); ALKALINE PHOSPHATASE 125 U/L (46-116); ALT/SGPT 60 U/L (7.0-40); AST/SGOT 53 U/L (<34); BILIRUBIN,TOTAL 0.6 MG/DL (0.3-1.2); BLOOD UREA NITROGEN 13 MG/DL (9-23); CALCIUM LEVEL 10.6 MG/DL (8.5-10.1); CARBON DIOXIDE LEVEL 26 MMOL/L (20-31); CHLORIDE LEVEL 106 MMOL/L (98-107); CHOLESTEROL LEVEL 210 MG/DL (<200); CHOLESTEROL RISK RATIO 7.83 (<5); CREATININE FOR GFR 0.73 MG/DL (0.70-1.30); GLOMERULAR FILTRATION RATE > 60.0 (>60); GLUCOSE, FASTING 282 MG/DL (60-100); HDL CHOLESTEROL 26.8 MG/DL (>40); NON-HDL-C 183.2 MG/DL; POTASSIUM SERUM 4.1 MMOL/L (3.5-5.1); PTH INTACT 55.4 PG/ML (18.5-88.0); SODIUM LEVEL 138 MMOL/L (136-145); TOTAL PROTEIN 7.1 G/DL (5.7-8.2); TRIGLYCERIDES LEVEL 683 MG/DL (<150)
[2024-03-19 21:22] LABS: C-PEPTIDE 4.19 ng/mL (0.80-3.85)
[2024-03-21 22:32] LABS: GAD-65 AUTOANTIBODY < 5 IU/mL (<5)
== END ==
LOC: M PLALAB 09:02
PROVIDERS: ATTEND Student in an Organized Health Care Education/Training Program
DX: E13.9 Other specified diabetes mellitus without complications (principal); E78.00 Pure hypercholesterolemia, unspecified; M1A.9XX0 Chronic gout, unspecified, without tophus (tophi); E11.9 Type 2 diabetes mellitus without complications; I10 Essential (primary) hypertension; E78.2 Mixed hyperlipidemia; F41.1 Generalized anxiety disorder; F42.9 Obsessive-compulsive disorder, unspecified; F43.10 Post-traumatic stress disorder, unspecified; F31.81 Bipolar II disorder

== ENCOUNTER → 2024-03-18 | Outpatient (CLI) | payer MEDICARE, OTHER ==
[2024-03-18 11:00] LABS: HEMATOCRIT 45.1 % (42.0-52.0); HEMOGLOBIN 14.9 g/dl (13.5-17.5); MEAN CORPUSCULAR HEMOGLOBIN 29.7 pg (27.0-33.0); MEAN CORPUSCULAR VOLUME 89.8 fl (80.0-96.0); PLATELET COUNT, AUTOMATED 229 10^3/uL (150-450); RED BLOOD COUNT 5.02 10^6/uL (4.30-6.10)
[2024-03-18 11:59] LABS: BASOPHILS 1 % (0-1); EOSINOPHILS 4 % (0-3); LYMPHOCYTES 24 % (16-44); METAMYELOCYTES 3 % (0-0); MONOCYTES 9 % (0-5); MYELOCYTES 2 % (0-0); NEUTROPHILS 57 % (28-66)
[2024-03-18 12:03] LABS: PLATELET ESTIMATE NORMAL (NORMAL)
[2024-03-18 13:52] LABS: CHOLESTEROL LEVEL 212 MG/DL (<200); CHOLESTEROL RISK RATIO 7.79 (<5); HDL CHOLESTEROL 27.2 MG/DL (>40); NON-HDL-C 184.8 MG/DL; TRIGLYCERIDES LEVEL 679 MG/DL (<150)
[2024-03-18 14:08] LABS: LITHIUM LEVEL 0.72 MMOL/L (1.0-1.20)
== END ==
LOC: M PLALAB 08:54
PROVIDERS: ATTEND Psychiatry & Neurology Psychiatry
DX: F41.1 Generalized anxiety disorder (principal); F42.9 Obsessive-compulsive disorder, unspecified; F43.10 Post-traumatic stress disorder, unspecified; F31.81 Bipolar II disorder; E78.00 Pure hypercholesterolemia, unspecified

== ENCOUNTER → 2024-03-18 | Outpatient (CLI) | payer MEDICARE, OTHER ==
[2024-03-18 13:55] LABS: BLOOD UREA NITROGEN 13 MG/DL (9-23); CALCIUM LEVEL 10.6 MG/DL (8.5-10.1); CARBON DIOXIDE LEVEL 26 MMOL/L (20-31); CHLORIDE LEVEL 103 MMOL/L (98-107); CHOLESTEROL LEVEL 209 MG/DL (<200); CHOLESTEROL RISK RATIO 6.96 (<5); CREATININE FOR GFR 0.74 MG/DL (0.70-1.30); GLOMERULAR FILTRATION RATE > 60.0 (>60); GLUCOSE, FASTING 284 MG/DL (60-100); POTASSIUM SERUM 4.1 MMOL/L (3.5-5.1); SODIUM LEVEL 135 MMOL/L (136-145); TRIGLYCERIDES LEVEL 691 MG/DL (<150)
[2024-03-18 13:56] LABS: URIC ACID 3.7 MG/DL (3.7-9.2)
[2024-03-18 14:07] LABS: HEMOGLOBIN A1c 11.1 % (4.0-6.0)
== END ==
LOC: M PLALAB 08:59
PROVIDERS: ATTEND Student in an Organized Health Care Education/Training Program
DX: M1A.9XX0 Chronic gout, unspecified, without tophus (tophi) (principal); E11.9 Type 2 diabetes mellitus without complications; I10 Essential (primary) hypertension; E78.2 Mixed hyperlipidemia

== ENCOUNTER → 2024-05-27 | Outpatient (CLI) | payer MEDICAID, MEDICARE, OTHER | LOC: M PLALAB 15:29 | PROVIDERS: ATTEND Student in an Organized Health Care Education/Training Program | DX: E11.9 Type 2 diabetes mellitus without complications (principal) ==

== ENCOUNTER → 2024-06-10 | Outpatient (CLI) | payer MEDICARE | LOC: M PAIN 11:00 | PROVIDERS: ATTEND Nurse Practitioner Family | DX: M79.10 Myalgia, unspecified site (principal); G89.29 Other chronic pain; F17.210 Nicotine dependence, cigarettes, uncomplicated; Z79.4 Long term (current) use of insulin; Z79.84 Long term (current) use of oral hypoglycemic drugs; Z79.899 Other long term (current) drug therapy; Z80.51 Family history of malignant neoplasm of kidney; Z91.040 Latex allergy status; Z91.048 Other nonmedicinal substance allergy status ==

== ENCOUNTER → 2024-07-16 | Outpatient (CLI) | payer MEDICARE ==
[~2024-07-16] MED LIST changes: +TRIAMCINOLONE ACETONIDE SUSP 40MG/ML 1ML VIAL As Ordered ONE
== END ==
LOC: M PAIN 08:00
PROVIDERS: ATTEND Anesthesiology
DX: M79.18 Myalgia, other site (principal); G89.29 Other chronic pain; G43.909 Migraine, unspecified, not intractable, without status migrainosus; E11.9 Type 2 diabetes mellitus without complications; F17.210 Nicotine dependence, cigarettes, uncomplicated; Z79.84 Long term (current) use of oral hypoglycemic drugs; Z79.899 Other long term (current) drug therapy; Z91.040 Latex allergy status; Z91.048 Other nonmedicinal substance allergy status
CPT/HCPCS: 20553; J0665; J3301

== ENCOUNTER → 2024-08-20 | Outpatient (CLI) | payer MEDICARE, MEDICAID ==
[~2024-08-20] MED LIST changes: -TRIAMCINOLONE ACETONIDE SUSP 40MG/ML 1ML VIAL As Ordered ONE
[2024-08-20 14:29] LABS: BASO # 0.1 10^3/uL (0.0-0.2); BASO % 0.9 % (0.0-1.0); EOS # 0.4 10^3/uL (0.0-0.5); EOS % 3.4 % (0.0-3.0); HEMATOCRIT 44.7 % (42.0-52.0); HEMOGLOBIN 14.2 g/dl (13.5-17.5); LYMPH # 3.6 10^3/uL (1.5-5.0); LYMPH % 32.3 % (24.0-44.0); MEAN CORPUSCULAR HEMOGLOBIN 29.5 pg (27.0-33.0); MEAN CORPUSCULAR HGB CONC 31.8 g/dl (32.0-36.5); MEAN CORPUSCULAR VOLUME 92.9 fl (80.0-96.0); MONO # 0.8 10^3/uL (0.0-0.8); MONO % 7.4 % (2.0-8.0); NEUTROPHILS # 6.1 10^3/uL (1.5-8.5); NEUTROPHILS % 54.6 % (36.0-66.0); PLATELET COUNT, AUTOMATED 254 10^3/uL (150-450); RED BLOOD COUNT 4.81 10^6/uL (4.30-6.10); WHITE BLOOD COUNT 11.2 10^3/uL (4.0-10.0)
[2024-08-20 14:32] LABS: ALBUMIN 4.1 G/DL (3.2-5.2); ALKALINE PHOSPHATASE 45 U/L (40-129); ALT/SGPT 25 U/L (7.0-40); AST/SGOT 25 U/L (<34); BILIRUBIN,TOTAL 0.3 MG/DL (0.3-1.2); BLOOD UREA NITROGEN 15 MG/DL (9-23); CALCIUM LEVEL 9.7 MG/DL (8.5-10.1); CARBON DIOXIDE LEVEL 29 MMOL/L (20-31); CHLORIDE LEVEL 108 MMOL/L (98-107); CHOLESTEROL LEVEL 132 MG/DL (<200); CHOLESTEROL RISK RATIO 4.09 (<5); CREATININE FOR GFR 0.99 MG/DL (0.70-1.30); GLOMERULAR FILTRATION RATE > 60.0 (>60); GLUCOSE, FASTING 94 MG/DL (60-100); HDL CHOLESTEROL 32.2 MG/DL (>40); LDL CHOLESTEROL 59.4 MG/DL (<100); NON-HDL-C 99.8 MG/DL; SODIUM LEVEL 145 MMOL/L (136-145); TOTAL PROTEIN 7.3 G/DL (5.7-8.2); TRIGLYCERIDES LEVEL 202 MG/DL (<150)
[2024-08-20 14:34] LABS: THYROID STIMULATING HORMONE 4.314 uIU/ML (0.55-4.78)
[2024-08-20 14:36] LABS: FREE T4 1.08 NG/DL (0.89-1.76); URIC ACID 4.4 MG/DL (3.7-9.2)
[2024-08-20 14:40] LABS: HEMOGLOBIN A1c 5.3 % (4.0-6.0)
== END ==
LOC: M PLALAB 09:24
PROVIDERS: ATTEND Student in an Organized Health Care Education/Training Program
DX: Z00.00 Encounter for general adult medical examination without abnormal findings (principal); E07.9 Disorder of thyroid, unspecified; E78.00 Pure hypercholesterolemia, unspecified